=== PATIENT | female | born 1985 | race Caucasian/White ===

== ENCOUNTER 2023-07-14 09:14 | Outpatient (AMB) | payer OTHER, SELFPAY ==
--- NOTE | 2023-07-14 09:39 | A.OFFVIS_ITS ---
Vital Signs 07/14/23 09:50 Height 5 ft 5 in Weight 189 lb 2 oz BMI 31.5 BP 98/63 Blood Pressure Location Lt brachial Position Sitting Pulse 84 Intake Visit Reasons: persistent constipation Intake Note: Patient is seen in office for evaluation and treatment of persistent constipation. 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 Reports having 2-3 BMs per week. Passes very small pebble like pieces that are hard and has to strain a lot. Has done pelvic floor PT x2 for primarily for dyspareunia and urinary incontinence. Obstetric hx if significant for prolonged labor of 36 hours - with vacuum assisted delivery 2018. Had 2nd degree perineal tears. Diet is low in fiber. [facility] Surgical History (Updated 07/14/23 @ 09:56 by LUIS DANIEL Winkler) History of bilateral breast reduction surgery History of tonsillectomy History of loop electrical excision procedure (LEEP) History of lumpectomy of left breast Social History (Updated 07/14/23 @ 09:56 by LUIS DANIEL Winkler) Alcohol intake: former Patient Tobacco Use Status: Never used Tobacco Review of Systems Const All systems reviewed & are unremarkable except as noted in HPI and below Physical Exam Vital Signs: Last Vital Signs Pulse 84 07/14/23 09:50 BP 98/63 07/14/23 09:50 BMI result Body Mass Index 31.5 No acute distress Nonicteric Abdomen soft, nondistended Alert and oriented x3, normal gait Assessment & Plan Assessment & Plan (1) Constipation: Code(s): K59.00 - Constipation, unspecified Category: Medical Plan Reviewed that likely has CIC, a component of pelvic floor dysfunction can not be ruled out given obstetric hx and other assoc sx. Plan: - Labs as below - Add fiber, increase hydration - Add senna in AM and take miralax daily - this can be titrated to effect - Elevate legs while having a BM Follow up in 4 weeks to review response - low threshold to proceed with outlet testing if no significant improvement with above Orders: Orders Complete Blood Count no Diff 07/14/23 K59.00 - Constipation, unspecified Immunoglobulin A 07/14/23 K59.00 - Constipation, unspecified TSH reflex Free T4 07/14/23 K59.00 - Constipation, unspecified Transglutaminase IgA 07/14/23 K59.00 - Constipation, unspecified Coding Level of Care Code New Pt Level 3 (96550) Diagnoses Constipation K59.00
[2023-07-14 09:50] VITALS: BP 98/63; PULSE 84; BMI 31.5
== END 2023-07-14 10:16 | disposition home or self-care (01) ==
PROVIDERS: PCP Internal Medicine; Visit Provider Internal Medicine
DX: K59.00 Constipation, unspecified (principal)
CPT/HCPCS: 99203

== ENCOUNTER → 2023-07-14 09:14 | Outpatient (BNVA) | payer OTHER, SELFPAY | PROVIDERS: PCP Internal Medicine; Visit Provider Internal Medicine ==

== ENCOUNTER 2024-07-24 17:34 | Emergency (ER) | payer OTHER, SELFPAY ==
--- NOTE | 2024-07-24 17:36 | ECG_ITS ---
Test Reason : PALPITATIONS Blood Pressure : */* mmHG Vent. Rate : 80 BPM Atrial Rate : 80 BPM P-R Int : 140 ms QRS Dur : 86 ms QT Int : 372 ms P-R-T Axes : 59 42 20 degrees QTcB Int : 429 ms Normal sinus rhythm Normal ECG No previous ECGs available Referred By: Mila Tapia Electronically Signed By: JOSH ALBERTO
[2024-07-24 17:45] VITALS: BP 124/86; PULSE 89; RESP 20; TEMP 36.2; O2SAT 98; BMI 31.7
--- NOTE | 2024-07-24 17:47 | ED.CHESTPAIN ---
HPI - Chest Pain General Chief Complaint: Arrhythmia/Palpitations Stated Complaint: heart palpitations, pressure Time Seen by Provider: 07/24/24 20:11 Source: patient Mode of arrival: ambulatory Limitations: no limitations History of Present Illness ED Provider: DR. Camacho HPI narrative: 39-year-old female walked into the emergency department for evaluation of 2-3 weeks of intermittent palpitation, it usually happen on a daily basis for few minutes each day, no clear aggravating factor, no clear relieving factor, patient is given up all caffeine drinks, no use of recreational drugs, no use of alcohol, no use of regular cigarette smoking. No chest pain, no shortness of breath, no recent travel, no lower extremity swelling or tenderness. No recent travel, no recent prolonged immobilization . No dysuria, no frequency urination, no hematuria, normal bowel movement, no abdominal pain. Related Data Home Medications ?Medication ?Instructions ?Recorded ?Confirmed bupropion HCl 300 mg 24 hr tablet, 300 mg PO QAM 07/14/23 extended release nifedipine 30 mg tablet,extended 30 mg PO DAILY 07/14/23 release 24 hr norethindrone 1.5 mg-ethinyl 1 tab PO DAILY 07/14/23 estradiol 30 mcg(21)/iron 75 mg(7) tablet (Junel FE 1.5/30 (28)) sertraline 100 mg tablet 100 mg PO DAILY 07/14/23 trazodone 50 mg tablet 50 mg PO BEDTIME PRN 07/14/23 Allergies Allergy/AdvReac Type Severity Reaction Status Date / Time adhesive tape Allergy Rash Verified 07/24/24 17:46 oats Allergy Itching Verified 07/24/24 17:46 wheat Allergy Itching Verified 07/24/24 17:46 Review of Systems Review of Systems: all other systems are reviewed and are negative Constitutional: Reports as per HPI and Reports no additional constitutional complaints Eyes: Reports as per HPI and Reports no additional eye complaints Reports system reviewed and no additional complaints, except as documented Cardiovascular: Reports as per HPI and Reports no additional cardiovascular complaints Respiratory: Reports as per HPI and Reports no additional respiratory complaints Gastrointestinal: Reports as per HPI and Reports no additional gastrointestinal complaints Genitourinary: Reports no additional female genitourinary complaints Musculoskeletal: Reports no additional musculoskeletal complaints Skin/Breast: Reports system reviewed and no additional complaints, except as docu Psychiatric: Reports no additional psychiatric complaints Endocrine: Reports no additional endocrine complaints Hematologic/Lymphatic: Reports no additional hematologic/lymphatic complaints Allergic/Immunologic: Reports no additional allergic/immunologic complaints Reports system reviewed and no additional complaints, except as documented and Reports Abnormal speech present [facility] Past Medical History Surgical History History of bilateral breast reduction surgery History of tonsillectomy History of loop electrical excision procedure (LEEP) History of lumpectomy of left breast Social History Social History Alcohol intake: former Patient Tobacco Use Status: Never used Tobacco Smoked in Last 30 Days: No Use of substances other than those prescribed or required for medical reasons: No Advance Directives: Yes Advance Directives Information Provided: Yes Advance Directives on File: No Physical Exam Vital Signs: Vital Signs: Last Vital Signs Temp 98.5 F 07/24/24 19:38 Pulse 75 07/24/24 19:38 Resp 11 L 07/24/24 19:38 BP 117/78 07/24/24 19:38 Pulse Ox 98 07/24/24 17:45 O2 Del Method Room Air 07/24/24 19:38 O2 Flow Rate 98 07/24/24 19:38 BMI result Body Mass Index 31.7 Vital signs have been reviewed and appear to be correct. Blood pressure elevated. Heart rate normal. Respiratory rate normal. Temperature normal. Oxygen saturation normal. Appearance: Alert. Oriented X3. No acute distress. Head: Normal external exam. Normocephalic. Atraumatic. No Ramirez signs noted. No raccoon eyes noted Eyes: PERRLA. EOMI. Conjunctiva and sclera normal. Eyelids normal. ENT: TM's Normal. Pharynx normal. Uvula midline. Moist mucous membranes. No trismus noted. No drooling noted. No muffled voice noted. Neck: Normal inspection. Neck supple. FROM. No adenopathy. Thyroid Normal. No meningeal signs. No neck mass noted. CVS: Normal heart rate and rhythm. Heart sound normal. No murmurs noted. Pulses normal throughout. Respiratory: No respiratory distress. Painless inspiration. Breath sounds normal. No wheezes/rales/rhonchi noted. Chest nontender. No accessory muscle usage noted or decreased air movement noted. Abdomen: Soft and nontender. Bowel sounds normal in all 4 quadrants. No distention noted. No organomegaly noted. No visible injury noted. Back: No CVA tenderness. Full range of motion noted. Skin: Skin warm and dry. Normal skin color. Normal skin turgor. No rashes/lesions/lacerations noted. Extremities: No lower extremity edema. Extremities exhibit normal range of motion. Extremities nontender. Neuro: Oriented X 3. Cranial nerve exam: II-XII are grossly intact No motor deficit. No sensory deficit. Reflexes normal. Course Course Course Narrative: This is an RME performed by Leslee Tapia SETTER HELPER: Additional HPI, ROS, PE not included below will be deferred to primary provider. Patient is a 39-year-old female who presents emergency department for evaluation. She states that she has been experiencing palpitations every few minutes daily for 1-2 weeks. It is felt sternum rest as well as with activity. She had initially been ignoring it thought it may be due to excessive caffeine intake. But despite stopping caffeine symptoms still persist. She is not certain whether this may be a side effect of her bupropion. Plan: EKG, serum labs Reevaluation(s) Reevaluation #1: 2-3 weeks of subjective palpitation, nothing was detected while patient is on the monitor in the ED, unremarkable lab workup today. Time: 20:34 Medical Decision Making Differential Diagnosis Differential Diagnoses: The differential diagnosis associated with the presentation includes ( Drug abuse, anxiety induced palpitation, , electrolyte derangement, severe anemia.) Admission/Observation Consideration of admission/observation: Escalation of care including admission/observation considered Lab Data MDM Lab Attestation statement: I reviewed the patient's lab results. 07/24/24 18:20 07/24/24 18:20 Labs: Lab Results 07/24/24 Range/Units 18:20 WBC 12.6 H (4.8-10.8) X10*3/uL RBC 4.42 (4.20-5.50) X10*6/uL Hgb 13.3 (12.0-16.0) g/dl Hct 39.0 (37.0-47.0) % MCV 88.2 (80.0-98.0) fL MCH 30.1 (27.0-33.0) pg MCHC 34.1 (31.0-35.0) g/dl RDW 12.7 (11.0-16.0) % Plt Count 137 L (160-400) X10*3/uL MPV 12.0 (9.4-12.3) fL Immature Gran % (Auto) 0.5 H (0.0-0.4) % Neut % (Auto) 62.1 (45-73) % Lymph % (Auto) 30.1 (20-40) % [place] % (Auto) 5.5 (2-11) % Eos % (Auto) 1.2 (0-4) % Baso % (Auto) 0.6 (0-2) % Lymph # (Auto) 3.8 (1.2-4.9) X10*3/uL [place] # (Auto) 0.7 (0.1-1.2) X10*3/uL Eos # (Auto) 0.2 (0.0-0.4) X10*3/uL Baso # (Auto) 0.1 (0.0-0.2) X10*3/uL Abs Immat Gran (auto) 0.06 H (0.00-0.03) X10*3/uL Absolute Neuts (auto) 7.8 (2.0-8.3) x10*3/uL Absolute Nucleated RBC 0.000 (0.0-0.012) X10*3/uL Nucleated RBC % (auto) 0.0 (0.0-0.2) /100WBC Sodium 142 (135-145) mmol/L Potassium 3.8 (3.3-5.1) mmol/L Chloride 107 (96-108) mmol/L Carbon Dioxide 24 (22-29) mmol/L Anion Gap 15 (12-20) BUN 14 (9-16) mg/dL Creatinine 0.76 (0.5-1.4) mg/dL Estim Creat Clear Calc 107.9 Estimated GFR > 60 Random Glucose 98 (60-115) mg/dL Calcium 9.1 (8.4-10.2) mg/dL Magnesium 2.3 (1.6-2.6) mg/dL Total Bilirubin 0.4 (0.0-1.0) mg/dL AST 19 (5-31) U/L ALT 17 (0-31) U/L Alkaline Phosphatase 91 (39-117) U/L Troponin I High Sens < 2.7 (<3.5-17.0) ng/L Total Protein 7.3 (6.5-8.0) g/dL Albumin 4.6 (3.5-5.0) g/dL TSH 1.45 (0.32-4.0) uIU/mL Beta HCG, Quant < 2 mIU/mL Influenza Type A (PCR) NEGATIVE (Negative) Influenza Type B (PCR) NEGATIVE (Negative) RSV RNA Qual (PCR) NEGATIVE (Negative) SARS-CoV-2 RNA (RT-PCR) NEGATIVE (Negative) Independent Interpretation I performed an independent interpretation of an: EKG ( normal sinus rhythm at 80 beats per minutes, normal intervals, no ST-T changes.) Radiology Impression Discussion of test interpretation with radiology: I have reviewed the radiologist's reading. Discharge Plan Discharge Clinical Impression: Palpitations Patient Disposition: Home, Self-Care Instructions: Heart Palpitations (ED) Prescriptions: No Action sertraline 100 mg tablet 100 mg PO DAILY bupropion HCl 300 mg tablet extended release 24 hr 300 mg PO QAM trazodone 50 mg tablet 50 mg PO BEDTIME PRN nifedipine 30 mg tablet extended release 24hr 30 mg PO DAILY norethindrone-e.estradiol-iron [ (28)] 1.5 mg-30 mcg (21)/75 mg (7) tablet 1 tab PO DAILY Referrals: Jing Coffey MD [Primary Care Provider] - Spencer Guzman MD [Physician] - Print Language: Bengali
[2024-07-24 18:28] LABS: MANUAL DIFF FLAG NO
[2024-07-24 18:49] LABS: Basophils Absolute Auto 0.1 X10*3/uL (0.0-0.2); Basophils Percent Auto 0.6 % (0-2); Eosinophils Absolute Auto 0.2 X10*3/uL (0.0-0.4); Eosinophils Percent Auto 1.2 % (0-4); Hemoglobin 13.3 g/dl (12.0-16.0); Imm Gran Abs Auto 0.06 X10*3/uL (0.00-0.03); Imm Gran Pct Auto 0.5 % (0.0-0.4); Lymphocytes Absolute Auto 3.8 X10*3/uL (1.2-4.9); Lymphocytes Percent Auto 30.1 % (20-40); Mean Corpuscular HGB Conc 34.1 g/dl (31.0-35.0); Mean Corpuscular Hemoglobin 30.1 pg (27.0-33.0); Mean Corpuscular Volume 88.2 fL (80.0-98.0); Monocytes Absolute Auto 0.7 X10*3/uL (0.1-1.2); Monocytes Percent Auto 5.5 % (2-11); Neutrophils Absolute Auto 7.8 x10*3/uL (2.0-8.3); Neutrophils Percent Auto 62.1 % (45-73); Platelet Count 137 X10*3/uL (160-400); Red Blood Count 4.42 X10*6/uL (4.20-5.50); Red Cell Distribution Width 12.7 % (11.0-16.0); White Blood Count 12.6 X10*3/uL (4.8-10.8)
[2024-07-24 18:50] LABS: Alanine Aminotransferase 17 U/L (0-31); Albumin Level 4.6 g/dL (3.5-5.0); Alkaline Phosphatase 91 U/L (39-117); Anion Gap 15 (12-20); Aspartate Amino Transferase 19 U/L (5-31); Bilirubin Total 0.4 mg/dL (0.0-1.0); Blood Urea Nitrogen 14 mg/dL (9-16); Calcium 9.1 mg/dL (8.4-10.2); Carbon Dioxide 24 mmol/L (22-29); Chloride 107 mmol/L (96-108); Creatinine Clr Calc Pharmacy 107.9; Estimated Glomerular Filt Rate > 60; Glucose Random 98 mg/dL (60-115); Magnesium 2.3 mg/dL (1.6-2.6); Potassium 3.8 mmol/L (3.3-5.1); Sodium 142 mmol/L (135-145); Total Protein 7.3 g/dL (6.5-8.0)
[2024-07-24 18:54] LABS: Troponin-I High Sensitivity < 2.7 ng/L (<3.5-17.0)
[2024-07-24 19:05] LABS: HCG Quantitative < 2 mIU/mL; TSH reflex Free T4 1.45 uIU/mL (0.32-4.0)
[2024-07-24 19:06] LABS: Influenza A PCR NEGATIVE (Negative); Influenza B PCR NEGATIVE (Negative); Resp Syncy Virus RNA Qual PCR NEGATIVE (Negative); SARS COV2 PCR INHOUSE NEGATIVE (Negative)
[2024-07-24 19:38] VITALS: BP 117/78; PULSE 75; RESP 11; TEMP 36.9
--- NOTE | 2024-07-24 20:32 | PC.NURSE ---
Pt resting comfortably on stretcher. Callbell within reach and patient instructed on use. Pt placed on air sampling and monitoring. VSS.
[2024-07-24 21:05] VITALS: BP 113/79; PULSE 74; RESP 26; TEMP 36.7; O2SAT 97
[2024-07-24 21:25] VITALS: BP 113/79; PULSE 74; RESP 26; TEMP 36.7; O2SAT 97
== END 2024-07-24 21:25 | disposition home or self-care (01) ==
PROVIDERS: Nurse Practitioner Family; Emergency Provider Emergency Medicine; PCP Internal Medicine
DX: R00.2 Palpitations (principal); Z03.818 Encounter for observation for suspected exposure to other biological agents ruled out
CPT/HCPCS: 0241U; 80053; 83735; 84443; 84484; 84702; 85025; 93005; 99283; 99285

== ENCOUNTER → 2024-07-24 17:36 | Outpatient (BNV) | payer OTHER, SELFPAY | PROVIDERS: Emergency Provider Emergency Medicine; PCP Internal Medicine; Visit Provider Internal Medicine | DX: R00.2 Palpitations (principal) | CPT/HCPCS: 93010 ==

== ENCOUNTER 2025-01-31 10:57 | Outpatient (AMB) | payer OTHER, SELFPAY ==
--- OUTSIDE RECORDS SUMMARY | 2025-01-26 13:30 | XMS_ITS | Encounter Summary ---
Author Organization [facility] Address [address] [place] [address] Care Team Providers Care Intraoperative Neuro Tech Name Role Phone Unknown Primary Care Provider [phone] Encounter Details Date Type Department Care Team ([facility] st Contact Info) Description 01/26/2025 1:30 PM EST Ancillary Procedure [facility] Radiology [address] [place] [address] Provider, File Room Social History Tobacco Use Types Packs/Day Years Used Date Smoking Tobacco: Never Alcohol Use Standard Drinks/Week Comments Not Currently 0 (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 Comments Unknown Sex and Gender Information Value Date Recorded Sex Assigned at Female 09/30/2024 2:28 PM EDT Legal Sex Female 2:25 PM EDT Gender Identity Female 09/30/2024 2:28 PM EDT Sexual Orientation Heterosexual (straight) 09/30 2:28 PM EDT documented as of this encounter Plan of Treatment Not on file documented as of this encounter Procedures Procedure Name Priority Date/Time Associated Diagnosis Comments MOY ARCHIVE FOR REFERENCE ONLY US Routine 01/26/2025 1:30 PM EST documented in this encounter Results * MOY Archive for reference only US (01/26/2025 1:30 PM EST) Kyle MALDONADOERSON - 01/26/2025 1:28 PM EST This order has been auto-finalized and does not contain a result. us File Room Provider IMG DIGITIZE FILMS Final Resu lt SCOTTIE [phone] documented in this encounter Visit Diagnoses Not on filedocumented in this encounter Care Teams Intraoperative Neuro Tech Relationship Specialty Start Date End Date Unknown Unknow Provider Address PCP - General 10/18/24 documented as of this encounter
--- NOTE | 2025-01-31 10:58 | MHC.PC.OV ---
Vital Signs 01/31/25 11:01 Height 5 ft 6 in Weight 197 lb 6 oz BMI 31.9 BP 110/72 Blood Pressure Location Lt brachial Position Sitting Respiration 16 Pulse 77 Pulse Source Pulse Oximeter Temp 97.3 F Temp Source Temporal Artery Scan Pulse Oximetry (%) 97 Oxygen Delivery Method Room Air Intake Visit Reasons: f/u weight loss Stick Feeder Required: No Accompanied by: Self / Same As Patient Allergies adhesive tape Allergy (Verified 01/31/25 10:58) Rash oats Allergy (Verified 01/31/25 10:58) Itching wheat Allergy (Verified 01/31/25 10:58) Itching Medication List - Last Reconciled 01/31/25 by Jing Coffey MD betamethasone, augmented 0.05 % appl topical buspirone 7.5 mg PO BID cetirizine 10 mg PO DAILY PRN desvenlafaxine succinate ER 100 mg PO DAILY desvenlafaxine succinate ER 50 mg PO DAILY naltrexone mg PO .QD norethindrone-e.estradiol-iron 1.5 mg-30 mcg (21)/75 mg (7) (.08/20 (28)) 1 tab PO DAILY trazodone 50 mg PO BEDTIME PRN Tobacco use date assessed: 01/31/25 Dental Screening Dental Screen Date: 01/31/25 Did you have a dental visit in the last 12 months?: Yes Did you have a dental problem in the last 6 months where you did not have access to dental care?: No Was dental information given to patient?: Patient has dentist HPI HPI Comments History of Present Illness Details The patient is a 39-year-old female presenting to [facility] care to follow up on endometriosis, low platelets, and to discuss weight management options. Endometriosis: The patient was previously seen for pelvic issues and an ultrasound revealed a cyst. She subsequently saw an endometriosis specialist in [place]. She had a repeat ultrasound a few weeks ago, which showed the original cyst is no longer visible. She has sent the original ultrasound and MRI reports to the specialist and is awaiting a response. Thrombocytopenia: The patient has a history of low platelets, which was noted by a functional medicine provider to be trending down again. This issue has been ongoing for seven years, since she was . She saw a apprentice plant attendant at [facility] who was reportedly unconcerned by the levels. Prediabetes: Recent lab results from [facility] showed she was in the prediabetic range. However, a subsequent hemoglobin A1c level on December 15 was 5.3%, which is within the normal range. Weight Management: The patient is interested in starting a weight loss injection. Her insurance plan covers [employer]. She reports chronic constipation but denies nausea. 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 Diagnostic Results: - Ultrasound: A recent ultrasound showed that a previously identified cyst is no longer visible. - Labs (from October): Platelet count of 114; other readings were around 122 and in the low 100s. - Labs: Indicated prediabetic range at one point. - Labs (December 15): Hemoglobin A1c was 5.3%. - Labs: Showed elevated apolipoprotein B and C-reactive protein (CRP) - Labs: Indicated some autoimmune markers consistent with Trent's. - Labs: Celiac screen was negative. Review of Systems -General: Reports clothes feeling looser and looking less fluffy. -Gastrointestinal: Reports chronic constipation. Denies nausea. - Integumentary/Extremities: Denies edema or swelling on pressing. Physical Exam - Constitutional: Well-appearing female. - Respiratory: Lungs are clear to auscultation bilaterally. - Cardiovascular: A very soft murmur is noted on auscultation. Normal s1, s2 - Abdomen: Soft, non-tender to palpation, with good bowel sounds. - Lymphatic: No cervical lymphadenopathy on palpation. - Extremities: Trace edema noted. Assessment and Plan 1. Endometriosis - The patient has been evaluated by a specialist, and a recent ultrasound shows resolution of a previously seen cyst. 2. Thrombocytopenia - The patient has a history of low platelets that has been ongoing since a seven years ago. - A previous hematology consult was reportedly dismissive. - Plan is to recheck CBC and refer for a second opinion with the in-house hematology team. 3. Prediabetes and Weight Management - The patient has a history of results in the prediabetic range, though a recent A1c was normal. - She is interested in medical weight loss. - Plan is to start Wegovy 0.25 mg weekly, titrating up monthly based on tolerance - The patient was counseled on potential side effects like constipation and nausea, as well as the importance of using a nutrition tracker and engaging in regular aerobic exercise. - Plan to recheck hemoglobin A1c today. 4. Heart Murmur - A very soft murmur was auscultated on exam. - Given the patient's family history of a bicuspid aortic valve, will obtain records re date of last echocardiogram and consider reordering. 5. Health Maintenance - Follow up in 4 months for physical Discussion Notes I had a discussion with the patient regarding her follow-up for endometriosis and noted she has already seen a specialist and is awaiting his feedback. We discussed her chronic low platelets, and I explained that we would recheck her levels today and I would refer her for a second opinion with our hematology team here. We extensively discussed initiating a weight loss injection, specifically Wegovy, which is covered by her insurance. I explained the starting dose of 0.25 mg, the titration schedule of increasing the dose every four weeks, and the process for monitoring side effects like constipation and nausea via the patient portal. I also emphasized the importance of adjunctive lifestyle measures, including tracking caloric intake with an ning and performing three hours of aerobic exercise per week to help with insurance approvals for higher doses and to maintain weight loss. Patient Instructions - We will start you on Wegovy for weight management. We will begin at the 0.25 mg dose. I will send the prescription to your pharmacy. - Please message me through the patient portal during the third week of each new dose of Wegovy to let me know your weight and if you are having any side effects, so we can plan for the next dose increase. - It is recommended to use a nutrition tracker ning like [employer] to monitor your daily calories and to get at least three hours of aerobic exercise per week. [facility] Medical History (Updated 01/31/25 @ 11:46 by Jing Coffey MD) Endometriosis Prediabetes Anemia, unspecified Idiopathic thrombocytopenic purpura (ITP) Anxiety Depression Surgical History History of bilateral breast reduction surgery History of tonsillectomy History of loop electrical excision procedure (SERGIOP) History of lumpectomy of left breast Family History (Updated 01/31/25 @ 09:34 by Jing Coffey MD) Mother Bicuspid aortic valve Borderline diabetes Primary hypertension Osteoporosis Sleep apnea Paternal Grandfather Stroke Skin cancer FH: prostate cancer Maternal Grandfather Alcoholism Paternal Grandmother Pulmonary embolism Social History Housing: House Alcohol intake: former Patient Tobacco Use Status: Never used Tobacco e-Cigarette/Vaping Use: Never Used service: No Current occupational status: employed 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 How often do you have a drink containing alcohol?: Never 3. How often do you have six or more drinks on one occasion?: Never Total Score: 0 Physical exam (Primary Care) Vital Signs: Last Vital Signs Temp 97.3 F 01/31/25 11:01 Pulse 77 01/31/25 11:01 Resp 16 01/31/25 11:01 BP 110/72 01/31/25 11:01 Pulse Ox 97 01/31/25 11:01 Oxygen Delivery Method Room Air 01/31/25 11:01 BMI result Body Mass Index 31.9 Tobacco/Smoking Status: Tobacco use Status Tobacco use date assessed 01/31/25 01/31/25 11:06 Patient Tobacco Use Status Never used Tobacco 01/31/25 10:59 e-Cigarette/Vaping Use Never Used 01/31/25 11:06 Coding Level of Care Code Est Pt Level 4 (23909) Complex EM visit Add On G2211 Diagnoses Idiopathic thrombocytopenic purpura (ITP) D69.3 Prediabetes R73.03 Time Spent (min) 37 Comment visit time, chart review, physical exam and ordering of tests Assessment & Plan Assessment & Plan (1) Idiopathic thrombocytopenic purpura (ITP): Code(s): D69.3 - Immune thrombocytopenic purpura Category: Medical (2) Prediabetes: Code(s): R73.03 - Prediabetes Category: Medical Plan Plan - Will order labs today to recheck CBC with hemoglobin A1c, renal function, electrolytes, and liver function. - Will prescribe Wegovy 0.25 mg weekly for weight management, with plans to titrate the dose every four weeks based on patient's tolerance and side effect profile. Orders: Orders Hemoglobin A1c Today D69.3 - Immune thrombocytopenic purpura, R73.03 - Prediabetes Complete Blood Count Auto Diff Today D69.3 - Immune thrombocytopenic purpura, R73.03 - Prediabetes Comprehensive Met. Panel Today D69.3 - Immune thrombocytopenic purpura, R73.03 - Prediabetes Medications: New semaglutide (weight loss) (Edvin) administer weeks 1 through 4 of therapy 0.25 mg (0.5 mL) subcut QWEEK 2 mL 1RF
[2025-01-31 11:01] VITALS: BP 110/72; PULSE 77; RESP 16; TEMP 36.3; O2SAT 97; BMI 31.9
--- OUTSIDE RECORDS SUMMARY | 2025-01-31 13:08 | XMS_ITS | Clinical Summary ---
Author Organization [facility] Address [address] [place] [id number] Care Team Providers Care Chief Orthoptist Name Role Phone Unknown Primary Care Provider [phone] Allergies Active Allergy Reactions Criticality Noted Date Comments Adhesives/Tape Rash/Dermatitis High 02/25/2023 Takes my skin off. Even heart monitor leads cause issue. Paper tape NOT ok after surgery 02/25 Oat Dermatitis,Itching,R nirmal/ Dermatitis Low 11/21/2021 Wheat Itching Low 12/27/2024 Medications betamethasone dipropionate augmented (DIPROLENE-AF) 0.05 % cream Apply topically. 12/11/2024 Active busPIRone (BUSPAR) 7.5 MG tablet Take 1 tablet (7.5 mg total) by mouth 3 (three) times a day. Active cetirizine (ZyrTEC) 10 MG tablet Take 1 tablet (10 mg total) by mouth. Active Desvenlafaxine ER (KHEDEZLA) 100 MG Tablet SR 24 hr Take 1 tablet by mouth. Active Magnesium Citrate 100 MG Cap 600 mg daily. Active traZODone (DESYREL) 50 MG tablet Take 1 tablet (50 mg total) by mouth nightly. 05/21/2024 Active Encounters Date Type Department Care Team Description 01/26/2025 1:30 PM EST Ancillary Procedure [facility] Radiology [address] [place] [phone] Provider, File Room 01/07/2025 8:05 AM EDT Ancillary Procedure [facility] Radiology [address] [place] [phone] Provider, File Room 01/04/2025 Scanned Document [facility] [address] [place] [address] Brandon Lam MD 12/27/2024 1:00 PM EDT Office Visit Gynecologic Specialties at [facility] [address] [place] [address] Brandon Lam MD Endometrioma of left ovary (Primary Dx); Constipation, unspecified constipation type; Dysmenorrhea 12/27/2024 Travel from Last 3 Months Family History Medical History Relation Name Comments Anxiety disorder Brother Jairo Pancotti Arthritis Father Mendoza Pancotti Hypertension Father Mendoza Pancotti Glaucoma Maternal Grandmother Barbie [place] Osteoporosis Maternal Grandmother Barbie [place] Anxiety disorder Mother Chio Pancotti Arthritis Mother Chio Pancotti Asthma Mother Chio Pancotti Hypertension Mother Chio Pancotti Learning disabilities Mother Chio Pancotti defects Son Danilo Horton Type 1 Laryn geal Cleft Genetic Screening Son Danilo Horton Relation Name Status Comments Brother Jairo Pancotti Alive Father Mendoza Pancotti Alive Maternal Grandmother Barbie [place] Alive Mother Chio Pancotti Alive Son Danilo Horton Alive Social History Tobacco Use Types Packs/Day Years Used Date Smoking Tobacco: Never Tobacco Cessation:Counseling Given: Not Answered Alcohol Use Standard Drinks/Week Comments Not Currently 0 (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 Comments Unknown Sex and Gender Information Value Date Recorded Sex Assigned at Female 09/30/2024 2:28 PM EDT Legal Sex Female 2:25 PM EDT Gender Identity Female 09/30/2024 2:28 PM EDT Sexual Orientation Heterosexual (straight) 09/30 2:28 PM EDT Last Filed Vital Signs Vital Sign Reading Time Taken Comments Blood Pressure 115/72 12/27/2024 1:14 PM EDT Pulse 77 12/27/2024 1:14 PM EDT Temperature 36.7 C (98.1 F) 12/27/2024 1:14 PM EDT Respiratory Rate 18 12/27/2024 1:14 PM EDT Oxygen Saturation 96% 12/27/2024 1:14 PM EDT Inhaled Oxygen Concentration - - Weight 87.6 kg (193 lb 1.6 oz) 12/27/2024 1:14 P M EDT Height 165.1 cm (5' 5 ) 12/27/2024 1:14 PM EDT Body Mass Index 32.13 12/27/2024 1:14 PM EDT Plan of Treatment Health Maintenance Due Date Last Done Comments Hepatitis C Virus Screening 1985 HIV Screening 1998 DTaP/Tdap/Td Vaccines (1 - Tdap) 2004 Hepatitis B Vaccines (1 of 3 - 19+ 3-dose series) 2004 Pap Smear (Ages 21-65) 2006 Influenza Vaccine 10/22/2024 02/06/2021, , 01/01/2019, Additional history exists COVID-19 Vaccine (2024- season) 2024 02/23/2021, 07/02/2020, 06/11/2020 HPV Vaccines (No Doses Required) Completed Pneumococcal Vaccine: Pediatric (0-5 Years) and At-Risk Patients (6 to 49 Years) Aged Out No longer eligible based on patient's age to complete this topic Procedures Procedure Name Priority Date/Time Associated Diagnosis Comments MOY ARCHIVE FOR REFERENCE ONLY US Routine 01/26/2025 1:30 PM EST MOY ARCHIVE FOR REFERENCE ONLY MR Routine 01/07/2025 8:05 AM EDT from Last 3 Months Results * MOY Archive for reference only US (01/26/2025 1:30 PM EST) Narrative SCOTTIE - 01/26/2025 1:28 PM EST This order has been auto-finalized and does not contain a result. us File Room Provider IMG DIGITIZE FILMS Final Resu lt SCOTTIE [phone] * MOY Archive for reference only MR (01/07/2025 8:05 AM EDT) Narrative SCOTTIE - 01/07/2025 8:03 AM EDT This order has been auto-finalized and does not contain a result. us File Room Provider IMG DIGITIZE FILMS Final Resu lt SCOTTIE [phone] from Last 3 Months Insurance PPO Care Teams Chief Orthoptist Relationship Specialty Start Date End Date Unknown Unknow Provider Address PCP - General 10/18/24
--- OUTSIDE RECORDS SUMMARY | 2025-01-31 13:08 | XMS_ITS | Data Portability ---
Author Organization [facility] - Jose Carter, Telehealth Address [address] [facility] [address] [place] [address] Care Team Providers Care Workforce Advisor Name Role Phone NEVA ANAM Primary Care Provider Assessment Encounter Date Assessment Date Assessment LastModified by Organization Details LastModified Time 10/22/2024 10/22/2024 >50% of this 30 minute visit was spent counselling and coordinating care. This case was discussed with the supervising physician, Dr. Jesus Leonard. kaiser Not available 10/19/2024 19:44:59 11/29/2024 11/29/2024 Patient presented for follow up of labs. Studies ordered as below. Discussed plan with patient, who expressed understanding. Follow up as noted below. >50% of this 45 minute visit was spent counselling and coordinating care. This case was discussed with the supervising physician, Dr. Jesus Leonard. kaiser Not available 11/29/2024 18:01:54 12/07/2024 12/07/2024 Spent >50% of 30 minute nutrition visit discussing Nutrition Plan of Care christine Not available 12/07/2024 10:11:27 12/24/2024 12/24/2024 Patient presented for follow up of labs. Studies ordered as below. Discussed plan with patient, who expressed understanding. Follow up as noted below. >50% of this 30 minute visit was spent counselling and coordinating care. This case was discussed with the supervising physician, Dr. Jesus Leonard. kaiser Not available 12/24/2024 07:03:44 01/06/2025 01/06/2025 Spent >50% of 30 minute nutrition visit discussing Nutrition Plan of Care christine Not available 01/06/2025 12:14:05 Plan of Treatment Reminders Order Date Submit Date Provider Last Modified By Organization Details Last Modified Time Details Appointments Virtual Follow Up 2024 08:30A M DANILO Valderrama Not available Not available Not available Nutrition Virtual FollowUp 2024 02:30P M NATACHA COLMENARES , RD Not available Not available Not available Lab tissue transglut aminase, iga+igg Ab, serum 2024 025 [facility], [address], [facility], [place], [address], 11/13/2024 13:43:44 gliadin peptide igg +iga Ab, serum 2024 025 [facility], [address], [facility], [place], [address], 11/13/2024 13:43:44 iga, quantitat marley, serum 2024 025 [facility], [address], [facility], [place], [address], 11/13/2024 13:43:45 tyron sp igg+igm+i ga Ab, serum 2024 025 [facility], [address], [facility], [place], [address], 11/13/2024 13:43:51 TSH, serum or plasma 2024 025 [facility], [address], [facility], [place], [address], 11/13/2024 13:43:49 T3, free, serum or plasma 2024 025 [facility], [address], [facility], [place], [address], 11/13/2024 13:43:50 T4, free, serum 2024 025 [facility], [address], [place], [address], 11/13/2024 13:43:48 thyroid panel, serum 2024 025 [facility], [address], [place], [address], 11/13/2024 13:43:37 vitamin A (retinol) , serum 2024 025 [facility], [address] [place] [address], [place], [address], 11/13/2024 13:43:41 selenium, red blood cells 2024 025 [facility], [address], [facility], [place], [address], 11/13/2024 13:43:52 iodine, urine 2024 025 [facility], [address] [place] [address], [place], [address], 11/13/2024 13:43:42 pregnenol one, serum 2024 025 [facility], [address], [place], [address], 10/29/2024 04:02:34 dhea-sulf ate, serum 2024 025 [facility], [address] [place] [address], [place], [address], 11/13/2024 13:43:46 estradiol , serum 2024 025 [facility], [address], [facility], [place], [address], 11/13/2024 13:43:50 progester one, serum 2024 025 [facility], [address], [facility], [place], [address], 11/13/2024 13:43:48 dhea-sulf ate, serum 2024 025 [facility], [address], [facility], [place], [address], 10/29/2024 04:02:35 pregnenol one, serum 2024 025 [facility], [address], [facility], [place], [address], 11/13/2024 13:43:46 testoster one, free + total, serum 2024 025 [facility], [address], [facility], [place], [address], 11/13/2024 13:43:39 vitamin B6 (pyridoxi ne), plasma 2024 025 [facility], [address], [facility], [place], [address], 11/13/2024 13:43:42 folate, serum 2024 025 [facility], [address], [facility], [place], [address], 11/13/2024 13:43:47 vitamin D, 25-hydrox y, total, serum 2024 025 [facility], [address], [place], [address], 11/13/2024 13:43:51 carnitine , free+tota l+esters, serum 2024 025 [facility], [address], [facility], [place], [address], 11/13/2024 13:43:45 coenzyme Q10, total, serum or plasma 2024 025 [facility], [address], [facility], [place], [address], 11/13/2024 13:43:54 magnesium , RBC 2024 025 [facility], [address], [facility], [place], [address], 11/13/2024 13:43:41 vitamin B12, serum 2024 025 [facility], [address], [facility], [place], [address], 11/13/2024 13:43:49 CMP, serum or plasma 2024 025 [facility], [address], [facility], [place], [address], 11/13/2024 13:43:40 ferritin, serum or plasma 2024 025 [facility], [address], [facility] [address], [place], [address], 11/13/2024 13:43:47 homocyste ine, moles/vol ume, serum 2024 025 [facility], [address], [facility], [place], [address], 11/13/2024 13:43:53 gamma-glu tamyl transfera se (ggt), serum 2024 025 [facility], [address], [facility], [place], [address], 11/13/2024 13:43:39 HbA1c (hemoglob in A1c), blood 2024 025 [facility], [address], [facility], [place], [address], 11/13/2024 13:43:53 unlisted lab - omegachec k(R) 2024 025 [facility], [address], [facility], [place], [address], 11/13/2024 13:43:54 testoster one, free + total, serum 2024 025 [facility], [address], [facility] [address], [place], [address], 10/22/2024 13:02:53 unlisted lab - cardio iq(R) insulin resistanc e panel with score 2024 025 [facility], [address], [facility], [place], [address], 11/13/2024 13:43:38 lipid panel, serum 2024 025 [facility], [address], [facility], [place], [address], 11/13/2024 13:43:38 uric acid, serum or plasma 2024 025 [facility], [address], [facility], [place], [address], 11/13/2024 13:43:40 leptin, serum 2024 025 [facility], [address], [facility], [place], [address], 11/13/2024 13:43:43 CBC w/ auto diff 2024 025 [facility], [address], [facility], [place], [address], 11/13/2024 13:43:43 zinc, RBC 2024 025 [facility], [address], [facility], [place], [address], 11/13/2024 13:43:52 Referral None recorded. Procedures None recorded. Surgeries None recorded. Imaging None recorded. Medication Orders compounde d medicatio n 2024 025 [facility], [address] [place] [address], [place], [address], 12/24/2024 10:54:10 Diflucan 100 mg tablet 2024 025 [id number], [address] [place] [address], [id number], 12/27/2024 05:01:19 lactulose 10 gram/15 mL oral solution 2024 025 [facility] #[id number], [address] [place] [address], [id number], 10/22/2024 13:02:25 Patient Targets Encounter Date Encounter Id Patient Goals Patient Target Last Modified By Organization Details Last Modified Time 10/22/2024 [id number] 1.) Unexplained weight gain/desire to lose weight 2.) potential endometriosis 3.) constipation ejankauskas Not available 10/22/2024 09:19:12 11/29/2024 [id number] 1.) Unexplained weight gain/desire to lose weight 2.) potential endometriosis 3.) constipation ejankauskas Not available 11/28/2024 22:01:44 12/24/2024 [id number] 1.) Unexplained weight gain/desire to lose weight 2.) potential endometriosis 3.) constipation ejankauskas Not available 12/24/2024 07:02:26 Patient Instructions Encounter Date Encounter Id Patient Instructions Last Modified By Organization Details Last Modified Time 10/22/2024 [id number] Dear Nevaeh, It was so wonderful to meet you today! Please see our visit summary below. We want to make sure your pillars of health are solid, as this will help your body achieve your health goals and optimize your sense of wellness. Our plan is: Nutrition: Eat a more whole food plant based diet. Physical: 150 min/wk of moderate exercise and strength train 3x/wk. Reduce toxins: Minimize alcohol, chemicals, screens as much as possible. Stress reduction: Regular practice (5-20 mins/day). Some great options you can try: daily gratitude journaling, meditation (apps: 10% happier, waking up, The Way), breathwork, box breathing. Sleep: 7-9 hours/night. No screens 1 hr before bed, cool/dark/quiet environment. Make sleep non-negotiable! Emotional: Continue to return home to yourself. Touch in daily. Social/Spiritual: Cultivate positive social support and personal purpose - what does this look like for you? Continue your prescriptions as prescribed. Start these supplements while awaiting the results of your preliminary testing: Constipation: - Start Magnesium Citrate 1 capsule at night, increase up to max 6 capsules daily, for goal 1 BM daily. Decrease if need for loose stool. Possible Endometriosis - Consider trying acupuncture for support with hormone health Preliminary testing (Phase One): FASTING (no food for 8 hours, water/black coffee ok) lab visit at [facility]: (deductible or co-insurance may apply). Please make an appointment at [email or web address] These lab tests will get us a basic picture of what s currently happening in your body. Please stop your supplements three days before the test! Please do Hormone Blood tests (progesterone, Estradiol, FSH/LH) approx 7 days before next cycle OR approx Day #21 if you have 28 day cycles. At home, do these kits and send them directly to the company. Please visit [email or web address] for descriptions and instructions on completing the kits. General Testing: TrioSmart Breath Test: ($349, partially covered by insurance, covered by Medicare): This is a breath test you complete at home. This checks for bacterial overgrowth in your gut which could be causing your symptoms. I will send lactulose to your pharmacy: Please follow the instructions in the attached email as to when to take the lactulose. Tap2print Food sensitivity panel: ($238, not covered by insurance): This is either a finger stick you do at home or a blood test drawn at [facility]; please let the staff know which option you prefer (FASTING NOT NEEDED). This tests if food is triggering inflammation in your body, causing your symptoms. HUMap Hormone Test ($199, not covered by insurance but can apply to have covered): This is a comprehensive test of your hormones and gives us a lot of information as to how you are detoxifying estrogen. Please obtain your sample 7 days before you start your period (For example, if you have a 28 day cycle obtain the sample on day 21. You can make it a day before or after if this is more convenient for you ie. falls on a weekend). Down the line: - Repeat stool test - Mold reassessment/treatm ent - Consider Bartonella/TBRF treatment if needed As part of your membership, you have access to a free musculoskeletal assessment with our High School Social Science Teacher, Dread, and personal nutritional counseling with our wood crew supervisor, Natacha. Please let us know if you want to take advantage of these opportunities. As a member you get priority access to [facility], a spa-like suite that houses our Wellness IV Therapy area, our hyperbaric chamber, our PEMF mat, and more! Please see [email or web address] for more information. Member only discounts: [email or web address] Please schedule a follow up appointment in 4-6 weeks for 45 minutes so we can review the results and continue the next steps of our journey! With gratitude, Delphine saab Not available 10/22/2024 13:00:50 Educated the patient on the treatment options and the diagnosis. Discussed the risks and the benefits of the treatment plan. Discussed alternative treatment options. Discussed the side effects of the medications and herbal preparations initiated at today s exam. Discussed the potential intermediate complications with treatment. Appropriate follow up and red flag s/s discussed. Discussed the importance of establishing a relationship with a specialist. Discussed dangers of and treatment of this condition. Patient elects to start treatment. Discussed with the patient that all health optimization treatment is voluntary in nature and not medically needed unless stated elsewhere. Vitamin and nutritional counseling performed. Encouraged to continue routine care with PCP and/or specialists. Discussed treatment modalities that are not FDA approved for given indication unless started elsewhere. kaiser Not available 10/19/2024 19:47:36 11/29/2024 [id number] Dear Nevaeh, It was wonderful to see you today! Please see our visit summary below. We want to make sure your pillars of health are solid, as this will help your body achieve your health goals and optimize your sense of wellness. Our plan is: Nutrition: Eat a more whole food plant based diet. Physical: 150 min/wk of moderate exercise and strength train 3x/wk. Reduce toxins: Minimize alcohol, chemicals, screens as much as possible. Stress reduction: Regular practice (5-20 mins/day). Some great options you can try: daily gratitude journaling, meditation (apps: 10% happier, waking up, The Way), breathwork, box breathing. Sleep: 7-9 hours/night. No screens 1 hr before bed, cool/dark/quiet environment. Make sleep non-negotiable! Emotional: Continue to return home to yourself. Touch in daily. Social/Spiritual: Cultivate positive social support and personal purpose - what does this look like for you? Continue your prescriptions as prescribed. Start these supplements while awaiting the results of your preliminary testing: GI Health - Aim to avoid Whey for 6 months - Continue Magnesium Citrate 1 capsule at night, increase up to max 6 capsules daily, for goal 1 BM daily. Decrease if need for loose stool. - We will discuss GI health at next appointment Candidiasis - Start Diflucan 100mg 1 cap daily x 21 days (avoid alcohol during this time) - Will reassess next steps at your next appointment as you did not tolerate Candibal in the past - Please Tyron Diet pdf in email - Let's have you meet with Natacha for support and guidance! - Consider MCT oil, Dysbioban in the future Hormone Health/Possible Endometriosis - Start Inositol 1 scoop at night - Start Estrobal 2 capsules daily - Nutrition that can support hormone health: green tea, cruciferous veggies - Consider trying acupuncture for support with hormone health Insulin Resistance - Let's have you meet with Natacha for additional nutrition support - The inositol above is helpful for insulin resistance - Consider trial CGM to better understand how your body responds to foods (Stelo $99 for 1 month) - Recommend walking 10 minutes after meals, this helps improve blood glucose management - Eat in this order: Protein, Carb, Glucose with meals- to help balance glucose levels High Cholesterol - Slowly resume home PGX: start with 1 capsule daily and increase as tolerated. If constipation increases, please stop. - Let's have you meet with Natacha for additional support! Adrenal Health - Start AdrenaPlus 1-2 capsule in the morning and 1-2 capsules in the early afternoon if needed - It's important we support you in adding more self care/relaxation into your days- please start a 5-15 minute daily practice: Meditaiton (Insight Timer, HeadSpace, Calm), binurial beats, box breathing, gratitude journaling, slow walk in nature, breathwork - Gentle add movement into your week- Consider starting with regular walks! Euthyroid Hashimotos - Trial gluten free for 3 months, studies have shown eating gluten free can improve jagdish's/thyroid health. Thrombocytopenia - Referral to hematology for further evaluation (I will await receiving a message from you prior to sending) Low Ferritin - Increase iron rich food sources: Animal- liver, red meat, oysters, clams, turkey, eggs, shrimp, sardines Plant (have with vitamin C for absorption)- fortified grains, tofu, spinach, navy beans, pumpkin seeds, lentils, hemp and flax seeds, sesame, nuts like almonds, pistachios, cashews, pine nuts, macadamia nuts - Consider starting Gentle Iron at next appt, address constipation first History of Bartonella Infection - Check [employer]ix Bartonella FISH test ($220) Down the line: - Repeat stool test - Mold reassessment/treatm ent (let's first focus on improve regular bowel movements as this is important for detox) Please schedule a 30 minute follow up appointment in 4-6 weeks to check in and continue on our journey! If you would like to schedule a 15 minute appointment to touch base on any questions you have, please do. I know we reviewed many things during your appointment today and I want you to feel confident in our next steps. In gratitude, Delphine saab Not available 11/29/2024 18:08:56 Educated the patient on the treatment options and the diagnosis. Discussed the risks and the benefits of the treatment plan. Discussed alternative treatment options. Discussed the side effects of the medications and herbal preparations initiated at today s exam. Discussed the potential intermediate complications with treatment. Appropriate follow up and red flag s/s discussed. Discussed the importance of establishing a relationship with a specialist. Discussed dangers of and treatment of this condition. Patient elects to start treatment. Discussed with the patient that all health optimization treatment is voluntary in nature and not medically needed unless stated elsewhere. Vitamin and nutritional counseling performed. Encouraged to continue routine care with PCP and/or specialists. Discussed treatment modalities that are not FDA approved for given indication unless started elsewhere. kaiser Not available 11/28/2024 22:02:09 12/07/2024 [id number] Dear Nevaeh, It was great to chat with you! I'm glad to hear that you've made some positive dietary changes! Please see our visit summary below. I have put a request for PT to Delphine and she told me she will put in a referral for you! Hope this helps! Try sugar-free liquid IV to manage carbs Insulin resistance - Timing of meals- Once you break your fast for the day, aim to eat every 3-4 hours - Balancing Meals - carbs + protein base for meals or carbs + protein/fat for snacks - Cut simple sugars and choose complex carbs; increase fiber - Make sure you're hydrated - Move your body- aim for daily physical movement; walking after meals for 7-10 minutes if possible - MCT oil can be helpful in between meals for satiety/fullness/cr avings -Focus on getting good quality sleep every night- 7-9 hours Please let me know if you have any questions. With gratitude, Natacha Colmenares, MS, RDN, LDN kristanyanira Not available 12/08/2024 16:37:02 f/u 1 month kristanyanira Not available 10:11:31 12/24/2024 [id number] Dear Nevaeh, It was wonderful to see you today! Please see our visit summary below. We want to make sure your pillars of health are solid, as this will help your body achieve your health goals and optimize your sense of wellness. Our plan is: Nutrition: Eat a more whole food plant based diet. Physical: 150 min/wk of moderate exercise and strength train 3x/wk. Reduce toxins: Minimize alcohol, chemicals, screens as much as possible. Stress reduction: Regular practice (5-20 mins/day). Some great options you can try: daily gratitude journaling, meditation (apps: 10% happier, waking up, The Way), breathwork, box breathing. Sleep: 7-9 hours/night. No screens 1 hr before bed, cool/dark/quiet environment. Make sleep non-negotiable! Emotional: Continue to return home to yourself. Touch in daily. Social/Spiritual: Cultivate positive social support and personal purpose - what does this look like for you? Start LDN: take 1 pill (1.5mg) nightly, increase by 1.5mg vinicius 7-10 days as tolerated, to goal 4.5mg (3 pills)- we will then change your prescription to 4.5mg pills so you are only taking 1. ([facility]) GI Health/Constipation - GI Effects stool Test with H.PYLORI: ($189-$313 depending on insurance, covered by Medicare): This is a stool test you This checks your gut bacteria as well as potential parasites in your body, as this may be part of what s causing your symptoms. Complete at home. - Aim to avoid Whey for 6 months - Continue Magnesium Citrate 1 capsule at night, increase up to max 6 capsules daily, for goal 1 BM daily. Decrease if need for loose stool. - Start MCT oil 1-2 tbsp daily - If constipation persists, can try: Motility Activator ([employer]) 2 capsules at night - Good hydration: at least 64oz - Increase fiber: quincy seeds, ground flax seeds, there is fiber in the inositol as well! - We will discuss GI health at next appointment Candidiasis - Hold on candibal for now, and check stool test. - Start MCT oil 1-2 tbsp daily - Please Tyron Diet pdf in email - Let's have you meet with Natacha for support and guidance! Hormone Health/Possible Endometriosis - Continue Inositol 1 scoop at night - Continue Estrobal 2 capsules daily - Nutrition that can support hormone health: green tea, cruciferous veggies - Consider trying acupuncture for support with hormone health Insulin Resistance - Let's have you meet with Natacha for additional nutrition support - The inositol above is helpful for insulin resistance - Consider trial CGM to better understand how your body responds to foods (Stelo $99 for 1 month) - Recommend walking 10 minutes after meals, this helps improve blood glucose management - Eat in this order: Protein, Carb, Glucose with meals- to help balance glucose levels - Consider GLP-1 in the future, let's focus on healing your gut first High Cholesterol - Slowly resume home PGX: start with 1 capsule daily and increase as tolerated. If constipation increases, please stop. - It's great you're meeting with Natacha! Adrenal Health - Continue AdrenaPlus 1-2 capsule in the morning and 1-2 capsules in the early afternoon if needed - It's important we support you in adding more self care/relaxation into your days- please start a 5-15 minute daily practice: Meditaiton (Insight Timer, HeadSpace, Calm), binurial beats, box breathing, gratitude journaling, slow walk in nature, breathwork - Gentle add movement into your week- Consider starting with regular walks! Euthyroid Hashimotos - Trial gluten free for 3 months, studies have shown eating gluten free can improve jagdish's/thyroid health. Thrombocytopenia - Referral to hematology for further evaluation (I will await receiving a message from you prior to sending) Low Ferritin - Increase iron rich food sources: Animal- liver, red meat, oysters, clams, turkey, eggs, shrimp, sardines Plant (have with vitamin C for absorption)- fortified grains, tofu, spinach, navy beans, pumpkin seeds, lentils, hemp and flax seeds, sesame, nuts like almonds, pistachios, cashews, pine nuts, macadamia nuts - Consider starting Gentle Iron at next appt, address constipation first History of Bartonella Infection - Hold IGenix Bartonella FISH test ($220)- will discuss after stool test/improving constipation Down the line: - Consider LDN, will continue to discuss - Mold reassessment/treatm ent (let's first focus on improve regular bowel movements as this is important for detox) Please schedule a 30 minute follow up appointment in 4-6 weeks to discuss stool test results. In gratitude, Delphine saab Not available 12/24/2024 10:51:51 Educated the patient on the treatment options and the diagnosis. Discussed the risks and the benefits of the treatment plan. Discussed alternative treatment options. Discussed the side effects of the medications and herbal preparations initiated at today s exam. Discussed the potential physician general practice complications with treatment. Appropriate follow up and red flag s/s discussed. Discussed the importance of establishing a relationship with a specialist. Discussed dangers of and treatment of this condition. Patient elects to start treatment. Discussed with the patient that all health optimization treatment is voluntary in nature and not medically needed unless stated elsewhere. Vitamin and nutritional counseling performed. Encouraged to continue routine care with PCP and/or specialists. Discussed treatment modalities that are not FDA approved for given indication unless started elsewhere. [email or web address] Not available 12/24/2024 07:02:31 01/06/2025 [id number] Dear Nevaeh, It was great to chat with you! Please see our visit summary below. I'm so glad you have started PT! We will discuss how to continue exercise when your visits are done. -STUR could be a substitute for SHANITA -Aim to avoid eating after you are full at the end of the meal. Take a pause to check in with yourself -Check ingredients to see where you may be having some gluten Insulin resistance - Timing of meals- Once you break your fast for the day, aim to eat every 3-4 hours -Nice job here - Balancing Meals - carbs + protein base for meals or carbs + protein/fat for snacks - Cut simple sugars and choose complex carbs; increase fiber - Make sure you're hydrated -I'm glad this has improved - Move your body- aim for daily physical movement; walking after meals for 7-10 minutes if possible -2x/ week, aim for 1x at home with exercise, great job with walking - MCT oil can be helpful in between meals for satiety/fullness/cr avings -Focus on getting good quality sleep every night- 7-9 hours -I'm glad to hear that sleep is going well Please let me know if you have any questions. With gratitude, Natacha Cabezas, MS, RDN, LDN [email or web address] Not available 01/07/2025 12:53:10 f/u 1 month [email or web address] Not available 12:14:09 Reason for Referral None Reported. Results Created Date Observation Date Name Description Value Unit Range Abnormal Flag Note LastModifiedBy Organization Detail LastModifiedTime 10/27/19 25 11/13/2024 THYRO ID PEROX IDASE AND THYRO GLOBU JIMMY ANTIB ODIES thyroglobuli n antibodies <1 IU/mL < or = 1 normal Not Available [facility] - Manual Order Only [address], [place], [address], 11/13/2024 13:43:37 10/27/19 25 11/13/2024 THYRO ID PEROX IDASE AND THYRO GLOBU JIMMY ANTIB ODIES thyroid peroxidase antibodies 49 IU/mL <[address] [facility] - Manual Order Only [address], [place], [address], 11/13/2024 13:43:37 10/27/1911/13/2024 CARDI O IQ(R) INSUL IN RESIS TANCE PANEL WITH SCORE insulin, intact, lc/MS/MS 17 uIU/m L < or = 16 high Insul in chandana ntrat ion can be conve rted to pmol/ L by apply ing the conve rsion facto r: 1 uIU/m L = 5.97 pmol/ L For addit ional infor liborio roca e refer to http: //ayan montoya.Jalil stDia gnost ics.c om/fa q/FAQ 170 (This link is being provi ded for infor matio nal/e ducat ional purpo ses only. ) This test was devel oped and its maged tical perfo rmanc e deborah cteri stics have been deter mined by [employer]. It has not been clear ed or appro alanna by the FDA. This assay has been valid ated pursu ant to the CLIA regul ation s and is used for clini duane purpo ses. Not Available [facility] - Manual Order Only [address], [place], [address], 11/13/2024 13:43:38 10/27/19 25 11/13/2024 CARDI O IQ(R) INSUL IN RESIS TANCE PANEL WITH SCORE C-peptide, lc/MS/MS 2.61 NG/mL 0.68-2 .16 high Not Available [facility] - Manual Order Only [address], [place], [address], 11/13/2024 13:43:38 10/27/19 25 11/13/2024 CARDI O IQ(R) INSUL IN RESIS TANCE PANEL WITH SCORE insulin resistance score 85 < or = 66 high Insul in Sensi tive < 33; Impai red Insul in Sensi tivit y 33-66 ; Insul in Resis tant >66 A score below 33 is optim al. The insul in resis tance score corre lates with stead y state gluco se level s achie alanna durin g an insul in suppr essio n test, a stand logan resea [facility] test for insul in resis tance . The score is based on insul in and C-pep tide resul ts (Clayton si F, Deana man D, Sravan CH, et al. Insul in resis tance proba bilit y score s for appar ently healt hy indiv idual s. J Endoc r Soc. 2018; 2(9): 1050- 1057) . For addit ional infor liborio roca refer to http: //ayan montoya.Que stDia gnost ics.c om/fa q/FAQ 205 (This link is being provi ded for infor matio nal/e ducat ional purpo ses only. ) This test was devel bert and its maged tical perfo rmanc e deborah cteri stics have been deter mined by [employer]. It has not been clear ed or appro alanna by the FDA. This assay has been valid ated pursu ant to the CLIA regul ation s and is used for clini duane purpo ses. Not Available [facility] - Manual Order Only [address], [place], [address], 11/13/2024 13:43:38 10/27/19 25 11/13/2024 ADVAN RISHI LIPID PNL W/INF LAMMA TION, CARDI O IQ(R) cholesterol, total 187 mg/dL <200 Not Available [facility] - Manual Order Only [address], [place], [address], 11/13/2024 13:43:38 10/27/19 25 11/13/2024 ADVAN RISHI LIPID PNL W/INF LAMMA TION, CARDI O IQ(R) HDL cholesterol 51 mg/dL >49 Not Available [facility] - Manual Order Only [address], [place], [address], 11/13/2024 13:43:38 10/27/19 25 11/13/2024 ADVAN RISHI LIPID PNL W/INF LAMMA TION, CARDI O IQ(R) triglyceride s 68 mg/dL <150 Not Available [facility] - Manual Order Only [address], [place], [address], 11/13/2024 13:43:38 10/27/19 25 11/13/2024 ADVAN RISHI LIPID PNL W/INF LAMMA TION, CARDI O IQ(R) LDL-choleste rol 120 mg/dL _(duane c) <100 high Den able range <100 mg/dL for prima ry preve ntion ; <70 mg/dL for patie nts with CHD or diabe tic patie nts with >= 2 CHD risk facto rs. LDL-C is now calcu lated using the [facility] alea calcu latio n, which is a valid ated novel metho d provi ding yary r accur acy than the Fried suleiman equat ion in the estim ation of LDL-C . Jenny montoya SS et al. JUAN JOSÉ. 2013; 310(1 9): 2060- 2067 (http ://ed Tweet Category on.iRates. com/f aq/FA Q164) LDL-C is now calcu lated using the [facility] alea calcu latio n, which is a valid ated novel metho d provi ding yary r accur acy than the Fried suleiman equat ion in the estim ation of LDL-C . Jenny LEWIS et al. JUAN JOSÉ. 2013; 310(1 9): 2060- 2067 (http ://ed ati on.iRates. com/f aq/FA Q164) Not Available [facility] - Manual Order Only [address], [place], [address], 11/13/2024 13:43:38 10/27/19 25 11/13/2024 ADVAN RISHI LIPID PNL W/INF LAMMA TION, CARDI O IQ(R) chol/HDLC ratio 3.7 calc <5.0 Not Available [facility] - Manual Order Only [address], [place], [address], 11/13/2024 13:43:38 10/27/19 25 11/13/2024 ADVAN RISHI LIPID PNL W/INF LAMMA TION, CARDI O IQ(R) non HDL cholesterol 136 mg/dL _(duane c) <130 high For patie nts with diabe grisel plus 1 major ASCVD risk facto r, treat ing to a non-H DL-C goal of <100 mg/dL (LDL- C of <70 mg/dL ) is consi dered a thera peuti c optio n. For patie nts with diabe grisel plus 1 major ASCVD risk facto r, treat ing to a non-H DL-C goal of <100 mg/dL (LDL- C of <70 mg/dL ) is consi jenniferd a michaela morgan barajas optio n. Not Available [facility] - Manual Order Only [address], [place], [address], 11/13/2024 13:43:38 10/27/19 25 11/13/2024 ADVAN RISHI LIPID PNL W/INF LAMMA TION, CARDI O IQ(R) LDL particle number 1380 nmol/ L <1138 high Relat marley Risk: Optim al <1138 ; Moder ate 1138- 1409; High >1409 . Male and Femal e Refer ence Range : 1016 to 2185 nmol/ L. Not Available [facility] - Manual Order Only [address], [place], [address], 11/13/2024 13:43:38 10/27/1911/13/2024 ADVAN RISHI LIPID PNL W/INF LAMMA TION, CARDI O IQ(R) LDL small 215 nmol/ L <142 high Relat marley Risk: Optim al <142; Moder ate 142-2 19; High >219. Male Refer ence Range : 123 to 441 nmol/ L; Femal e Refer ence Range : 115 to 386 nmol/ L. Not Available [facility] Only [address], [place], [address], 11/13/2024 13:43:38 10/27/1911/13/2024 ADVAN RISHI LIPID PNL W/INF LAMMA TION, CARDI O IQ(R) LDL medium 311 nmol/ L <215 high Relat marley Risk: Optim al <215; Moder ate 215-3 01; High >301. Male Refer ence Range : 167 to 485 nmol/ L; Femal e Refer ence Range : 121 to 397 nmol/ L. Not Available [facility] - Manual Order Only [address], [place], [address], 11/13/2024 13:43:38 10/27/19 25 11/13/2024 ADVAN RISHI LIPID PNL W/INF LAMMA TION, CARDI O IQ(R) HDL large 5745 nmol/ L >6729 low Relat marley Risk: Optim al >6729 ; Moder ate 6729- 5353; High <5353 . Male Refer ence Range : 4334 to 29883 nmol/ L; Femal e Refer ence Range : 5038 to 98550 nmol/ L. Not Available [facility] - Manual Order Only [address], [place], [address], 11/13/2024 13:43:38 10/27/19 25 11/13/2024 ADVAN RISHI LIPID PNL W/INF LAMMA TION, CARDI O IQ(R) LDL pattern A patte rn A Relat marley Risk: Optim al Patte rn A; High Patte rn B. Refer ence Range : Patte rn A. Not Available [facility] - Manual Order Only [address], [place], [address], 11/13/2024 13:43:38 10/27/19 25 11/13/2024 ADVAN RISHI LIPID PNL W/INF LAMMA TION, CARDI O IQ(R) LDL peak size 220.5 angst rom >222.9 low This test was devel opjesus and its maged tical perfo rmanc e deborah cteri stics have been deter mined by [facility] [place] [facility]. It has not been clear ed or appro alanna by the U.S. Food and Drug Admin istra tion. This assay has been valid ated pursu ant to the CLIA regul ation s and is used for clini duane purpo ses. Relat marley Risk: Optim al >222. 9; Moder ate 222.9 -217. 4; High <217. 4. Male and Femal e Refer ence Range : 216 to 234.3 Angst rom. Adult cardi ovasc ular event risk categ ory cut point s (opti mal, moder ate, high) are based on an adult [place]. refer ence popul ation plus two large cohor t study popul ation s. Assoc iatio n betwe en lipop rotei n subfr actio ns and cardi ovasc ular event s is based on Rossi baca et al. ATVB. 2009; 29:19 75. For addit ional infor marck n, liborio e refer to http: //[facility] catmichelle n.Que stDia gnost ics.c om/fa q/FAQ 134 (This link is being provi ded for infor marck nal/e ducat ional purpo ses only. ) Not Available [facility] - Manual Order Only [address], [place], [address], 11/13/2024 13:43:38 10/27/19 25 11/13/2024 ADVAN RISHI LIPID PNL W/INF LAMMA TION, CARDI O IQ(R) apolipoprote in B 102 mg/dL <90 high Refer ence Range <90 Risk Categ ory: Optim al <90 Moder ate 90-12 9 High > or = 130 A den able treat ment targe t may be <80 mg/dL or lower depen rita on the risk categ ory of the patie nt inclu ding patie nts on lipid lower ing thera pies, patie nts with ASCVD , diabe grisel with >1 risk facto rs, Stage 3 or great er CKD with album inuri a, or heter ozygo us famil ial hyper shelia stero lemia . ApoB relat marley risk categ ory cut point s are based on AACE/ JOHN and ACC/A KULKARNI recom menda tions (Beny francisco SM, et al. 2019. doi:1 0.101 6/j.j acc.2 018.1 1.002 ; Earnestine barker Y, et al. 2020. doi:1 0.415 8/CS- 2019- 8310) . Not Available [facility] - Manual Order Only [address], [place], [address], 11/13/2024 13:43:38 10/27/19 25 11/13/2024 ADVAN RISHI LIPID PNL W/INF LAMMA TION, CARDI O IQ(R) lipoprotein (A) <10 nmol/ L <75 Risk: Optim al <75 nmol/ L; Moder ate 75-12 5 nmol/ L; High >125 nmol/ L. Cardi ovasc ular event risk categ ory cut point s (opti mal, moder ate, high) are based on Jack Tam. [facility] 2017; 69:69 2-711 . Not Available [facility] - Manual Order Only [address], [place], [address], 11/13/2024 13:43:38 10/27/1911/13/2024 ADVAN RISHI LIPID PNL W/INF LAMMA TION, CARDI O IQ(R) hs CRP 4.9 mg/L <1.0 high Refer ence Range : Optim al <1.0 mg/L, accor ding to Gabriel HANSON et al. Endoc r Pract .2017 ;23(S uppl 2):1- 87. The AHA/C DC Guide lines recom mend hs-CR P range s for ident ifyin g Relat marley Cardi ovasc ular Risk in patie nts ages >17 years : <1.0 mg/L Lower Relat marley Cardi ovasc ular Risk; 1.0-3 .0 mg/L Norris ge Relat marley Cardi ovasc ular Risk; 3.1-1 0.0 mg/L Highe r Relat marley Cardi ovasc ular Risk. If resul t is betwe en 3.1 and 10.0 mg/L, consi neal retes ting in 1-2 weeks to exclu de a benig n trans ient eleva tion secon jim to infec tion or infla mmati on from the basel ine CRP value . Persi stent eleva tions of >10.0 mg/L upon retes ting may be assoc iated with infec tion and infla mmati on. The AHA/C DC recom menda tions are based on Pearanel on TA, Mensa h GA, Deirdre chahalr RW, et al. Marke rs of infla mmati on and cardi ovasc ular disea se: appli catio n to clini duane and publi c healt h pract ice: A state ment for healt hcare profe ssion als from the [facility] rs for Disea se Contr ol and Preve ntion and the Ameri can Heart Assoc iatio n. Circu latio n 2003; 107(3 ): 499-5 11. For ages >17 Years : hs-CR P mg/L Risk Accor ding to AHA/C DC Guide lines <1.0 Lower relat marley cardi ovasc ular risk. 1.0-3 .0 Norris ge relat marley cardi ovasc ular risk. 3.1-1 0.0 Highe r relat marley cardi ovasc ular risk. Consi neal retes ting in 1 to 2 weeks to exclu de a benig n trans ient eleva tion in the basel ine CRP value secon jim to infec tion or infla mmati on. >10.0 Persi stent eleva tion, upon retes ting, may be assoc iated with infec tion and infla mmati on. Pears on TA, Mensa h GA, Deirdre chahalr RW, et al. Marke rs of infla mmati on and cardi ovasc ular disea se: appli catio n to clini duane and publi c healt h pract ice: A state ment for healt hcare profe ssion als from the [facility] for Disea se Contr ol and Preve ntion and the Ameri can Heart Assoc iatio n. Circu latio n 2003; 107(3 ): 499-5 11. Not Available [facility] - Manual Order Only [address] [facility] [address], [place], [address], 11/13/2024 13:43:38 10/27/19 25 11/13/2024 ADVAN RISHI LIPID PNL W/INF LAMMA TION, CARDI O IQ(R) LP pla2 activity 112 nmol/ min/m L <124 Relat marley Risk: Optim al <=123 nmol/ min/m L; High >123 nmol/ min/m L. This test was devel oped and its maged tical perfo rmanc e deborah cteri stics have been deter mined by [facility]. It has not been clear ed or appro alanna by the FDA. This assay has been valid ated pursu ant to the CLIA regul ation s and is used for clini duane purpo ses. See Note 1 Not Available [facility] - Manual Order Only [address], [place], [address], 11/13/2024 13:43:38 10/27/1911/13/2024 TESTO STERO NE, FREE, BIOAV AILAB LE AND TOTAL , MS testosterone , total, MS 21 NG/dL 2-45 For addit ional infor liborio roca e refer to http: //ayan boyd stdia gnost ics.c om/fa q/ Total Testo stero neLCM [facility] Q165 (This link is being provi ded for infor marck wiley/ educa lilian l purpo ses only. ) This test was michael noel and its maged tical perfo rmanc e deborah cteri stics have been deter mined by [employer] Mikey chapin [place], [place]. It has not been clear ed or appro alanna by the U.S. Food and Drug Admin istra tion. This assay has been valid ated pursu ant to the CLIA regul ation s and is used for clini duane purpo ses. Not Available [facility] - Manual Order Only [address], [place], [address], 11/13/2024 13:43:39 10/27/19 25 11/13/2024 TESTO STERO NE, FREE, BIOAV AILAB LE AND TOTAL , MS testosterone , free 1.7 pg/mL 0.2-5. 0 Not Available [facility] - Manual Order Only [address], [place], [address], 11/13/2024 13:43:39 10/27/19 25 11/13/2024 TESTO STERO NE, FREE, BIOAV AILAB LE AND TOTAL , MS testosterone ,bioavailabl e 3.8 NG/dL 0.5-8. 5 Not Available [facility] - Manual Order Only [address], [place], [address], 11/13/2024 13:43:39 10/27/19 25 11/13/2024 TESTO STERO NE, FREE, BIOAV AILAB LE AND TOTAL , MS sex hormone binding globulin 50 nmol/ L 17-124 Not Available [facility] - Manual Order Only [address], [place], [address], 11/13/2024 13:43:39 10/27/19 25 11/13/2024 TESTO STERO NE, FREE, BIOAV AILAB LE AND TOTAL , MS albumin 4.8 g/dL 3.6-5. 1 Not Available [facility] - Manual Order Only [address], [place], [address], 11/13/2024 13:43:39 10/27/19 25 11/13/2024 GGT GGT 15 U/L 3-50 normal Not Available [facility] - Manual Order Only [address], [place], [address], 11/13/2024 13:43:39 10/27/19 25 11/13/2024 URIC ACID uric acid 4.1 mg/dL 2.5-7. 0 normal Thera morgan moses t for gout patie nts: <6.0 mg/dL Not Available [facility] - Manual Order Only [address], [place], [address], 11/13/2024 13:43:40 10/27/19 25 11/13/2024 COMPR EHENS MARLEY METAB OLIC PANEL glucose 105 mg/dL 65-99 high Fasti ng refer ence inter jovany For someo ne witho ut known diabe grisel, a gluco se value betwe en 100 and 125 mg/dL is consi stent with predi abete s and shoul d be confi rmed with a follo w-up test. Not Available [facility] - Manual Order Only [address], [place], [address], 11/13/2024 13:43:40 10/27/19 25 11/13/2024 COMPR EHENS MARLEY METAB OLIC PANEL urea nitrogen (BUN) 16 mg/dL 7-25 normal Not Available [facility] Manual Order Only [address], [place], [address], 11/13/2024 13:43:40 10/27/19 25 11/13/2024 COMPR EHENS MARLEY METAB OLIC PANEL creatinine 0.71 mg/dL 0.50-0 .97 normal Not Available [facility] - Manual Order Only [address], [place], [address], 11/13/2024 13:43:40 10/27/19 25 11/13/2024 COMPR EHENS MARLEY METAB OLIC PANEL eGFR 111 mL/mi n/1.7 3m2 > or = 60 normal Not Available [facility] - Manual Order Only [address], [place], [address], 11/13/2024 13:43:40 10/27/19 25 11/13/2024 COMPR EHENS MARLEY METAB OLIC PANEL BUN/creatini ne ratio SEE NOTE: (calc ) 6-22 Not Repor elfego: BUN and Creat inine are withi n refer ence range . Not Available [facility] - Manual Order Only [address], [place], [address], 11/13/2024 13:43:40 10/27/19 25 11/13/2024 COMPR EHENS MARLEY METAB OLIC PANEL sodium 136 mmol/ L 135-14 6 normal Not Available [facility] - Manual Order Only [address], [place], [address], 11/13/2024 13:43:40 10/27/19 25 11/13/2024 COMPR EHENS MARLEY METAB OLIC PANEL potassium 4.3 mmol/ L 3.5-5. 3 normal Not Available [facility] - Manual Order Only [address], [place], [address], 11/13/2024 13:43:40 10/27/19 25 11/13/2024 COMPR EHENS MARLEY METAB OLIC PANEL chloride 105 mmol/ L 98-110 normal Not Available [facility] - Manual Order Only [address], [place], [address], 11/13/2024 13:43:40 10/27/19 25 11/13/2024 COMPR EHENS MARLEY METAB OLIC PANEL carbon dioxide 21 mmol/ L 20-32 normal Not Available [facility] - Manual Order Only [address], [place], [address], 11/13/2024 13:43:40 10/27/19 25 11/13/2024 COMPR EHENS MARLEY METAB OLIC PANEL calcium 9.2 mg/dL 8.6-10 .2 normal Not Available [facility] - Manual Order Only [address], [place], [address], 11/13/2024 13:43:40 10/27/19 25 11/13/2024 COMPR EHENS MARLEY METAB OLIC PANEL protein, total 7.3 g/dL 6.1-8. 1 normal Not Available [facility] - Manual Order Only [address], [place], [address], 11/13/2024 13:43:40 10/27/19 25 11/13/2024 COMPR EHENS MARLEY METAB OLIC PANEL albumin 4.9 g/dL 3.6-5. 1 normal Not Available [facility] - Manual Order Only [address], [place], [address], 11/13/2024 13:43:40 10/27/19 25 11/13/2024 COMPR EHENS MARLEY METAB OLIC PANEL globulin 2.4 g/dL_ (calc ) 1.9-3. 7 normal Not Available [facility] - Manual Order Only [address], [place], [address], 11/13/2024 13:43:40 10/27/19 25 11/13/2024 COMPR EHENS MARLEY METAB OLIC PANEL albumin/glob ulin ratio 2.0 (calc ) 1.0-2. 5 normal Not Available [facility] - Manual Order Only [address], [place], [address], 11/13/2024 13:43:40 10/27/19 25 11/13/2024 COMPR EHENS MARLEY METAB OLIC PANEL bilirubin, total 0.3 mg/dL 0.2-1. 2 normal Not Available [facility] - Manual Order Only [address], [place], [address], 11/13/2024 13:43:40 10/27/19 25 11/13/2024 COMPR EHENS MARLEY METAB OLIC PANEL alkaline phosphatase 76 U/L 31-125 normal Not Available [facility] [address], [place], [address], 11/13/2024 13:43:40 10/27/19 25 11/13/2024 COMPR EHENS MARLEY METAB OLIC PANEL AST 14 U/L 10-30 normal Not Available [facility] - Manual Order Only [address], [place], [address], 11/13/2024 13:43:40 10/27/19 25 11/13/2024 COMPR EHENS MARLEY METAB OLIC PANEL ALT 14 U/L 6-29 normal Not Available [facility] - Manual Order Only [address], [place], [address], 11/13/2024 13:43:40 10/27/19 25 11/13/2024 MAGNE SIUM, RBC magnesium, RBC 6.1 mg/dL 4.0-6. 4 This test was devel oped and its maged tical perfo rmanc e deborah cteri stics have been deter mined by [employer] [facility] [place] It has not been clear ed or appro alanna by the U.S. Food and Drug Admin istra tion. This assay has been valid ated pursu ant to the CLIA regul ation s and is used for clini duane purpo ses. Not Available [facility] - Manual Order Only [address], [place], [address], 11/13/2024 13:43:41 10/27/19 25 11/13/2024 VITAM IN A (RETI NOL) vitamin A (retinol) 39 mcg/d L 38-98 Vitam in suppl ement ation withi n 24 hours prior to blood draw may affec t the accur acy of the resul ts. This test was devel oped and its maged tical perfo rmanc e deborah cteri stics have been deter mined by [employer] [place]. It has not been clear ed or appro alanna by the U.S. Food and Drug Admin istra tion. This assay has been valid ated pursu ant to the CLIA regul ation s and is used for clini duane purpo ses. Not Available [facility] Manual Order Only [address], [place], [address], 11/13/2024 13:43:41 10/27/19 25 11/13/2024 VITAM IN B6, PLASM A vitamin B6, plasma 56.3 NG/mL 2.1-21 .7 high Vitam in suppl ement ation withi n 24 hours prior to blood draw may affec t the accur acy of the resul ts. This test was devel oped and its maged tical perfo rmanc e deborah cteri stics have been deter mined by [employer] [facility], [place]. It has not been clear ed or appro alanna by the U.S. Food and Drug Admin istra tion. This assay has been valid ated pursu ant to the CLIA regul ation s and is used for clini duane purpo ses. Not Available [facility] - Manual Order Only [address], [place], [address], 11/13/2024 13:43:42 10/27/19 25 11/13/2024 NICK Dany RANDO M URINE iodine, random urine 176 mcg/L 34-523 This test was devel oped and its maged tical perfo rmanc e deborah cteri stics have been deter mined by [facility] Mikey chapin [place], [place]. It has not been clear ed or appro alanna by the U.S. Food and Drug Admin istra tion. This assay has been valid ated pursu ant to the CLIA regul ation s and is used for clini duane purpo ses. Not Available [facility] - Manual Order Only [address], [place], [address], 11/13/2024 13:43:42 10/27/19 25 11/13/2024 LEPTI N leptin 10.0 NG/mL Refer ence Range s for Lepti n: Adult Lean Subje cts (18-7 1 years ) with BMI range of 18-25 : Males : 0.3-1 3.4 ng/mL Femal es: 4.7-2 3.7 ng/mL Adult Subje cts (19-6 0 years ) with BMI range of 25-30 : Males : 1.8-1 9.9 ng/mL Femal es: 8.0-3 8.9 ng/mL Pedia tric Refer ence Range s for Lepti n: 5-9.9 years : 0.6-1 6.8 ng/mL 10-13 .9 years : 1.4-1 6.5 ng/mL 14-17 .9 years : 0.6-2 4.9 ng/mL This test was devel oped and its maged tical perfo rmanc e deborah cteri stics have been deter mined by [facility]. It has not been clear ed or appro alanna by the FDA. This assay has been valid ated pursu ant to the CLIA regul ation s and is used for clini duane purpo ses. Not Available [facility] - Manual Order Only [address], [place], [address], 11/13/2024 13:43:43 10/27/19 25 11/13/2024 CBC (INCL UDES DIFF/ PLT) white blood cell count 6.7 thous and/u L 3.8-10 .8 normal Not Available [facility] - Manual Order Only [address], [place], [address], 11/13/2024 13:43:43 10/27/19 25 11/13/2024 CBC (INCL UDES DIFF/ PLT) red blood cell count 4.46 kristy on/uL 3.80-5 .10 normal Not Available [facility] - Manual Order Only [address], [place], [address], 11/13/2024 13:43:43 10/27/19 25 11/13/2024 CBC (INCL UDES DIFF/ PLT) hemoglobin 13.3 g/dL 11.7-1 5.5 normal Not Available [facility] - Manual Order Only [address], [place], [address], 11/13/2024 13:43:43 10/27/1911/13/2024 CBC (INCL UDES DIFF/ PLT) hematocrit 40.6 % 35.0-4 5.0 normal Not Available [facility] - Manual Order Only [address], [place], [address], 11/13/2024 13:43:43 10/27/19 25 11/13/2024 CBC (INCL UDES DIFF/ PLT) MCV 91.0 fL 80.0-1 00.0 normal Not Available [facility] - Manual Order Only [address], [place], [address], 11/13/2024 13:43:43 10/27/19 25 11/13/2024 CBC (INCL UDES DIFF/ PLT) MCH 29.8 pg 27.0-3 3.0 normal Not Available [facility] Order Only [address], [place], [address], 11/13/2024 13:43:43 10/27/19 25 11/13/2024 CBC (INCL UDES DIFF/ PLT) MCHC 32.8 g/dL 32.0-3 6.0 normal For adult s, a sligh t decre ase in the calcu lated MCHC value (in the range of 30 to 32 g/dL) is most likel y not clini gricelda signi fican t; say er, it shoul d be inter prete d with cauti on in corre latio n with other red cell deidra eters and the patie nt's clini duane condi tion. Not Available [facility] - Manual Order Only [address], [place], [address], 11/13/2024 13:43:43 10/27/19 25 11/13/2024 CBC (INCL UDES DIFF/ PLT) RDW 13.0 % 11.0-1 5.0 normal Not Available [facility] - Manual Order Only [address], [place], [address], 11/13/2024 13:43:43 10/27/19 25 11/13/2024 CBC (INCL UDES DIFF/ PLT) platelet count 114 thous and/u L 140-40 0 low Not Available [facility] - Manual Order Only [address], [place], [address], 11/13/2024 13:43:43 10/27/19 25 11/13/2024 CBC (INCL UDES DIFF/ PLT) MPV 13.0 fL 7.5-12 .5 high Not Available [facility] Order Only [address], [place], [address], 11/13/2024 13:43:43 10/27/19 25 11/13/2024 CBC (INCL UDES DIFF/ PLT) absolute neutrophils 4013 cells /uL 1500-7 800 normal Not Available [facility] - Manual Order Only [address], [place], [address], 11/13/2024 13:43:43 10/27/19 25 11/13/2024 CBC (INCL UDES DIFF/ PLT) absolute lymphocytes 2137 cells /uL 850-39 00 normal Not Available [facility] - Manual Order Only [address], [place], [address], 11/13/2024 13:43:43 10/27/19 25 11/13/2024 CBC (INCL UDES DIFF/ PLT) absolute monocytes 369 cells /uL 200-95 0 normal Not Available [facility] - Manual Order Only [address], [place], [address], 11/13/2024 13:43:43 10/27/19 25 11/13/2024 CBC (INCL UDES DIFF/ PLT) absolute eosinophils 121 cells /uL 15-500 normal Not Available [facility] - Manual Order Only [address], [place], [address], 11/13/2024 13:43:43 10/27/19 25 11/13/2024 CBC (INCL UDES DIFF/ PLT) absolute basophils 60 cells /uL 0-200 normal Not Available [facility] - Manual Order Only [address], [place], [address], 11/13/2024 13:43:43 10/27/19 25 11/13/2024 CBC (INCL UDES DIFF/ PLT) neutrophils 59.9 % normal Not Available [facility] - Manual Order Only [address], [place], [address], 11/13/2024 13:43:43 10/27/19 25 11/13/2024 CBC (INCL UDES DIFF/ PLT) lymphocytes 31.9 % normal Not Available [facility] - Manual Order Only [address], [place], [address], 11/13/2024 13:43:43 10/27/19 25 11/13/2024 CBC (INCL UDES DIFF/ PLT) monocytes 5.5 % normal Not Available [facility] - Manual Order Only [address], [place], [address], 11/13/2024 13:43:43 10/27/19 25 11/13/2024 CBC (INCL UDES DIFF/ PLT) eosinophils 1.8 % normal Not Available [facility] - Manual Order Only [address], [place], [address], 11/13/2024 13:43:43 10/27/19 25 11/13/2024 CBC (INCL UDES DIFF/ PLT) basophils 0.9 % normal Not Available [facility] - Manual Order Only [address], [place], [address], 11/13/2024 13:43:43 10/27/19 25 11/13/2024 GLIAD IN (DEAM IDATE D) AB (IGG, IGA) gliadin (deamidated) Ab (IgA) 3.3 U/mL normal Value Inter preta tion ----- ----- ----- ---- <15.0 Antib mona not detec elfego > or = 15.0 Antib mona detec elfego Not Available [facility] - Manual Order Only [address], [place], [address], 11/13/2024 13:43:44 10/27/19 25 11/13/2024 GLIAD IN (DEAM IDATE D) AB (IGG, IGA) gliadin (deamidated) Ab (IgG) 6.6 U/mL normal Value Inter preta tion ----- ----- ----- ---- <15.0 Antib mona not detec elfego > or = 15.0 Antib mona detec elfego Not Available [facility] - Manual Order Only [address], [place], [address], 11/13/2024 13:43:44 10/27/1911/13/2024 TISSU E TRANS GLUTA ROSEANNE E ANTIB MONA, IGG,I GA tissue transglutami nase Ab, IgG 2.9 U/mL normal Value Inter preta tion ----- ----- ----- ---- <15.0 Antib mona not detec elfego > or = 15.0 Antib mona detec elfego Not Available [facility] - Manual Order Only [address], [place], [address], 11/13/2024 13:43:44 10/27/19 25 11/13/2024 TISSU E TRANS GLUTA ROSEANNE E ANTIB MONA, IGG,I GA tissue transglutami nase Ab, IgA 2.6 U/mL normal Value Inter preta tion ----- ----- ----- ---- <15.0 Antib mona not detec elfego > or = 15.0 Antib mona detec elfego Not Available [facility] - Manual Order Only [address], [place], [address], 11/13/2024 13:43:44 10/27/19 25 11/13/2024 IMMUN OGLOB ULIN A immunoglobul in A 146 mg/dL 47-310 normal Not Available [facility] - Manual Order Only [address], [place], [address], 11/13/2024 13:43:45 10/27/19 25 11/13/2024 CARNI ROSEANNA carnitine, total 52 umol/ L 25-58 Not Available [facility] - Manual Order Only [address], [place], [address], 11/13/2024 13:43:45 10/27/19 25 11/13/2024 CARNI ROSEANNA carnitine, free 41 umol/ L 19-48 Not Available [facility] - Manual Order Only [address], [place], [address], 11/13/2024 13:43:45 10/27/19 25 11/13/2024 CARNI ROSEANNA carnitine, esters 11 umol/ L 4-13 Not Available [facility] - Manual Order Only [address], [place], [address], 11/13/2024 13:43:45 10/27/19 25 11/13/2024 CARNI ROSEANNA esterified/f ree ratio 0.27 umol/ L 0.13-0 .42 This serum carni roseanna profi le is l. Clini duane corre latio n is recom kristan d. Inter preta tion revie wed by: rErol rose MD, [facility] .- IF THE ORDER ING/T REATI NG PHYSI AIYANA HAS ANY [facility] I[facility] REGAR RITA VICK RESUL LIBORIO SUAREZ CONTArtemio CT [facility] BIOCH EMICA L [facility] ICS LABOR [employer] AT [phone] ext [phone] or ext [phone] AND ASK TO SPEAK WITH THE LABOR [employer] DIREC TOR TAPER/FINISHER. FOR GENER AL [facility] I[facility] ABOUT [facility] IC TESTI LIBORIO ODOM CALL THE GENE INFO LINE AT [phone] .- Carni roseanna, an amino acid synth esize d in anima l tissu es from lysin e and methi onine by an iron- ascor samy depen dent pathw ay, funct ions as a stalin er of fatty acids acros s cell membr anes. Serum carni roseanna maged sis is usefu l in the diagn osis and monit oring of patie nts with carni roseanna defic iency (eith er prima ry or secon jim) . Prima ry syste ana carni roseanna defic iency (CDSP ), also known as carni roseanna uptak e defec t (CUD) is an autos omal reces sive disor neal that affec ts carni roseanna uptak e by cells and tissu es throu gh a defec t in the plasm a membr ane carni roseanna trans porte r (OCTN 2, encod ed by the SLC22 A5 gene locat ed on chrom osome 5q31. 1). The incid ence of CDSP is appro ximat cookie 1 in 50,00 0. The clini duane prese ntati on and age of onset of CDSP can vary, but typic al findi ngs inclu de hypok etoti c hypog lycem ia, hepat omega ly, cardi omyop athy, skele yonny myopa thy, and weakn ess. If diagn osed early , treat ment with carni roseanna can rever se many of the clini duane sympt oms. Secon jim carni roseanna defic iency occur s in some disea se state s, in patie nts on carni roseanna- poor diets , or secon jim to medic ation s inclu ding valpr oic acid. It is also found in a numbe r of metab olic disor ders affec ting fatty acid and organ ic acid metab olism . In these disor ders, carni roseanna compl exes with the accum ulate d subst rate of the block ed metab olic step, and the resul ting acylc arnit mariaelena are excre elfego in the urine , leadi ng to a deple tion of carni roseanna in the patie nt. [employer] elfego free carni roseanna can occur in CPT-1 defic iency or secon jim to dieta ry carni roseanna suppl ement ation , while incre ased anna ified carni roseanna may indic ate an under lying metab olic defec t. This test is not inten ded to diagn ose these disor ders. All resul ts shoul d be inter prete d in the rosalia xt of clini duane findi ngs, relev ant histo ry, and other labor atory data. This test was devel oped and its maged tical perfo rmanc e deborah cteri stics have been deter mined by [employer]. It has not been clear ed or appro alanna by the FDA. This assay has been valid ated pursu ant to the CLIA regul ation s and is used for clini duane purpo ses. Not Available [facility] - Manual Order Only [address], [place], [address], 11/13/2024 13:43:45 10/27/19 25 11/13/2024 PREGN ENOLO NE, LC/MS pregnenolone , lc/MS 92 NG/dL 22-237 This test was devel oped and its maged tical perfo rmanc e deborah cteri stics have been deter mined by [employer]. It has not been clear ed or appro alanna by the FDA. This assay has been valid ated pursu ant to the CLIA regul ation s and is used for clini duane purpo ses. Not Available [facility] - Manual Order Only [address], [place], [address], 11/13/2024 13:43:46 10/27/19 25 11/13/2024 DHEA SULFA TE DHEA sulfate 158 mcg/d L 19-237 normal Not Available [facility] - Manual Order Only [address], [place], [address], 11/13/2024 13:43:46 10/27/19 25 11/13/2024 MIGUEL TIN ferritin 37 NG/mL 16-154 normal Not Available [facility] - Manual Order Only [address], [place], [address], 11/13/2024 13:43:47 10/27/19 25 11/13/2024 FOLAT E, SERUM folate, serum 13.8 NG/mL normal Refer ence Range Low: <3.4 Borde rline : 3.4-5 .4 l: >5.4 Not Available [facility] - Manual Order Only [address], [place], [address], 11/13/2024 13:43:47 10/27/19 25 11/13/2024 PROGE STERO NE progesterone 13.0 NG/mL normal Refer ence Range s Femal e Folli cular Phase < 1.0 Lutea l Phase 2.6-2 1.5 Post menop ausal < 0.5 Pregn berhane 1st Trime ster 4.1-3 4.0 2nd Trime ster 24.0- 76.0 3rd Trime ster 52.0- 302.0 Not Available [facility] Manual Order Only [address], [place], [address], 11/13/2024 13:43:48 10/27/19 25 11/13/2024 T4, FREE T4, free 1.0 NG/dL 0.8-1. 8 normal Not Available [facility] - Manual Order Only [address], [place], [address], 11/13/2024 13:43:48 10/27/1911/13/2024 TSH TSH 1.67 mIU/L normal Refer ence Range > or = 20 Years 0.40- 4.50 Pregn berhane Range s First trime ster 0.26- 2.66 Secon d trime ster 0.55- 2.73 Third trime ster 0.43- 2.91 Not Available [facility] - Manual Order Only [address], [place], [address], 11/13/2024 13:43:49 10/27/19 25 11/13/2024 VITAM IN B12 vitamin B12 1365 pg/mL 200-11 00 high Not Available [facility] - Manual Order Only [address], [place], [address], 11/13/2024 13:43:49 10/27/19 25 11/13/2024 ESTRA DIOL estradiol 136 pg/mL normal Refer ence Range Folli cular Phase : 19-14 4 Mid-C ycle: 64-35 7 Lutea l Phase : 56-21 4 Postm enopa usal: < or = 31 Refer ence range estab lishe d on post- puber yonny patie nt popul ation . No pre-p ubert al refer ence range estab lishe d using this assay . For any patie nts for whom low Estra diol level s are antic ipate d (e.g. males , pre-p ubert al child hilda and hypog onada l/pos t-men opaus al femal es), the [facility] Insti tute Estra diol, Ultra sensi tive, LCMSM S assay is recom kristan d (orde r code 66353 ). Pleas e note: patie nts being treat ed with the drug fulve stran t (Fasl odex( R)) have demon strat ed signi fican t inter feren ce in immun oassa y metho ds for estra diol measu remen t. The cross react ivity could lead to false ly eleva elfego estra diol test resul ts leadi ng to an inapp ropri ate clini daune asses sment of estro gen statu s. [facility] order code [id number] -Estr adiol , Ultra sensi tive LC/MS /MS demon strat es negli gible cross react ivity with fulve stran t. Not Available [facility] - Manual Order Only [address], [place], [address], 11/13/2024 13:43:50 10/27/1911/13/2024 T3, FREE T3, free 3.0 pg/mL 2.3-4. 2 normal Not Available [facility] - Manual Order Only [address], [place], [address], 11/13/2024 13:43:50 10/27/19 25 11/13/2024 VITAM IN D,25- OH,TO YONNY,I A vitamin D,25-oh,tota l,ia 42 NG/mL 30-100 normal Vitam in D Statu s 25-OH Vitam in D: Defic iency : <20 ng/mL Insuf ficie ncy: 20 - 29 ng/mL Optim al: > or = 30 ng/mL For 25-OH Vitam in D testi ng on patie nts on D2-mendenhall pplem entat ion and patie nts for whom quant itati on of D2 and D3 fract ions is requi red, the [facility] eD(TM ) 25-OH VIT D, (D2,D 3), LC/MS /MS is recom kristan d: order code [id number] (jose ents >2yrs ). See Note 2 Note 1 This test was devel oped and its maged tical perfo rmanc e deborah cteri stics have been deter mined by [facility]. It has not been clear ed or appro alanna by the FDA. This assay has been valid ated pursu ant to the CLIA regul ation s and is used for clini duane purpo ses. Note 2 For addit ional infor liborio roca e refer to http: [email or web address] om/fa q/FAQ 199 (This link is being provi ded for infor marck wiley/ educa lilian l purpo ses only. ) Not Available [facility] - Manual Order Only [address], [place], [address], 11/13/2024 13:43:51 10/27/19 25 11/13/2024 RIN DA ALBIC ANS AB (IGG, IGA,I GM) C.albicans IgG 0.2 normal Not Available [facility] - Manual Order Only [address], [place], [address], 11/13/2024 13:43:51 10/27/19 25 11/13/2024 RIN DA ALBIC ANS AB (IGG, IGA,I GM) C.albicans IgA 0.5 normal Not Available [facility] - Manual Order Only [address], [place], [address], 11/13/2024 13:43:51 10/27/19 25 11/13/2024 RIN DA ALBIC ANS AB (IGG, IGA,I GM) C.albicans IgM 1.2 high REFER ENCE RANGE : <1.0 INTER PRETI VE CRITE LOWELL: <1.0 Antib mona Not Detec elfego > or = 1.0 Antib mona Detec elfego Syste ana rin diasi s is often deborah cteri zed by marke dly eleva elfego level s of IgG, IgA, and IgM recog nizin g Rin da. Howev er, inter preta tion of Rin da antib mona resul ts is compl icate d by antib mona detec tion in appro ximat cookie 40% of healt hy indiv idual s and up to 70% of patie nts posit marley for other funga l antib odies . Furth er, antib mona respo nses may be blunt ed in immun ocomp romis ed patie nts at risk for syste ana rin diasi s. Rin da antib mona level s shoul d be consi dered withi n the rosalia xt of clini duane findi ngs and resul ts from other relev ant labor atory tests , such as Rin da antig en detec tion and/o r cultu re. This test was devel oped and its maged tical perfo rmanc e deborah cteri stics have been deter mined by [employer]. It has not been clear ed or appro alanna by FDA. This assay has been valid ated pursu ant to the CLIA regul ation s and is used for clini duane purpo ses. Not Available [facility] - Manual Order Only [address] [facility] [address], [place], [address], 11/13/2024 13:43:51 10/27/19 25 11/13/2024 SELEN IUM, RBC selenium, RBC 185 mcg/L 120-30 0 (Note ) This test was devel oped and its maged tical perfo rmanc e deborah cteri stics have been deter mined by [employer]. It has not been clear ed or appro alanna by the FDA. This assay has been valid ated pursu ant to the CLIA regul ation s and is used for clini duane purpo ses. MDF med fusio n [address] [facility] [address] [place] [address] [phone] Milton Horowitz MD, PhD Not Available [facility] - Manual Order Only [address], [place], [address], 11/13/2024 13:43:52 10/27/19 25 11/13/2024 ZINC, RBC zinc, RBC 13.7 mg/L 9.0-14 .7 (Note ) This test was devel oped and its maged tical perfo rmanc e deborah cteri stics have been deter mined by [employer]. It has not been clear ed or appro alanna by the FDA. This assay has been valid ated pursu ant to the CLIA regul ation s and is used for clini duane purpo ses. ABRAM med fusio n [address] [facility] [address] [place] [address] [phone] Milton Horowitz MD, PhD Not Available [facility] - Manual Order Only [address], [place], [address], 11/13/2024 13:43:52 10/27/19 25 11/13/2024 CARDI O IQ(R) HEMOG LOBIN A1C hemoglobin A1C 5.3 % <5.7 For the purpo se of shila browneg for the prese nce of diabe grisel: <5.7% is consi stent with the absen ce of diabe grisel; 5.7-6 .4% is consi stent with incre ased risk for diabe grisel (pred iabet es); >= 6.5% is consi stent with diabe grisel. This assay resul t is consi stent with a decre ased risk of diabe grisel. Curre ntly, no conse nsus exist anel capone use of hemog lobin A1c for diagn osis of diabe grisel in child hilda. Accor rita to Ameri can Diabe grisel Ass[employer] iatio n (ADA) guide lines , hemog lobin A1c <7.0% repre sents optim al contr ol in non-p regna nt diabe tic patie nts. Diffe rent metri cs may apply to speci fic patie nt popul ation s. Stand ards of Medic al Care in Diabe grisel (ADA) . This test was perfo rmed on the Cinthia macario c503 platf orm. Effec tive 024, a carlson e in test platf orms from the [facility] tect to the Cinthia macario c503 may have shift ed HbA1c resul ts angeline red to histo rical resul ts. Based on labor atory valid ation testi ng condu cted at [facility] , the [facility] platf orm relat marley to the [facility] platf orm had an avera ge incre ase in HbA1c value of <=0.3 %. This diffe rence is withi n accep elfego varia bilit y estab lishe d by the Natio nal [employer]co hemog lobin Stand ardiz ation Progr am. Note that not all indiv idual s will have had a shift in their resul ts and direc t angeline rison s betwe en histo rical and curre nt resul ts for testi ng condu cted on diffe rent platf orms is not recom kristan d. Not Available [facility] - Manual Order Only [address], [place], [address], 11/13/2024 13:43:53 10/27/19 25 11/13/2024 CARDI O IQ(R) HOMOC YSTEI NE homocysteine 7.0 umol/ L <11.1 Homoc ystei ne is incre ased by funct ional defic iency of folat e or vitam in B12. Testi ng for methy lmalo guillermina acid diffe renti ates betwe en these defic ienci es. Other cause s of incre ased homoc ystei ne inclu de renal failu re, folat e antag onist s such as metho trexa te and pheny toin, and expos ure to nitro us oxide . Enedina Choi, et al. [facility] Inter n Med. 1999; 131(5 ):331 -9. Homoc ystei ne is incre ased by funct ional defic iency of folat e or vitam in B12. Testi ng for methy lmalo guillermina acid diffe renti ates betwe en these defic ienci es. Other cause s of incre ased homoc ystei ne inclu de renal failu re, folat e antag onist s such as metho trexa te and pheny toin, and expos ure to nitro us oxide . Enedina Choi, et al., [facility] Inter n Med. 1999; 131(5 ):331 -9. Not Available [facility] - Manual Order Only [address], [place], [address], 11/13/2024 13:43:53 10/27/19 25 11/13/2024 OMEGA CHECK (R) epa+dpa+dha 2.8 %_by_ wt >5.4 low This test was michael noel and its maged tical perfo rmanc e deborah cteri stics have been deter mined by [facility] Cardi ometa bolmateo Huang r of Amity lence at [facility]. It has not been clear ed or appro alanna by the U.S. Food and Drug Admin istra tion. This assay has been valid ated pursu ant to the CLIA regul ation s and is used for clini duane purpo ses. Incre asing blood level s of long- chain n-3 fatty acids are assoc iated with a lower risk of sudde n cardi ac (1). Based on the top (75th perce ntile ) and botto m (25th perce ntile ) quart daniel of the [facility] refer ence popul ation , the follo wing relat marley risk categ ories were estab lishe d for [place] Check : A cut-o ff of >=5.5 % by wt defin es a popul ation at optim al relat marley risk, 3.8-5 .4% by wt defin es a popul ation at moder ate relat marley risk, and <=3.7 % by wt defin es a popul ation at high relat marley risk of sudde n cardi ac . The total ity of the scien tific evide nce demon strat es that when consu mptio n of fish oils is limit ed to 3 g/day or less of EPA and DHA, there is no signi fican t risk for incre ased bleed ing time beyon d the l range . A daily dosag e of 1 gram of EPA and DHA lower s the circu latin g trigl yceri jackelyn by about 7-10% withi n 2 to 3 weeks . (Refe rence : 1-Alb tatianna et al. [facility]. 2002; 346: 1113- 1118) . Not Available [facility] - Manual Order Only [address], [place], [address], 11/13/2024 13:43:54 10/27/19 25 11/13/2024 OMEGA CHECK (R) arachidonic acid/epa ratio 20.0 3.7-40 .7 Not Available [facility] - Manual Order Only [address], [place], [address], 11/13/2024 13:43:54 10/27/19 25 11/13/2024 OMEGA CHECK (R) omega-6/omeg a-3 ratio 9.6 3.7-14 .4 Not Available [facility] - Manual Order Only [address], [place], [address], 11/13/2024 13:43:54 10/27/19 25 11/13/2024 OMEGA CHECK (R) omega-3 total 2.8 %_by_ wt Not Available [facility] - Manual Order Only [address], [place], [address], 11/13/2024 13:43:54 10/27/19 25 11/13/2024 OMEGA CHECK (R) epa 0.4 %_by_ wt 0.2-2. 3 Not Available [facility] - Manual Order Only [address], [place], [address], 11/13/2024 13:43:54 10/27/19 25 11/13/2024 OMEGA CHECK (R) dpa 0.6 %_by_ wt 0.8-1. 8 low Not Available [facility] - Manual Order Only [address], [place], [address], 11/13/2024 13:43:54 10/27/19 25 11/13/2024 OMEGA CHECK (R) dha 1.9 %_by_ wt 1.4-5. 1 Not Available [facility] - Manual Order Only [address], [place], [address], 11/13/2024 13:43:54 10/27/19 25 11/13/2024 OMEGA CHECK (R) omega-6 total 27.2 %_by_ wt [facility] measu res a numbe r of omega -6 fatty acids with AA and LA being the two most abund ant forms repor elfego. Not Available [facility] - Manual Order Only [address], [place], [address], 11/13/2024 13:43:54 10/27/19 25 11/13/2024 OMEGA CHECK (R) arachidonic acid 8.1 %_by_ wt 8.6-15 .6 low Not Available [facility] - Manual Order Only [address], [place], [address], 11/13/2024 13:43:54 10/27/19 25 11/13/2024 OMEGA CHECK (R) linoleic acid 17.4 %_by_ wt 18.6-2 9.5 low Not Available [facility] - Manual Order Only [address], [place], [address], 11/13/2024 13:43:54 10/27/19 25 11/13/2024 COENZ YME Q10 coenzyme Q10 0.88 ug/mL >0.35 This test was devjenaro noel and its maged tical perfo rmanc e deborah cteri stics have been deter mined by [facility] [place] [facility]. It has not been clear ed or appro alanna by the U.S. Food and Drug Admin istra tion. This assay has been valid ated pursu ant to the CLIA regul ation s and is used for clini duane purpo ses. Coenz yme Q10 is a gan compo nent of the elect kaleb trans port chain , which creat es energ y. It is also invol alanna in antio xidan t pathw ays, inclu ding the regen erati on of the prote ctive funct ions of Vitam in E. CoQ10 may inter act with the antic oagul ant (bloo d thinn er) warfa rin and the diabe grisel drug insul in, and it may not be angeline tible with some types of cance r treat ment. For more infor marck montoya, visit https ://ww [facility]. h.gov /heal th/co enzym e-q10 /. Not Available [facility] - Manual Order Only [address], [place], [address], 11/13/2024 13:43:54 11/25/19 25 11/24/2024 CBC (INCL UDES DIFF/ PLT) white blood cell count 7.3 thous and/u L 3.8-10 .8 normal Not Available [facility] [address], [address], 11/24/2024 21:18:05 11/25/19 25 11/24/2024 CBC (INCL UDES DIFF/ PLT) red blood cell count 4.26 kristy on/uL 3.80-5 .10 normal Not Available [facility] [address], [place], [address], 11/24/2024 21:18:05 11/25/19 25 11/24/2024 CBC (INCL UDES DIFF/ PLT) hemoglobin 12.8 g/dL 11.7-1 5.5 normal Not Available [facility] [address], [place], [address], 11/24/2024 21:18:05 11/25/1911/24/2024 CBC (INCL UDES DIFF/ PLT) hematocrit 38.2 % 35.0-4 5.0 normal Not Available [facility] [address], [place], [address], 11/24/2024 21:18:05 11/25/1911/24/2024 CBC (INCL UDES DIFF/ PLT) MCV 89.7 fL 80.0-1 00.0 normal Not Available [facility] [address], [place], [address], 11/24/2024 21:18:05 11/25/1911/24/2024 CBC (INCL UDES DIFF/ PLT) MCH 30.0 pg 27.0-3 3.0 normal Not Available [facility] [address], [place], [address], 11/24/2024 21:18:05 11/25/1911/24/2024 CBC (INCL UDES DIFF/ PLT) MCHC 33.5 g/dL 32.0-3 6.0 normal For adult s, a sligh t decre ase in the calcu lated MCHC value (in the range of 30 to 32 g/dL) is most likel y not clini gricelda signi fican t; say er, it shoul d be inter prete d with cauti on in corre latio n with other red cell deidra eters and the patie nt's clini duane condi tion. Not Available [facility] [address], [place], [address], 11/24/2024 21:18:05 11/25/1911/24/2024 CBC (INCL UDES DIFF/ PLT) RDW 13.0 % 11.0-1 5.0 normal Not Available [facility] [address], [place], [address], 11/24/2024 21:18:05 11/25/19 25 11/24/2024 CBC (INCL UDES DIFF/ PLT) platelet count 122 thous and/u L 140-40 0 low Not Available [facility] [address], [place], [address], 11/24/2024 21:18:05 11/25/19 25 11/24/2024 CBC (INCL UDES DIFF/ PLT) MPV 13.0 fL 7.5-12 .5 high Not Available [facility] [address], [place], [address], 11/24/2024 21:18:05 11/25/19 25 11/24/2024 CBC (INCL UDES DIFF/ PLT) absolute neutrophils 3949 cells /uL 1500-7 800 normal Not Available [facility] [address], [place], [address], 11/24/2024 21:18:05 11/25/19 25 11/24/2024 CBC (INCL UDES DIFF/ PLT) absolute lymphocytes 2562 cells /uL 850-39 00 normal Not Available [facility] [address], [place], [address], 11/24/2024 21:18:05 11/25/19 25 11/24/2024 CBC (INCL UDES DIFF/ PLT) absolute monocytes 423 cells /uL 200-95 0 normal Not Available [facility] [address], [place], [address], 11/24/2024 21:18:05 11/25/19 25 11/24/2024 CBC (INCL UDES DIFF/ PLT) absolute eosinophils 292 cells /uL 15-500 normal Not Available [facility] [address], [place], [address], 11/24/2024 21:18:05 11/25/19 25 11/24/2024 CBC (INCL UDES DIFF/ PLT) absolute basophils 73 cells /uL 0-200 normal Not Available [facility] [address], [place], [address], 11/24/2024 21:18:05 11/25/19 25 11/24/2024 CBC (INCL UDES DIFF/ PLT) neutrophils 54.1 % normal Not Available [facility] [address], [place], [address], 11/24/2024 21:18:05 11/25/19 25 11/24/2024 CBC (INCL UDES DIFF/ PLT) lymphocytes 35.1 % normal Not Available [facility] [address], [place], [address], 11/24/2024 21:18:05 11/25/19 25 11/24/2024 CBC (INCL UDES DIFF/ PLT) monocytes 5.8 % normal Not Available [facility] [address], [place], [address], 11/24/2024 21:18:05 11/25/19 25 11/24/2024 CBC (INCL UDES DIFF/ PLT) eosinophils 4.0 % normal Not Available [facility] [address], [place], [address], 11/24/2024 21:18:05 11/25/19 25 11/24/2024 CBC (INCL UDES DIFF/ PLT) basophils 1.0 % normal Not Available [facility] [address], [place], [address], 11/24/2024 21:18:05 Result Notes None recorded. Problems Name Problem SNOMED Code Status Onset Date Resolution Date Notes Provider Name and Address Organization Details Recorded Time Postpart um depressi on 32800517 Completed 201702/25/2018 Linn Dodd NP [address] [place] [address], [address], [place], [address] , [place] - [facility] 4 13:15:53 Chronic constipa tion 712953954 Active 2023 Saw GI, no w/u done. Linn Dodd NP [address] [place] [address], [address], [place], [address] , [place] [facility] 4 13:09:06 Depressi ve disorder 23256596 Active 2023 Linn Dodd NP [address] [place] [address], [address], [place], [address] , [facility] - [facility] 4 13:11:30 Anxiety 04705552 Active 2023 Linn Dodd NP [address] [place] [address], [address], [place], [address] , [place] [facility] 4 13:11:37 Tinnitus 67762275 Active 2023 Linn Dodd NP [address] [place] [address], [address], [place], [address] , [facility] - [facility] 4 13:14:32 Unintent ional weight gain 60606705026 4104 Active 2023 Linn Dodd NP [address] [place] [address], [address], [place], [address] , [facility] - [facility] 4 13:15:05 Fatigue 25768344 Active 2023 Linn Dodd NP [address] [place] [address], [address], [place], [address] , [facility] - [facility] 4 13:19:19 Idiopath ic hypersom vipin 86790890676 07 Active 2023 Linn Dodd NP [address] [place] [address], [address], [place], [address] , [place] - [facility] 4 13:19:55 Abdomina l bloating 165371575 Active 2023 Linn Dodd NP [address] [place] [address], [address], [place], [address] , [place] [facility] 4 13:21:09 Eczema 73502278 Active 2023 Linn Dodd NP [address] [place] [address], [address], [place], [address] , [place] [facility] 4 13:21:51 Seasonal allergic rhinitis 807780645 Active 2023 Linn Dodd NP [address] [place] [address], [address], [place], [address] , [place] [facility] 4 13:22:00 Raynaud' s disease 404967410 Active 2023 Secondar y to frostbit e Linn Dodd NP [address] [place] [address], [address], [place], [address] , [place] [facility] 4 13:38:52 History of alcoholi sm 402745226 Completed 202308/28/2023 Removal Reason: 10/2010 Linn Dodd NP [address] [place] [address], [address], [place], [address] , [place] [facility] 4 13:39:23 Loss of hair 110393778 Active 2023 Linn Dodd NP [address] [place] [address], [address], [place], [address] , [place] [facility] 4 14:18:35 Reduced libido 2993896 Active 2023 Linn Dodd NP [address] [place] [address], [address], [place], [address] , [place] [facility] 4 14:18:52 Vitamin D deficien cy 78668095 Active 2023 Linn Dodd NP [address] [place] [address], [address], [place], [address] , [facility] - [facility] 4 14:26:42 Gastroin testinal candidia sis 92207873 Active 2023 Linn Dodd NP [address] [place] [address], [facility] [address], [place], [address] , [facility] - [facility] 4 08:15:29 Tick-bor ne relapsin g fever 86053446 Active 2023 Linn Dodd NP [address] [place] [address], [facility] [address], [place], [address] , [facility] - [facility] 4 08:30:30 Infectio n by Bernardino reinoso 028055862 Active 2023 Linn Dodd NP [address] [place] [address], [place] [address], [place], [address] , [facility] - [facility] 4 08:31:17 Chocolat e cyst of ovary 921211004 Active 2024 Possible endometr iosis DANILO Barth [address] [place] [address], [place] [address], [place], [address] , [facility] 5 09:07:07 Thromboc ytopenic disorder 466876969 Active 2024 DANILO Barth [address] [place] [address], [facility] [address], [place], [address] , [facility] 5 18:33:17 Problem Notes None recorded. Procedures Surgical History Date Name Laterality Status Provider Name and Address Organization Details Recorded Time 03/24/19 25 Date of Last Pap Smear completed DANILO Barth [address] [place] [address], [place] [address], [place], [address], [facility] - [facility] 10/22/2024 09:07:47 03/24/19 20 Remove tonsils and adenoids completed Linn Dodd NP [address] [place] [address], [facility] [address], [place], [address], [facility] - [facility] 08/28/2023 13:44:12 Breast reduction completed Susana Dodd NP [address] [facility], [address], [place], [address], [facility] 08/28/2023 13:43:24 excision of fibroadenoma of breast completed Linn Dodd NP [address] [facility], [address], [place], [address], [facility] 08/28/2023 13:43:38 Imaging Results None recorded. Procedure Notes None recorded. Medical Equipment None Reported. Allergies Allergen ID Allergen Name Allergen Category Reaction Reaction Severity Criticality Documentation Date Start Date Code Code System Note Provider Name and Address Organization Details Recorded Time 9044 wheat preparati on food,medi cation Not available Not available Not available 08/28/2023 37579 52 RxNorm Linn Dodd NP [address] [place] [address], [address], [place], [address], [facility] 13:21:18 9045 oats preparati on food Not available Not available Not available 08/28/2023 99405 1 RxNorm Linn Dodd NP [address] [facility], [address], [place], [address], [facility] 4 13:21:23 9046 barley extract food Not available Not available Not available 08/28/2023 99101 66 RxFabian Dodd NP [address] [place] [address], [address], [place], [address], [facility] 13:21:33 Medications Name Sig Start Date Stop Date Status Note LastModified by Organization Details LastModified Time compounded medication Take 1 pill (1.5mg) at night, slowly increase by 1.5mg (1 pill) every 7-10 days as tolerated to goal 4.5mg (3 pills). 2024 active Not Available Not Available Not Avai lable nifedipine ER 30 mg tablet,exte nded release 24 hr TAKE 1 TABLET BY MOUTH EVERY DAY FOR 90 DAYS 10/22 completed Not Available Not Available Not Available buspirone 5 mg tablet TAKE 1 TABLET BY MOUTH THREE TIMES DAILY 10/22 completed Not Available Not Available Not Available trazodone 50 mg tablet TAKE 1 TABLET BY MOUTH AT BEDTIME FOR SLEEP active Not Available Not Available No t Available cetirizine 10 mg tablet TAKE 1 TABLET BY MOUTH ONCE A DAY active Not Available Not Available No t Available prednisone 20 mg tablet TAKE 2 TABLETS BY MOUTH DAILY FOR 5 DAYS 10/22 completed Not Available Not Available Not Available sertraline 100 mg tablet TAKE 1 TABLET BY MOUTH DAILY 10/22 completed Not Available Not Available Not Available nystatin 500,000 unit tablet TAKE 2 TABLETS BY MOUTH TWICE DAILY 10/22 completed Not Available Not Available Not Available Diflucan 100 mg tablet Take 1 tablet every day by oral route for 21 days. 12/27 completed Not Available Not Available Not Available trazodone 100 mg tablet TAKE A HALF A TABLET BY MOUTH EVERY DAY 10/22 completed Not Available Not Available Not Available benzonatate 100 mg capsule TAKE 1 CAPSULE BY MOUTH THREE TIMES DAILY NEEDED FOR COUGH 10/22 completed Not Available Not Available Not Available buspirone 7.5 mg tablet TAKE 1 TABLET BY MOUTH THREE TIMES DAILY active Not Available Not Available No t Available guanfacine 2 mg tablet TAKE 1 TABLET BY MOUTH AT BEDTIME 10/22 completed Not Available Not Available Not Available amoxicillin 875 mg-potassiu m clavulanate 125 mg tablet TAKE 1 TABLET BY MOUTH EVERY 12 HOURS FOR 7 DAYS 10/19 completed Not Available Not Available Not Available bupropion HCl XL 300 mg 24 hr tablet, extended release TAKE 1 TABLET BY MOUTH DAILY 10/22 completed Not Available Not Available Not Available bupropion HCl XL 150 mg 24 hr tablet, extended release TAKE 1 TABLET BY MOUTH DAILY 10/22 completed Not Available Not Available Not Available 1.5/30 (28) 1.5 mg-30 mcg (21)/75 mg (7) tablet TAKE 1 TABLET BY MOUTH EVERY DAY active Not Available Not Available No t Available lactulose 10 gram/15 mL oral solution AFTER COLLECTIN G YOUR FIRST SAMPLE OF THE HealthboxSMART KIT, DRINK SINGLE DOSE OF LACTULOSE 15ML SOLUTION WITH OR FOLLOWED BY ONE CUP (8OZ) OF W active Not Available Not Available No t Available desvenlafax ine succinate ER 50 mg tablet,exte nded release 24 hr TAKE 1 TABLET BY MOUTH DAILY WITH THE 100MG TABLET FOR A TOTAL OF 150MG DAILY active Not Available Not Available No t Available desvenlafax ine succinate ER 100 mg tablet,exte nded release 24 hr TAKE 1 TABLET BY MOUTH DAILY active Not Available Not Available No t Available desvenlafax ine ER 100 mg tablet,exte nded release 24 hr Take 1 tablet every day by oral route. active Not Available Not Available No t Available Airsupra 90 mcg-80 mcg/actuati on HFA aerosol inhaler INHALE 2 PUFFS BY MOUTH EVERY 4 TO 6 HOURS NEEDED 10/22 completed Not Available Not Available Not Available Vitals Date Recorded Body height Body mass index (BMI) Body weight Provider Name and Address Organization Details Last Updated DateTime 10/22/2024 165.1 cm 32.1 kg/m2 13210.33 g DANILO Barth [address] [place] [address], [address], [place], [address], [facility] 10/22/2024 09:06:41 Date Recorded Body height Provider Name an d Address Organization Details Last Updated DateTime 11/29/2024 165.1 cm DANILO Barth [address] [place] [address], [place] [address], [place], [address], [facility] 11/29/2024 13:03:30 Date Recorded Body height Provider Name an d Address Organization Details Last Updated DateTime 12/24/2024 165.1 cm DANILO Barth [address] [place] [address], [place] [address], [place], [address], [facility] 12/24/2024 10:08:17 Social History Question Answer Notes LastModified by Organizat ion Details LastModified Time Tobacco Smoking Status Never Smoker Linn Dodd NP [address] [place] [address], [facility] [address], [place], [address], [facility] 08/28/2023 13:33:41 What Is Your Level Of Caffeine Consumption? Moderate 1 Celsius/da y [email or web address] Information not available 10/22/2024 What Type Of Diet Are You Following? REGULAR [email or web address] Information not available 08/28/2023 Ancestry/Ethn icity [place]inamese, [place], [place], S[place]ish [email or web address] Information not available 08/28/2023 How Much Tobacco Do You Smoke? No [email or web address] Information not available 08/28/2023 How Many Years Have You Smoked Tobacco? 0 [email or web address] Information not available 08/28/2023 Sex: Unknown Functional Status Question Answer Note LastModified by Organizat ion Details LastModified Time What is your level of alcohol consumption? None [email or web address] Information not available 08/28/2023 Are you currently employed? 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 [email or web address] Information not available 08/28/2023 What is your exercise level? Occasional [email or web address] Information not available 08/28/2023 Mental Status None recorded. Family History Nothing Reported Notes:Mom: epilepsy, PCOS, H [place], bicuspid aortic valve which was replaced, morbid obesity, precancerous uterine polyp (plans to have hysterectomy) Maternal grandfather: Alcoholic, from liver cancer Maternal grandmother: glaucoma, gut issues, 94 Father: High blood pressure, morbidly obese Paternal grandfather: HTN Paternal grandmother: Passed from PE, Factor V Leiden (pt is negative for this), HTN Medical History No medical history recorded. Gynecological History Statement/Question Response Abnormal Pap Yes Date of Last Pap Smear 03/24/2024 Most Recent Mammogram Date of Last Colonoscopy Most Recent Bone Density Obstetrics History GPAL:G 1 P 0 0 0 1 Type Value Living 1 Total 1 Past Encounters Encounter ID Performer Location Encounter Start Date Encounter Closed Date Diagnosis/Indication Diagnosis SNOMED-CT Code Diagnosis ICD10 Code Diagnosis IMO Codes Diagnosis Note [id number] Delbert Leonard MD [place] [facility] [address] [place] [address] 08/28/2023 13:05:10 08/28/2023 14:37:59 Chronic constipation 198330079 K59.09 08/28/23: Will check Lyme testing, Nutritiona l deficienci es, comprehens marley stool evaluation , food sensitivit ies. 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 Abdominal bloating 67920 9008 R14.0 08/28/23: Will check Lyme testing, Nutritiona l deficienci es, comprehens marley stool evaluation , food sensitivit ies. Unintentio nal weight gain 8720422356 80393 R63.5 08/28/23: Will check Lyme testing, Nutritiona l deficienci es, comprehens marley stool evaluation , food sensitivit ies. Tinnitus 60552674 H93.13 08/28/23: Will check Lyme testing, Nutritiona l deficienci es, comprehens marley stool evaluation , food sensitivit ies. Depressive disorder 3548 9007 F32.A 08/28/23: Will check Lyme testing, Nutritiona l deficienci es, comprehens marley stool evaluation , food sensitivit ies. Loss of hair 849323563 L 65.9 08/28/23: Will check Lyme testing, Nutritiona l deficienci es, comprehens marley stool evaluation , food sensitivit ies. Fatigue 65523896 R53.83 08/28/23: Will check Lyme testing, Nutritiona l deficienci es, comprehens marley stool evaluation , food sensitivit ies. Vitamin D deficiency 347 75088 E55.9 08/28/23: Will check Lyme testing, Nutritiona l deficienci es, comprehens marley stool evaluation , food sensitivit ies. Family his tory of diabetes mellitus 611697075 Z83.3 08/28/23: Will check Lyme testing, Nutritiona l deficienci es, comprehens marley stool evaluation , food sensitivit ies. [id number] Delbert Leonard MD [place] [address] [place] [address] 10/02/2023 07:51:22 10/02/2023 09:30:23 Chronic constipation 697363424 K59.09 10/02/23: Will treat for tyron and follow up in 2 months.08/27: Will check Lyme testing, Nutritiona l deficienci es, comprehens marley stool evaluation , food sensitivit ies. Idiopathic hypersomnia 6967201097 107 G47.11 10/02/23: Will start optimizing nutrition and nutritiona l deficienci es and follow up.08/28/23: Will check Lyme testing, Nutritiona l deficienci es, comprehens marley stool evaluation , food sensitivit ies. Abdominal bloating 81484 9008 R14.0 10/02/23: Will treat for tyron, remove food sensitivit ies, remove gluten, and follow up in 2 months.08/27: Will check Lyme testing, Nutritiona l deficienci es, comprehens marley stool evaluation , food sensitivit ies. Unintentio nal weight gain [id number] 20621 R63.5 10/02/23: Will treat for tyron, remove food sensitivit ies, remove gluten, and follow up in 2 months.08/27: Will check Lyme testing, Nutritiona l deficienci es, comprehens marley stool evaluation , food sensitivit ies. Tinnitus 92664310 H93.13 10/02/23: Will start optimizing nutrition and nutritiona l deficienci es and follow up.08/28/23: Will check Lyme testing, Nutritiona l deficienci es, comprehens marley stool evaluation , food sensitivit ies. Depressive disorder 3548 9007 F32.A 10/02/23: Will start optimizing nutrition and nutritiona l deficienci es and follow up.08/28/23: Will check Lyme testing, Nutritiona l deficienci es, comprehens marley stool evaluation , food sensitivit ies. Loss of hair 171726062 L 65.9 10/02/23: Will start optimizing nutrition and nutritiona l deficienci es and follow up.08/28/23: Will check Lyme testing, Nutritiona l deficienci es, comprehens marley stool evaluation , food sensitivit ies. Fatigue 09638486 R53.83 10/02/23: Will start optimizing nutrition and nutritiona l deficienci es and follow up.08/28/23: Will check Lyme testing, Nutritiona l deficienci es, comprehens marley stool evaluation , food sensitivit ies. Gastrointe stinal candidiasis 65649354 B37.82 10/02/23: Will treat with Nystatin and then Candibal. 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 boulardi. Pt understood and agreed to hold off until nutritiona l deficienci es and thyroid are optimized. 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 boulardi. Pt understood and agreed to hold off until nutritiona l deficienci es and thyroid are optimized. [id number] [place] [address] [place] [address] 10/17/2023 08:02:04 10/20/2023 08:07:17 Chronic constipation 683438649 K59.09 Pt has extensive history of constipati on; pt to increase physical movement, optimize fiber, and hydration Abdominal bloating 80895 9008 R14.0 Working on tyron treatment, remove food sensitivit ies, remove gluten Unintentio nal weight gain [id number] 99981 R63.5 Pt being treated for tyron, working on balancing diet, encouragin g to increase physical movement Fatigue 24369529 R53.83 Will start optimizing nutrition and creating balanced meals Gastrointe stinal candidiasis 62269716 B37.82 pt on supplement s to help with tyron; emphasis on low sugar foods [address] MD [facility] [address] [place] [address] 11/13/2023 07:38:58 11/13/2023 09:14:45 Chronic constipation 996201892 K59.09 11/13/23: Will repeat Nystatin for 4 weeks and then start herbal antifungal (GSE).10/01: Will treat for tyron and follow up in 2 months.08/27: Will check Lyme testing, Nutritiona l deficienci es, comprehens marley stool evaluation , food sensitivit ies. Idiopathic hypersomnia 8560528682 107 G47.11 11/13/23: Improved with yeast treatment. Will re-start treatment with Nystatin GSE d/t inability to tolerate Candibal and follow up.10/02/23 : Will start optimizing nutrition and nutritiona l deficienci es and follow up.08/28/23: Will check Lyme testing, Nutritiona l deficienci es, comprehens marley stool evaluation , food sensitivit ies. Abdominal bloating 83585 9008 R14.0 11/13/23: Appears to be slowly improving. Will 4: Will treat for tyron, remove food sensitivit ies, remove gluten, and follow up in 2 months.08/27: Will check Lyme testing, Nutritiona l deficienci es, comprehens marley stool evaluation , food sensitivit ies. Unintentio nal weight gain 4826833751 31405 R63.5 11/13/23: Continue treatment for tyron. Will check in at next visit.10/01: Will treat for tyron, remove food sensitivit ies, remove gluten, and follow up in 2 months.08/27: Will check Lyme testing, Nutritiona l deficienci es, comprehens marley stool evaluation , food sensitivit ies. Tinnitus 44394264 H93.13 11/13/23: Improved. Will continue to monitor.02/14: Will start optimizing nutrition and nutritiona l deficienci es and follow up.08/28/23: Will check Lyme testing, Nutritiona l deficienci es, comprehens marley stool evaluation , food sensitivit ies. Depressive disorder 4808 9007 F32.A 11/13/23: No improvemen t yet. Will monitor.02/14: Will start optimizing nutrition and nutritiona l deficienci es and follow up.08/28/23: Will check Lyme testing, Nutritiona l deficienci es, comprehens marley stool evaluation , food sensitivit ies. Loss of hair 558495027 L 65.9 11/13/23: No improvemen t yet. Will monitor.02/14: Will start optimizing nutrition and nutritiona l deficienci es and follow up.08/28/23: Will check Lyme testing, Nutritiona l deficienci es, comprehens marley stool evaluation , food sensitivit ies. Fatigue 45190102 R53.83 11/13/23: No improvemen t yet. Will monitor.02/14: Will start optimizing nutrition and nutritiona l deficienci es and follow up.08/28/23: Will check Lyme testing, Nutritiona l deficienci es, comprehens marley stool evaluation , food sensitivit ies. Gastrointe stinal candidiasis 78479282 B37.82 11/13/23: Will repeat Nystatin for 4 weeks and then start herbal antifungal (GSE).10/01: Will treat with Nystatin and then Candibal. [address] [address] [facility] [address], [address] [place] [address] 11/17/2023 07:40:55 11/17/2023 12:03:07 Chronic constipation 001252645 K59.09 11/17/23: Pt has extensive history of constipati on; pt to optimize fiber/ hydration and avoid food sensitivit ies Abdominal bloating 12845 9008 R14.0 11/17/23: Working on tyron treatment, remove food sensitivit ies, remove gluten; slight improvemen t Unintentio nal weight gain 9607132320 04614 R63.5 11/17/23 Pt being treated for tyron, working on balancing diet, encouragin g to increase physical movement Fatigue 33152345 R53.83 11/17/23: Pt on tyron protocol and continuing to avoid food sensitivit ies; saw brief improvemen ts, but backslidin g slightly now Gastrointe stinal candidiasis 19731394 B37.82 11/17/23: pt on supplement s to help with tyron; emphasis on low sugar foods [address] [address] [facility] [address], [address] [place] [address] 01/05/2024 07:34:05 01/06/2024 07:52:17 Chronic constipation 411366446 K59.09 11/17/23: Pt has extensive history of constipati on; pt to optimize fiber/ hydration and avoid food sensitivit ies1 4: Pt experienci ng difficulty following structure in diet and uncertain of bowel habits Abdominal bloating 64795 9008 R14.0 11/17/23: Working on tyron treatment, remove food sensitivit ies, remove gluten; slight improvemen t1: Pt did another round of abx, has been taking candibal- taking 1 2x/day. Bloating still a challenge Unintentio nal weight gain 0637952256 17597 R63.5 11/17/23 Pt being treated for tyron, working on balancing diet, encouragin g to increase physical [id number] /14/24: High stress currently; discussed small goals and heavy metals Gastrointe stinal candidiasis 48195650 B37.82 11/17/23: pt on supplement s to help with tyron; emphasis on low sugar foods01/04: still working through candibal supplement s [address] [facility] [address], [address] [place] [address] 10/22/2024 08:27:03 10/22/2024 14:21:42 Chronic constipation 542705837 K59.09 11/21/24: Check SIBO test, food sensitivit ies, [facility] 4: Will repeat Nystatin for 4 weeks and then start herbal antifungal (GSE).10/01: Will treat for tyron and follow up in 2 months.08/27: Will check Lyme testing, Nutritiona l deficienci es, comprehens marley stool evaluation , food sensitivit ies. Idiopathic hypersomnia 6452523542 107 G47.11 11/21/24: Check SIBO test, food sensitivit ies, [facility] 4: Improved with yeast treatment. Will re-start treatment with Nystatin GSE d/t inability to tolerate Candibal and follow up.10/02/23 : Will start optimizing nutrition and nutritiona l deficienci es and follow up.08/28/23: Will check Lyme testing, Nutritiona l deficienci es, comprehens marley stool evaluation , food sensitivit ies. Abdominal bloating 70864 9008 R14.0 11/21/24: Check SIBO test, food sensitivit ies, [facility], Humap: Appears to be slowly improving. Will 4: Will treat for tyron, remove food sensitivit ies, remove gluten, and follow up in 2 months.08/27: Will check Lyme testing, Nutritiona l deficienci es, comprehens marley stool evaluation , food sensitivit ies. Unintentio nal weight gain 2534299695 46577 R63.5 11/21/24: Check SIBO test, food sensitivit ies, [facility], Humap: Continue treatment for tyron. Will check in at next visit.10/01: Will treat for tyron, remove food sensitivit ies, remove gluten, and follow up in 2 months.08/27: Will check Lyme testing, Nutritiona l deficienci es, comprehens marley stool evaluation , food sensitivit ies. Tinnitus 41882767 H93.13 11/21/24: Check SIBO test, food sensitivit ies, [facility], Humap: Improved. Will continue to monitor.02/14: Will start optimizing nutrition and nutritiona l deficienci es and follow up.08/28/23: Will check Lyme testing, Nutritiona l deficienci es, comprehens marley stool evaluation , food sensitivit ies. Depressive disorder 3548 9007 F32.A 11/21/24: Check SIBO test, food sensitivit ies, [facility], Humap: No improvemen t yet. Will monitor.02/14: Will start optimizing nutrition and nutritiona l deficienci es and follow up.08/28/23: Will check Lyme testing, Nutritiona l deficienci es, comprehens marley stool evaluation , food sensitivit ies. Fatigue 76801182 R53.83 11/21/24: Check SIBO test, food sensitivit ies, [facility], Humap: No improvemen t yet. Will monitor.02/14: Will start optimizing nutrition and nutritiona l deficienci es and follow up.08/28/23: Will check Lyme testing, Nutritiona l deficienci es, comprehens marley stool evaluation , food sensitivit ies. Gastrointe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
--- OUTSIDE RECORDS SUMMARY | 2025-01-31 13:08 | XMS_ITS ---
Author Name [facility] Organization Unknown History of Medication Use Medication Directions Dispensed Refills Start Date End Date Stat us betamethasone dipropionate augmented (DIPROLENE-AF) 0.05 % cream Apply topically. 12/11/2024 active traZODone (DESYREL) 50 MG tablet Take 1 tablet (50 mg total) by mouth nightly. 05/21/2024 active busPIRone (BUSPAR) 7.5 MG tablet Take 1 tablet (7.5 mg total) by mouth 3 (three) times a day. active cetirizine (ZyrTEC) 10 MG tablet Take 1 tablet (10 mg total) by mouth. active Desvenlafaxine ER (KHEDEZLA) 100 MG Tablet SR 24 hr Take 1 tablet by mouth. active Magnesium Citrate 100 MG Cap 600 mg daily. active Allergies Allergen Reaction Severity Comment Documented Date Source Statu s WHEAT ITCHING 12/27/2024 [facility] active ADHESIVES/TAPE RASH/DERMATITIS Takes my s kin off. Even heart monitor leads cause issue. Paper tape NOT ok after surgery 02/2502/25/2023 [facility] active OAT RASH/DERMATITIS 11/21/2021 [facility] activ e Problems Problem Status Onset Date Problem Type Date of Resoluti on Source Constipation, unspecified constipation type active EncounterDiagnosisAct [facility] Endometrioma of left ovary active EncounterDiagnosisAct [facility] Dysmenorrhea active EncounterDiagnosisAct [facility] Encounters Encounter Type Encounter Reason Primary Diagnosis Location Date [facility] 01/[facility] [facility] 01/07/2025 Ambulatory Deep endometriosis o f left ovary Deep endometriosis of left ovary [facility] 12/27/2024 Care Team Organization Name Specialty Phone Email Start Date End [facility] 12/27/[address] [facility] 10/18/2024
--- OUTSIDE RECORDS SUMMARY | 2025-01-31 13:08 | XMS_ITS | Encounter Summary ---
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 Name Role Phone Unknown Primary Care Provider [phone] Encounter Details Date Type Department Care Team ([facility] st Contact Info) Description 01/04/2025 Scanned Document [facility] [place] [phone] Brandon aLm MD [address] [place] [id number] Social History Tobacco Use Types Packs/Day Years [...] on file documented as of this encounter Visit Diagnoses Not on filedocumented in this encounter Care Teams Mulling Machine Operator Relationship Specialty Start Date End Date Unknown Unknow Provider Address PCP - General 10/18/24 documented as of this encounter
== END 2025-01-31 11:49 | disposition home or self-care (01) ==
LOC: HO.HMCHD 10:57
PROVIDERS: PCP Internal Medicine; Visit Provider Internal Medicine
DX: D69.3 Immune thrombocytopenic purpura (principal); R73.03 Prediabetes

== ENCOUNTER 2025-01-31 11:49 | Outpatient (REF) | payer OTHER, SELFPAY ==
[2025-01-31 12:59] LABS: MANUAL DIFF FLAG NO
[2025-01-31 13:05] LABS: Hematocrit 39.2 % (37.0-47.0); Hemoglobin 13.3 g/dl (12.0-16.0); Imm Gran Abs Auto 0.02 X10*3/uL (0.00-0.03); Imm Gran Pct Auto 0.2 % (0.0-0.4); Lymphocytes Absolute Auto 3.3 X10*3/uL (1.2-4.9); Mean Corpuscular HGB Conc 33.9 g/dl (31.0-35.0); Mean Corpuscular Hemoglobin 29.6 pg (27.0-33.0); Mean Corpuscular Volume 87.1 fL (80.0-98.0); NRBC Abs Auto 0.000 X10*3/uL (0.0-0.012); NRBC Pct Auto 0.0 /100WBC (0.0-0.2); Platelet Count 121 X10*3/uL (160-400); Red Blood Count 4.50 X10*6/uL (4.20-5.50); White Blood Count 9.1 X10*3/uL (4.8-10.8)
[2025-01-31 13:43] LABS: Alanine Aminotransferase 22 U/L (0-31); Albumin Level 5.1 g/dL (3.5-5.0); Alkaline Phosphatase 80 U/L (39-117); Anion Gap 11 (12-20); Aspartate Amino Transferase 21 U/L (5-31); Blood Urea Nitrogen 13 mg/dL (9-16); Calcium 9.9 mg/dL (8.4-10.2); Carbon Dioxide 24 mmol/L (22-29); Chloride 109 mmol/L (96-108); Estimated Glomerular Filt Rate > 60; Potassium 4.1 mmol/L (3.3-5.1); Sodium 140 mmol/L (135-145); Total Protein 7.9 g/dL (6.5-8.0)
--- OUTSIDE RECORDS SUMMARY | 2025-01-31 14:13 | XMS_ITS | Clinical Summary ---
Author Organization [facility] Address [address] [place] [phone] Phone Care Team Providers Care Personnel And Payroll Technician Name Role Phone Jing Coffey MD Primary Care Provider + Allergies Active Allergy Reactions Criticality Noted Date Comments Adhesive Rash with Blisters High 02/25/2023 Takes my skin off. Even heart monitor leads cause issue. Paper tape NOT ok after surgery 02/25 Oats Dermatitis,Itching,Rash Low 11/21/2021 Wheat Dermatitis,Itching,Rash Low 11/21/2021 Medications sertraline (ZOLOFT) 100 MG tablet Take 100 mg by mouth daily. Active traZODone (DESYREL) 50 MG tablet Take 50 mg by mouth nightly at bedtime. Active norethindrone-et hinyl estradiol (MICROGESTIN 04/12) 1-0.02 mg per tablet Take 1 tablet by mouth daily. 0.02 or 0.03mg- unknown? Active cyanocobalamin, vitamin B-12, (VITAMIN B-12) 1000 MCG tablet 1 Active vitamin E 200 UNIT capsule Take by mouth. 2 Active butalbital-aceta minophen-caffein e (FIORICET, ESGIC) 50-325-40 mg per tablet TAKE 2 TABLETS BY MOUTH THREE TIMES DAILY NEEDED FOR HEADACHE. NOT TO EXCEED 6 TABLETS DAILY 2 Active cholecalciferol (VITAMIN D3) 400 unit tablet Take 400 Int'l Units by mouth. 1 Active buPROPion (WELLBUTRIN XL) 300 MG ER 24 hr tablet Take 300 mg by mouth daily. Active NIFEdipine (ADALAT CC) 30 MG 24 hr tabletIndication s:s/p valentine bite and for circulation Take 30 mg by mouth daily. Indications: s/p valentine bite and for circulation Active gabapentin (NEURONTIN) 100 MG capsuleIndicatio ns:Macromastia Take 1-2 capsules (100-200 mg total) by mouth 3 (three) times a day for 14 days. If you pain is not well controlled by gabapentin 100mg TID, increase your dose to 200mg TID 84 capsule 3 Active oxyCODONE 5 MG immediate release tabletIndication s:Macromastia Take 1 tablet (5 mg total) by mouth every 6 (six) hours as needed. Partial fill ok 15 tablet 3 Active Active Problems Problem Noted Date Diagnosed Date Depression 02/24/2023 Family History Medical History Relation Comments Hypertension Father Hypertension Mother Seizures Paternal Grandfather Deep vein thrombosis Paternal Grandmother Hypertension Paternal Grandmother Relation Status Comments Father Mother Paternal Grandfather Paternal Grandmother Social History Tobacco Use Types Packs/Day Years Used Date Smoking Tobacco: Never Smokeless Tobacco: Never Tobacco Cessation:Counseling Given: Not Answered Alcohol Use Standard Drinks/Week Comments Not Currently 0 (1 standard drink = 0.6 oz pure alcohol) history alcoholism 12 years sobrity Education Answer Date Recorded Are you interested in more education? Not on karl e 07/20/2022 Are you concerned about learning? Not on file 07/20/2022 No 07/20/2022 No 07/20/2022 Digital Access Answer Date Recorded No 08/18/2022 No 08/18/2022 Reliable internet access at home? Not on file 08/18/2022 Device with a working camera? Not on file Intimate Partner Violence Answer Date R ecorded Are you denied basic needs s uch as food, clothing, or medical care? No 02/17/2023 In the past 12 months have y ou been in a relationship with a person who hurts, threatens, or tries to control you? No 02/17/2023 Are you denied basic needs s uch as food, clothing, or medical care? No 02/17/2023 In the past 12 months have y ou been in a relationship with a person who hurts, threatens, or tries to control you? 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 on file Not on file Not on file Last Filed Vital Signs Vital Sign Reading Time Taken Comments Blood Pressure 115/69 02/24/2023 10:15 AM EST Pulse 75 02/24/2023 10:15 AM EST Temperature 36.7 C (98 F) 02/24/2023 9:38 AM EST Respiratory Rate 15 02/24/2023 10:15 AM EST Oxygen Saturation 95% 02/24/2023 10:15 AM EST Inhaled Oxygen Concentration - - Weight 88.5 kg (195 lb) 02/24/2023 6:37 AM EST Height 165.1 cm (5' 5 ) 02/24/2023 6:37 AM EST Body Mass Index 32.45 02/24/2023 6:37 AM EST Plan of Treatment Health Maintenance Due Date Last Done Comments DEPRESSION SCREENING 1997 HEPATITIS C SCREENING 06/27/2003 HIV ONE-TIME SCREENING (18-65 YEARS) 06/27/2003 PAP SMEAR 2006 INFLUENZA VACCINE (#1) 2024 , 01/10/2020, 01/01/2019, Additional history exists COVID-19 VACCINE ( season) 2024 02/23/2021, 07/02/2020, 06/11/2020 SCREENING FOR DIABETES 02/24/2026 02/24/2023 Adult Td,Tdap Booster 01/03/2028 01/02/2018, 017 SMOKING STATUS SCREENING (Once After 26 Yrs) Completed 02/17/2023 HEPATITIS A VACCINES Aged Out No long er eligible based on patient's age to complete this topic HIB VACCINES Aged Out No longer eligi ble based on patient's age to complete this topic IPV VACCINES Aged Out No longer eligi ble based on patient's age to complete this topic MENINGOCOCCAL VACCINES (ACWY) Aged Out No longer eligible based on patient's age to complete this topic MENINGOCOCCAL VACCINES (B) Aged Out N o longer eligible based on patient's age to complete this topic PNEUMOCOCCAL VACCINES (0-49 years) Aged Out No longer eligible based on patient's age to complete this topic Medical Devices Not on file Insurance [employer] Member Subscriber Plan / Payer (Ef fective 2024-Present) Name:Nevaeh Horton Relation to Subscriber:Spouse Name:Bhupinder Horton Date of :1991 Address: [address] [place] [address] Payer ID:[id number] (NAIC) Type:PPO Address: [place] [phone] [employer] [place] [phone] [employer] BENEFITS ADMINISTRATORS [employer] BENEFITS ADMINISTRATORS [employer] BLUE BENEFITS ADMINISTRATORS Care Teams Personnel And Payroll Technician Relationship Specialty Start Date End Date Jing Coffey MD PCP - General Internal Medicine 08/10/18 Additional Source Comments The information contained in this document represents components of the legal health record. It is not the complete legal health record.[facility]
--- OUTSIDE RECORDS SUMMARY | 2025-01-31 14:14 | XMS_ITS | Encounter Summary ---
Author Organization [facility] Address [address] [address] Phone Care Team Providers Care High [employer] Chemistry Teacher Name Role Phone Jing Coffey MD Primary Care Provider + Reason for Referral * Physical Therapy (Routine) - Closed Specialty Diagnoses / Procedures Referred By Contac t Referred To Contact Physical Therapy Diagnoses Urinary incontinence, unspecified type Pelvic pain Low back pain, unspecified back pain laterality, unspecified chronicity, with sciatica presence unspecified System, Provider Not In, PhD [id number] [place] [address] Phone: tel: Referral ID Status Reason Start Date Expiration Date Visits Re quested Visits Authorized [id number] Closed 09/25/2018 09/21/2019 30 30 Encounter Details Date Type Department Care Team (Latest Contact Info) Description 08/10/2018 Transcribe Orders [facility] [address] [place] [address] Jing Coffey MD [address] [place] [phone] Urinary incontinence, unspecified type (Primary Dx); Pelvic pain; Low back pain, unspecified back pain laterality, unspecified chronicity, with sciatica presence unspecified Social History Tobacco Use Types Packs/Day Years Used Date Smoking Tobacco: Never Assessed Comments Unknown Sex and Gender Information Value Date Recorded Sex Assigned at Not on file Legal Sex Female 5:45 PM EST Gender Identity Not on file Sexual Orientation Not on file documented as of this encounter Plan of Treatment Not on file documented as of this encounter Procedures Procedure Name Priority Date/Time Associated Diagnosis Comments AMB REFERRAL TO [facility] PHYSICAL THERAPY Routine 09/28/2018 1:18 PM EDT Urinary incontinence, unspecified type Pelvic pain Low back pain, unspecified back pain laterality, unspecified chronicity, with sciatica presence unspecified documented in this encounter Results * Ambulatory referral to [facility] Physical Therapy (09/28/2018 1:18 PM EDT) us Provider Not In System PhD AMB [facility] REFERRALS Fin al Result documented in this encounter Visit Diagnoses Diagnosis Urinary incontinence, unspecified type- Primary Pelvic pain Low back pain, unspecified back pain laterality, unspecified chronicity, with sciatica presence unspecified documented in this encounter Care Teams High School Chemistry Teacher Relationship Specialty Start Date End Date Jing Coffey MD PCP - General Internal Medicine 08/10/18 documented as of this encounter Additional Source Comments The information contained in this document represents components of the legal health record. It is not the complete legal health record.[facility]
--- OUTSIDE RECORDS SUMMARY | 2025-01-31 14:14 | XMS_ITS | Encounter Summary ---
Author Organization [facility] Address [address] [facility] [address] [place] [phone] Phone Care Team Providers Care Conveyor System Dispatcher Name Role Phone Jing Coffey MD Primary Care Provider + Encounter Details Date Type Department Care Team (Late st Contact Info) Description 02/24/2023 Procedure Pass [facility] [address] [place] [phone] Social History Tobacco Use Types Packs/Day Years Used Date Smoking Tobacco: Never Smokeless Tobacco: Never Alcohol Use Standard Drinks/Week Comments [...] file Not on file Not on file documented as of this encounter Plan of Treatment Not on file documented as of this encounter Visit Diagnoses Not on filedocumented in this encounter Care Teams Conveyor System Dispatcher Relationship Specialty Start Date End Date Jing Coffey MD PCP - General Internal Medicine 08/10/18 documented as of this encounter Additional Source Comments The information contained in this document represents components of the legal health record. It is not the complete legal health record.[facility]
== END 2025-01-31 11:50 | disposition home or self-care (01) ==
LOC: HO.10HDL 11:49
PROVIDERS: Visit Provider Internal Medicine
DX: D69.3 Immune thrombocytopenic purpura (principal); R73.03 Prediabetes
CPT/HCPCS: 36415; 80053; 83036; 85025

== ENCOUNTER 2025-02-08 08:03 | Emergency (ER) | payer OTHER, SELFPAY ==
[2025-02-08 08:09] VITALS: BP 120/77; RESP 18; TEMP 36.6; O2SAT 98; BMI 32.4
--- NOTE | 2025-02-08 08:18 | ED.NAVMDI ---
HPI - Nausea/Vomiting/Diarrhea General Chief complaint: Nausea/Vomiting/Diarrhea Stated complaint: Nausea Vomiting Diarrhea Time Seen by Provider: 02/08/25 08:17 History of Present Illness ED Provider: Diane Castillo HPI Narrative: 39-year-old female with medical history significant for endometriosis, prediabetes, anemia, ITP, anxiety depression, chronic constipation, most recently started Wegovy for weight loss 3 days ago on 02/05/25, presents to the ED for evaluation of nausea and vomiting since yesterday evening at 4:00 p.m.. Patient reports that she vomited up her lunch from Friday afternoon aggressively. No hematemesis. Reports a decreased appetite since starting the medication. Endorsing active nausea, no vomiting. Denies any abdominal pain. No flank pain. No urinary complaints, denies hematuria, urgency or frequency, dysuria. Reports there is a chance of but she did not take a home test. No abnormal vaginal bleeding or discharge. No fever, chills. No chest pain or shortness of breath, palpitations. Was feeling in her usual state of health until the vomiting began. Reports she has had a total of 3 episodes of vomiting since yesterday evening at 4:00 p.m.. Related Data Home Medications ?Medication ?Instructions ?Recorded ?Confirmed norethindrone 1.5 mg-ethinyl 1 tab PO DAILY 07/14/23 estradiol 30 mcg(21)/iron 75 mg(7) tablet ( FE (28)) trazodone 50 mg tablet 50 mg PO BEDTIME PRN 07/14/23 01/31/25 betamethasone, augmented 0.05 % appl topical 01/31/25 01/31/25 topical cream buspirone 7.5 mg tablet 7.5 mg PO BID 01/31/25 01/31/25 cetirizine 10 mg tablet 10 mg PO DAILY PRN 01/31/25 01/31/25 desvenlafaxine succinate 100 mg 100 mg PO DAILY 01/31/25 01/31/25 tablet,extended release 24 hr desvenlafaxine succinate 50 mg 50 mg PO DAILY 01/31/25 01/31/25 tablet,extended release 24 hr naltrexone 4.5 mg capsule mg PO .QD 01/31/25 01/31/25 Previous Rx's ?Medication ?Instructions ?Recorded semaglutide (weight loss) 0.25 0.25 mg (0.5 mL) subcut QWEEK #2 mL 01/31/25 mg/0.5 mL subcutaneous pen injector (Wegovy) Allergies Allergy/AdvReac Type Severity Reaction Status Date / Time adhesive tape Allergy Rash Verified 02/08/25 08:10 oats Allergy Itching Verified 02/08/25 08:10 wheat Allergy Itching Verified 02/08/25 08:10 Review of Systems Review of Systems: ROS is otherwise negative unless mentioned in HPI. [facility] Past Medical History Medical History (Updated 02/08/25 @ 10:[address] [facility]) Endometriosis Prediabetes Anemia, unspecified Idiopathic thrombocytopenic purpura (ITP) Anxiety Depression Surgical History History of bilateral breast reduction surgery History of tonsillectomy History of loop electrical excision procedure (LEEP) History of lumpectomy of left breast Family History Family History (Updated 01/31/25 @ 09:34 by Jing Coffey MD) Mother Bicuspid aortic valve Borderline diabetes Primary hypertension Osteoporosis Sleep apnea Paternal Grandfather Stroke Skin cancer FH: prostate cancer Maternal Grandfather Alcoholism Paternal Grandmother Pulmonary embolism Social History Social History Housing: House Alcohol intake: former Patient Tobacco Use Status: Never used Tobacco Smoked in Last 30 Days: No e-Cigarette/Vaping Use: Never Used Use of substances other than those prescribed or required for medical reasons: No Advance Directives: Yes Advance Directives Information Provided: Yes Advance Directives on File: No Do you have a plan to hurt others: No Plan Patient : No service: No Current occupational status: employed 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 Constitutional: Well-appearing, NAD. Alert. Oriented X3. Eyes: EOMI. ENT: Pharynx normal. Neck: Normal inspection. Neck supple. CVS: Normal heart rate and rhythm. Pulses normal. Respiratory: No respiratory distress. Breath sounds normal. Abdomen: Soft and nontender. +BSx4. no CVA tendnerness bilaterally. Skin: Skin warm and dry. Normal skin color. Extremities: No lower extremity edema. Neuro: Oriented X 3. No motor deficit. Vital Signs: Vital Signs: Last Vital Signs Temp 98.5 F 02/08/25 10:15 Pulse 68 02/08/25 10:15 Resp 14 02/08/25 10:15 BP 122/74 02/08/25 10:15 Pulse Ox 97 02/08/25 10:15 O2 Del Method Room Air 02/08/25 10:15 BMI result Body Mass Index 32.4 Medications Administered Discontinued Medications Generic Name Dose Route Start Last Admin Trade Name Frecaren PRN Reason Stop Dose Admin Sodium Chloride 1,000 mls @ 999 mls/hr 02/08/25 08:27 02/08/25 09:57 Ns IV 02/08/25 09:27 Infused .Q1H1M ONE Infusion Ibuprofen 600 mg 02/08/25 10:08 02/08/25 10:16 Ibuprofen 600 Mg Tablet PO 02/08/25 10:09 600 mg ONCE ONE Administration Ondansetron HCl 4 mg 02/08/25 08:27 02/08/25 08:59 Ondansetron Hcl 4 Mg/2 Ml Vial IVPUSH 02/08/25 08:28 4 mg ONCE ONE Administration Medical Decision Making Medical Decision Making [facility] Narrative: Upon my assessment she appears well. Benign abdominal exam. Answering questions appropriately. No CVA tenderness bilaterally. Reports that the vomiting began acutely yesterday evening at 4:00 p.m., the 1st injection of Wegovy was 3 days prior. It is possibly related to the medication use, though also possibly underlying cystitis or viral pathology. We will obtain workup and reassess, given the absence of pain there is no indication for pain control in the ED but we will administer antiemetics and IV fluids. 0905-- platelet count decreasing at 116, in comparison to previous 8 days ago at 121. no indication for transfusion, no active bleeding, not on chemo, and not under 50. not a s/e of wegovy, as wegovy is not known to decrease platelet count. 0938--pending lipase level, lab work otherwise reassuring at this time. Reports improvement after antiemetic. Again in the setting of no abdominal pain there is no indication for imaging, abdominal exam remains benign. Patient to provide urinalysis, and p.o. trial prior to discharge. 1032-- tolerating p.o. comfortably while in the ED. She requested a dose of ibuprofen; she reports currently experiencing some menstrual cycle cramping in the lower abdomen. Good effect of ibuprofen. Lipase levels flat, labs overall reassuring. No indication for additional workup. Negative urinalysis. Negative . Vomiting and nausea most likely due to the Wegovy use. I did recommend at home she continues to use the Zofran as needed. Provided strict return precautions to the ED. Differential Diagnosis Differential Diagnoses: The differential diagnosis associated with the presentation includes Viral illness, gastroenteritis, bowel obstruction, medication reaction, , cystitis Admission/Observation Consideration of admission/observation: Escalation of care including admission/observation considered (passing PO challenge, not indicated for admission) Lab Data MDM Lab Attestation statement: I reviewed the patient's lab results. (plt downtrending with hx ITP and anemia, recommended f/u outpatient with heme. otherwise reassuring) 02/08/25 08:54 02/08/25 08:54 Labs: Lab Results 02/08/25 02/08/25 Range/Units 08:54 09:48 WBC 8.4 (4.8-10.8) X10*3/uL RBC 4.50 (4.20-5.50) X10*6/uL Hgb 13.4 (12.0-16.0) g/dl Hct 39.1 (37.0-47.0) % MCV 86.9 (80.0-98.0) fL MCH 29.8 (27.0-33.0) pg MCHC 34.3 (31.0-35.0) g/dl RDW 12.7 (11.0-16.0) % Plt Count 116 L (160-400) X10*3/uL MPV 12.3 (9.4-12.3) fL Immature Gran % (Auto) 0.2 (0.0-0.4) % Neut % (Auto) 69.8 (45-73) % Lymph % (Auto) 23.3 (20-40) % Whitfield % (Auto) 5.0 (2-11) % Eos % (Auto) 1.5 (0-4) % Baso % (Auto) 0.2 (0-2) % Lymph # (Auto) 2.0 (1.2-4.9) X10*3/uL [place]field # (Auto) 0.4 (0.1-1.2) X10*3/uL Eos # (Auto) 0.1 (0.0-0.4) X10*3/uL Baso # (Auto) 0.0 (0.0-0.2) X10*3/uL Abs Immat Gran (auto) 0.02 (0.00-0.03) X10*3/uL Absolute Neuts (auto) 5.9 (2.0-8.3) x10*3/uL Absolute Nucleated RBC 0.000 (0.0-0.012) X10*3/uL Nucleated RBC % (auto) 0.0 (0.0-0.2) /100WBC Sodium 139 (135-145) mmol/L Potassium 3.9 (3.3-5.1) mmol/L Chloride 107 (96-108) mmol/L Carbon Dioxide 24 (22-29) mmol/L Anion Gap 12 (12-20) BUN 11 (9-16) mg/dL Creatinine 0.82 (0.5-1.4) mg/dL Estim Creat Clear Calc 101.2 Estimated GFR > 60 Fasting Glucose 94 (60-99) mg/dL Calcium 9.2 D (8.4-10.2) mg/dL Total Bilirubin 0.5 (0.0-1.0) mg/dL Direct Bilirubin 0.1 (0.0-0.5) mg/dL AST 19 (5-31) U/L ALT 14 (0-31) U/L Alkaline Phosphatase 87 (39-117) U/L Total Protein 7.4 (6.5-8.0) g/dL Albumin 4.9 (3.5-5.0) g/dL Lipase 23 (8-78) U/L Beta HCG, Quant < 2 mIU/mL Urine Color Yellow Urine Appearance Clear Urine pH 7.0 (5.0-9.0) Ur Specific [place] <= 1.005 (1.005-1.025) Urine Protein Negative (Neg-Trace) mg/dL Urine Glucose (UA) Negative (Negative) mg/dL Urine Ketones 15 (Negative) mg/dL Urine Blood Negative (Negative) Urine Nitrite Negative (Negative) Ur Leukocyte Esterase Negative (Negative) Urine Test NEGATIVE (NEGATIVE) Independent Historian Clinical information obtained from an independent historian. History obtained from or confirmed by: Spouse External Record Review External record reviewed: Outpatient record and Prior outpatient labs (Lab work most recently completed 01/31/2025 showing low platelet count of 121, but normal LFTs at 21, 22.) Tests considered The following testing was considered but not selected: CT imaging of the abdomen and pelvis-- benign abdominal exam, any evidence of abdominal pain and reassuring lab work, not currently clinically indicated. Chronic Conditions Patient?s care impacted by: Other (ITP, anemia, endometriosis, constipation) Discharge Plan Discharge Clinical Impression: Low platelet count Nausea & vomiting Qualifiers: Vomiting type: unspecified Qualified Code(s): R11.2 - Nausea with vomiting, unspecified Patient Disposition: Home, Self-Care Instructions: Acute Nausea and Vomiting (DC), Thrombocytopenia (ED) Additional Instructions: As we discussed, your lab work today was overall reassuring. We discussed that your platelet count continues to trend downward, meaning it is decreased again, now at 116. Eight days ago you were 121. Please follow up with your concrete bucket unloader within the next few days. Otherwise, your lab work was overall reassuring. Your liver function tests, lipase level were both reassuring. The urinalysis showed no signs of infection. While in the ER we gave you IV fluids, and a dose of nausea medication. The nausea medicatio is called Zofran, and you have a prescription for this medication at home. Please continue to use this as prescribed. With any new, worsening complaints at any time, please seek re-evaluation in the ED. Prescriptions: No Action trazodone 50 mg tablet 50 mg PO BEDTIME PRN norethindrone-e.estradiol-iron [ ()] 1.5 mg-30 mcg (21)/75 mg (7) tablet 1 tab PO DAILY cetirizine 10 mg tablet 10 mg PO DAILY PRN betamethasone, augmented 0.05 % cream topical buspirone 7.5 mg tablet 7.5 mg PO BID desvenlafaxine succinate 50 mg tablet extended release 24 hr 50 mg PO DAILY desvenlafaxine succinate 100 mg tablet extended release 24 hr 100 mg PO DAILY naltrexone 4.5 mg capsule PO .QD Wegovy 0.25 mg/0.5 mL pen injector 0.25 mg subcut QWEEK Qty: 2 1RF Rx Instructions: administer weeks 1 through 4 of therapy Referrals: Jing Coffey MD [Primary Care Provider, Internal Medicine] Print Language: Slovenian
[2025-02-08 08:43] VITALS: BP 118/73; PULSE 67; RESP 16; TEMP 36.9; O2SAT 97
[2025-02-08 08:58] LABS: MANUAL DIFF FLAG NO
[2025-02-08 09:00] LABS: Hematocrit 39.1 % (37.0-47.0); Hemoglobin 13.4 g/dl (12.0-16.0); Imm Gran Abs Auto 0.02 X10*3/uL (0.00-0.03); Imm Gran Pct Auto 0.2 % (0.0-0.4); Lymphocytes Absolute Auto 2.0 X10*3/uL (1.2-4.9); Mean Corpuscular HGB Conc 34.3 g/dl (31.0-35.0); Mean Corpuscular Hemoglobin 29.8 pg (27.0-33.0); Mean Corpuscular Volume 86.9 fL (80.0-98.0); NRBC Abs Auto 0.000 X10*3/uL (0.0-0.012); NRBC Pct Auto 0.0 /100WBC (0.0-0.2); Platelet Count 116 X10*3/uL (160-400); Red Blood Count 4.50 X10*6/uL (4.20-5.50); White Blood Count 8.4 X10*3/uL (4.8-10.8)
[2025-02-08 09:22] LABS: Alanine Aminotransferase 14 U/L (0-31); Albumin Level 4.9 g/dL (3.5-5.0); Alkaline Phosphatase 87 U/L (39-117); Anion Gap 12 (12-20); Aspartate Amino Transferase 19 U/L (5-31); Blood Urea Nitrogen 11 mg/dL (9-16); Calcium 9.2 mg/dL (8.4-10.2); Carbon Dioxide 24 mmol/L (22-29); Chloride 107 mmol/L (96-108); Creatinine Clr Calc Pharmacy 101.2; Estimated Glomerular Filt Rate > 60; Potassium 3.9 mmol/L (3.3-5.1); Sodium 139 mmol/L (135-145); Total Protein 7.4 g/dL (6.5-8.0)
[2025-02-08 09:58] LABS: Appearance Urine Clear; Glucose Urine UA Negative (Negative); PH 7.0 (5.0-9.0); Specific Gravity - Urine <= 1.005 (1.005-1.025)
[2025-02-08 10:02] LABS: UPreg QC Valid YES
[2025-02-08 10:05] LABS: Lipase 23 U/L (8-78)
[2025-02-08 10:15] VITALS: BP 122/74; PULSE 68; RESP 14; TEMP 36.9; O2SAT 97
--- NOTE | 2025-02-08 10:18 | PC.NURSE ---
Patient PO trialled Patient was able to eat a package of ijeoma crackers without N/V Provider notified
[2025-02-08 10:57] VITALS: BP 122/74; PULSE 68; RESP 14; TEMP 36.9; O2SAT 97
--- OUTSIDE RECORDS SUMMARY | 2025-02-08 16:05 | XMS_ITS | Encounter Summary ---
Author Organization [facility] Address [address] [facility] [address] [place] [phone] Phone Care Team Providers Care Stockholder Name Role Phone Jing Coffey MD Primary Care Provider + Encounter Details Date Type Department Care Team (Late st Contact Info) Description 02/24/2023 Procedure Pass [facility] [address] [place] [id number] Social History Tobacco Use Types Packs/Day Years [...] on filedocumented in this encounter Care Teams Stockholder Relationship Specialty Start Date End Date Jing Coffey MD PCP - General Internal Medicine 08/10/18 documented as of this encounter Additional Source Comments The information contained in this document represents components of the legal health record. It is not the complete legal health record.[facility]
--- OUTSIDE RECORDS SUMMARY | 2025-02-08 16:05 | XMS_ITS | Encounter Summary ---
Author Organization [facility] Address [address] [address] Phone Care Team Providers Care Beater Engineer Helper Name Role Phone Jing Coffey MD Primary Care Provider + Reason for Referral * Physical Therapy (Routine) - Closed Specialty Diagnoses / Procedures Referred By Contac t Referred To Contact Physical Therapy Diagnoses Urinary incontinence, unspecified type Pelvic pain Low back pain, unspecified back pain laterality, unspecified chronicity, with sciatica presence unspecified System, Provider Not In, PhD [id number] [place] [address] Phone: tel: Referral ID Status Reason Start Date Expiration Date Visits Re quested Visits Authorized [id number] Closed 09/25/2018 09/21/2019 30 30 Encounter Details Date Type Department Care Team (Latest Contact Info) Description 08/10/2018 Transcribe Orders [facility] [address] [place] [address] Jing Coffey MD [address] [place] [id number] Urinary incontinence, unspecified type (Primary Dx); Pelvic [...] Date/Time Associated Diagnosis Comments AMB REFERRAL TO [facility] PHYSICAL THERAPY Routine 09/28/2018 1:18 PM EDT Urinary incontinence, unspecified type Pelvic pain Low back pain, unspecified back pain laterality, unspecified chronicity, with sciatica presence unspecified documented in this encounter Results * Ambulatory referral to [facility] Physical Therapy (09/28/2018 1:18 PM EDT) us Provider Not In System PhD AMB [facility] REFERRALS Fin al Result documented in this encounter Visit Diagnoses Diagnosis Urinary incontinence, unspecified type- Primary Pelvic pain Low back pain, unspecified back pain laterality, unspecified chronicity, with sciatica presence unspecified documented in this encounter Care Teams Beater Engineer Helper Relationship Specialty Start Date End Date Jign Coffey MD PCP - General Internal Medicine 08/10/18 documented as of this encounter Additional Source Comments The information contained in this document represents components of the legal health record. It is not the complete legal health record.[facility]
--- OUTSIDE RECORDS SUMMARY | 2025-02-08 16:05 | XMS_ITS | Clinical Summary ---
Author Organization [facility] Address [address] [facility] [place] [address] Phone Care Team Providers Care Technical Account Manager Name Role Phone Jing Coffey MD Primary [...] topic Medical Devices Not on file Insurance [employer] Member Subscriber Plan / Payer (Ef fective 2024-Present) Name:Nevaeh Horton Relation to Subscriber:Spouse Name:Bhupinder Horton Date of :1991 Address: [address] [place] [address] Payer ID:[id number] (NAIC) Type:PPO Address: [place] [phone] [employer] [place] [phone] [employer]EN[employer] [address] Care Teams Technical Account Manager Relationship Specialty Start Date End Date Jing Coffey MD PCP - General Internal Medicine 08/10/18 Additional Source Comments The information contained in this document represents components of the legal health record. It is not the complete legal health record.[facility]
--- OUTSIDE RECORDS SUMMARY | 2025-02-08 16:05 | XMS_ITS | Clinical Summary ---
Author Organization [facility] Address [address] [place] [address] Care Team Providers Care Post Acute Care Nurse Practitioner Name Role Phone Unknown Primary Care Provider [phone] Allergies Active Allergy Reactions Criticality Noted Date [...] Description 01/26/2025 1:30 PM EST Ancillary Procedure [facility] [address] [place] [phone] Provider, File Room 01/07/2025 8:05 AM EDT Ancillary Procedure [facility] [address] [place] [phone] Provider, File Room 01/04/2025 Scanned Document [facility] [address] [place] [phone] Brandon Lam MD 12/27/2024 1:00 PM EDT Office Visit Gynecologic Specialties at [facility] [address] [facility] [address] [place] [address] Brandon Lam MD Endometrioma of left [...] IMG DIGITIZE FILMS Final Resu lt [place] [phone] * MOY Archive for reference only MR (01/07/2025 8:05 AM EDT) Narrative [place] - 01/07/2025 8:03 AM EDT This order has been auto-finalized and does not contain a result. us File Room Provider IMG DIGITIZE FILMS Final Resu lt [place] [phone] from Last 3 Months Insurance PPO Care Teams Post Acute Care Nurse Practitioner Relationship Specialty Start Date End Date Unknown Unknow Provider Address PCP - General 10/18/24
--- OUTSIDE RECORDS SUMMARY | 2025-02-08 16:06 | XMS_ITS | Encounter Summary ---
Author Organization [facility] Address [address] [place] [address] Care Team Providers Care Financial Analyst Intern Name Role Phone Unknown Primary Care Provider [phone] Encounter Details Date Type Department Care Team ([facility] st Contact Info) Description 01/04/2025 Scanned Document [facility] [place] [phone] Brandon Lam MD [address] [place] [phone] Social History Tobacco Use Types Packs/Day Years [...] on filedocumented in this encounter Care Teams Financial Analyst Intern Relationship Specialty Start Date End Date Unknown Unknow Provider Address PCP - General 10/18/24 documented as of this encounter
== END 2025-02-08 11:00 | disposition home or self-care (01) ==
PROVIDERS: Nurse Practitioner; Emergency Provider Emergency Medicine; PCP Internal Medicine
DX: R11.2 Nausea with vomiting, unspecified (principal); D69.6 Thrombocytopenia, unspecified
CPT/HCPCS: 36415; 80048; 80076; 81003; 81025; 83690; 84702; 85025; 96361; 96374; 99284; 99285; J2405

== ENCOUNTER 2025-02-19 14:09 | Emergency (ER) | payer OTHER, SELFPAY ==
--- NOTE | ~2025-02-19 | CT_ITS ---
CLINICAL HISTORY: RLQ abd pain, tender CT abdomen and pelvis with contrast Comparison: None provided Findings: No consolidation of the imaged lung bases. 3 mm low-density lesion left lobe of the liver is nonspecific by CT. Mild periportal edema noted. Gallbladder wall thickening is nonspecific and may be due to underdistention. Adrenal glands and pancreas are partly obscured and otherwise unremarkable. Spleen measures at the upper limits of normal. No hydronephrosis. Small cystic structures of the kidneys too small to characterize by imaging. Small mesenteric and retroperitoneal lymph nodes are nonspecific and may be reactive. Portions of the appendix obscured. Small appendicolith present without findings of acute appendicitis (36 of series 5). No small bowel obstruction. Severe stool burden present, including the cecum. Fluid anterior to cecum is nonspecific and may reflect stranding from small omental infarction. Colitis and other inflammation considered less likely at this time (44 of series 3). Uterus is retroverted and mildly retroflexed. Mild wall thickening of the urinary bladder is nonspecific. Cystic structure of the left ovary measures [address] Bilateral adnexa measuring at the upper limits of normal. Mild free fluid in the pelvis nonspecific and may be reactive. Fluid from pelvic inflammatory disease and ruptured ovarian cysts also considered. Disc bulge at L5-S1. Mild facet arthropathy including lower lumbar spine. Mild subcutaneous edema is noted dependently. IMPRESSION: 1. Severe stool burden. No small bowel obstruction. 2. Appendicolith present without findings of acute appendicitis of the imaged appendix. 3. Mild fluid anterior to the cecum is nonspecific. Differential considerations include small and/or focal omental infarction. 4. Mild fluid in the pelvis nonspecific. 5. Wall thickening of the urinary bladder. 6. 2 mm low-density lesion in the left lobe liver is too small to characterize by imaging at this time. Please consider six-month follow-up with liver mass imaging. This document has been electronically signed by: Foreign Weiss MD on 02/19/2025 19:24:26
[2025-02-19 14:14] VITALS: BP 135/68; PULSE 76; RESP 18; TEMP 36.1; O2SAT 97; BMI 31.4
--- NOTE | 2025-02-19 14:18 | ED.ABDPAIN ---
HPI - Abdominal Pain General Chief Complaint: Abdominal Pain Stated Complaint: Stomach Pain Time Seen by Provider: 02/19/25 16:23 History of Present Illness ED Provider: yosi HPI narrative: 39 F with 1 d RLQ pain. Prior ov cyst. No VB or discharge. No flank pain. Denies n/v/diarrhea or constipation. Related Data Home Medications ?Medication ?Instructions ?Recorded ?Confirmed norethindrone 1.5 mg-ethinyl 1 tab PO DAILY 07/14/23 estradiol 30 mcg(21)/iron 75 mg(7) tablet (June FE (28)) trazodone 50 mg tablet 50 mg PO BEDTIME PRN 07/14/23 01/31/25 betamethasone, augmented 0.05 % appl topical 01/31/25 01/31/25 topical cream buspirone 7.5 mg tablet 7.5 mg PO BID 01/31/25 01/31/25 cetirizine 10 mg tablet 10 mg PO DAILY PRN 01/31/25 01/31/25 desvenlafaxine succinate 100 mg 100 mg PO DAILY 01/31/25 01/31/25 tablet,extended release 24 hr desvenlafaxine succinate 50 mg 50 mg PO DAILY 01/31/25 01/31/25 tablet,extended release 24 hr naltrexone 4.5 mg capsule mg PO .QD 01/31/25 01/31/25 Previous Rx's ?Medication ?Instructions ?Recorded semaglutide (weight loss) 0.25 0.25 mg (0.5 mL) subcut QWEEK #2 mL 01/31/25 mg/0.5 mL subcutaneous pen injector (Wegovy) polyethylene glycol 3350 17 17 g PO DAILY #119 grams 02/19/25 gram/dose oral powder (Miralax) Allergies Allergy/AdvReac Type Severity Reaction Status Date / Time adhesive tape Allergy Rash Verified 02/19/25 14:18 oats Allergy Itching Verified 02/19/25 14:18 wheat Allergy Itching Verified 02/19/25 14:18 PMFSH Past Medical History Medical History (Updated 02/20/25 @ 00:00 by Gretchen Hook) Endometriosis Prediabetes Anemia, unspecified Idiopathic thrombocytopenic purpura (ITP) Anxiety Depression Surgical History History of bilateral breast reduction surgery History of tonsillectomy History of loop electrical excision procedure (LEEP) History of lumpectomy of left breast Family History Family History (Updated 01/31/25 @ 09:34 by Jing Coffey MD) Mother Bicuspid aortic valve Borderline diabetes Primary hypertension Osteoporosis Sleep apnea Paternal Grandfather Stroke Skin cancer FH: prostate cancer Maternal Grandfather Alcoholism Paternal Grandmother Pulmonary embolism Social History Social History Housing: House Alcohol intake: former Patient Tobacco Use Status: Never used Tobacco e-Cigarette/Vaping Use: Never Used service: No Current occupational status: employed 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 Head: Atraumatic Eyes: Anicteric, Normal conjunctiva. ENT: Moist mucosa, no pallor. Neck: Supple. Respiratory: Breathing comfortably, No distress.Clear to auscultation bilaterally, symmetric chest expansion, No wheeze, rales, ronchi. Cardiovascular: Regular rate and rhythm. No murmurs or rub. Well perfused periphery, warm extremities. No edema. Abdominal: Soft, no objective distension. No palpable masses or obvious organomegaly. Mild to mod RLQ TTP, no guarding, no rebound tenderness or other peritoneal findings. : No flank tenderness. Neuro: Alert. Gross movement of all extremities intact. Vital signs: See flowsheet Vital Signs: Vital Signs - 24 hr 02/19/25 14:14 02/19/25 16:29 02/19/25 18:14 Temperature 96.9 F 98.3 F 98.1 F Pulse Rate 76 73 76 Respiratory Rate 18 16 16 Blood Pressure 135/68 135/77 133/76 Pulse Oximetry 97 99 100 Oxygen Delivery Method Room Air Room Air Room Air BMI result Body Mass Index 31.4 Course Course Course Narrative: This is a Rapid Medical Examination (RME) performed by Linda Kulkarni PA-C in triage. Full HPI, ROS, assessment and treatment plan per primary provider in the Main ED. Hx: 39 yo F here for eval of RLQ abdominal pain x yesterday, worsening this morning. constant. no radiation. denies N/V/D, urinary sx, vaginal bleeding/discharge. LMP 02/08. hx ovarian cysts. PE/vitals: +mcburney point tenderness. Plan: labs/ UA, preg, will need further imaging in back Medical Decision Making Medical Decision Making MDM Narrative: Medical Decision Making: [age] female with 1 day of atraumatic right quadrant pain or urinary symptoms no symptoms otherwise. Not an abrupt onset no suggestion clinically ovarian torsion. Limited bedside digital sales manager ultrasound with no free pelvic fluid or mass no obvious adnexal mass or large cyst CT performed no signs of acute appendicitis though there is a fecalith. There was some cecal edema large stool burden Preliminary Favored Differential Diagnosis: Constipation, appendicitis, adnexal pathology among additional considered etiologies Testing Interpreted Independently: ?See below for details Radiology or Lab testing Results Reviewed: IMPRESSION: 1. Severe stool burden. No small bowel obstruction. 2. Appendicolith present without findings of acute appendicitis of the imaged appendix. 3. Mild fluid anterior to the cecum is nonspecific. Differential considerations include small and/or focal omental infarction. 4. Mild fluid in the pelvis nonspecific. 5. Wall thickening of the urinary bladder. 6. 2 mm low-density lesion in the left lobe liver is too small to characterize by imaging at this time. Please consider six-month follow-up with liver mass imaging. Consults: ?See below for details Independent Historians/External Chart Reviews: ?See below for details Social Determinants of Health Impacting MDM/Planning: ?See below for details Lab Data 02/19/25 14:26 02/19/25 14:26 Labs: Lab Results 02/19/25 02/19/25 Range/Units 14:26 17:41 WBC 9.0 (4.8-10.8) X10*3/uL RBC 4.68 (4.20-5.50) X10*6/uL Hgb 13.6 (12.0-16.0) g/dl Hct 39.7 (37.0-47.0) % MCV 84.8 (80.0-98.0) fL MCH 29.1 (27.0-33.0) pg MCHC 34.3 (31.0-35.0) g/dl RDW 12.8 (11.0-16.0) % Plt Count 126 L (160-400) X10*3/uL MPV 12.4 H (9.4-12.3) fL Immature Gran % (Auto) 0.6 H (0.0-0.4) % Neut % (Auto) 61.3 (45-73) % Lymph % (Auto) 29.8 (20-40) % [place] % (Auto) 4.1 (2-11) % Eos % (Auto) 2.9 (0-4) % Baso % (Auto) 1.3 (0-2) % Lymph # (Auto) 2.7 (1.2-4.9) X10*3/uL [place] # (Auto) 0.4 (0.1-1.2) X10*3/uL Eos # (Auto) 0.3 (0.0-0.4) X10*3/uL Baso # (Auto) 0.1 (0.0-0.2) X10*3/uL Abs Immat Gran (auto) 0.05 H (0.00-0.03) X10*3/uL Absolute Neuts (auto) 5.5 (2.0-8.3) x10*3/uL Absolute Nucleated RBC 0.000 (0.0-0.012) X10*3/uL Nucleated RBC % (auto) 0.0 (0.0-0.2) /100WBC Sodium 140 (135-145) mmol/L Potassium 3.8 (3.3-5.1) mmol/L Chloride 107 (96-108) mmol/L Carbon Dioxide 23 (22-29) mmol/L Anion Gap 14 (12-20) BUN 12 (9-16) mg/dL Creatinine 0.85 (0.5-1.4) mg/dL Estim Creat Clear Calc 95.9 Estimated GFR > 60 Random Glucose 96 (60-115) mg/dL Calcium 9.5 (8.4-10.2) mg/dL Magnesium 2.1 (1.6-2.6) mg/dL Total Bilirubin 0.4 (0.0-1.0) mg/dL AST 22 (5-31) U/L ALT 23 (0-31) U/L Alkaline Phosphatase 84 (39-117) U/L C-Reactive Protein 0.53 H (< or = 0.50) mg/dL Total Protein 7.5 (6.5-8.0) g/dL Albumin 5.0 (3.5-5.0) g/dL Lipase 33 (8-78) U/L Beta HCG, Quant < 2 mIU/mL Urine Color Yellow Urine Appearance Clear Urine pH 5.5 (5.0-9.0) Ur Specific [place] 1.010 (1.005-1.025) Urine Protein Negative (Neg-Trace) mg/dL Urine Glucose (UA) Negative (Negative) mg/dL Urine Ketones Trace (Negative) mg/dL Urine Blood Trace H (Negative) Urine Nitrite Negative (Negative) Ur Leukocyte Esterase Negative (Negative) Urine RBC 0-2 (0-2) /HPF Urine WBC 0-5 (0-5) /HPF Ur Squamous Epith Cells 0-2 (0-2) /HPF Urine Bacteria 1+ (None Seen) Hyaline Casts 0-2 (0-2) /LPF Medications Administered Discontinued Medications Generic Name Dose Route Start Last Admin Trade Name Freq PRN Reason Stop Dose Admin Sodium Chloride 1,000 mls @ 999 mls/hr 02/19/25 18:15 02/19/25 20:11 Ns IV 02/19/25 19:15 Infused .Q1H1M LIANA Infusion Iohexol 85 ml 02/19/25 18:03 02/19/25 18:03 Iohexol 350 Mg/Ml 100 Ml Infus..Btl IV 02/19/25 18:04 85 ml ONCE ONE Administration Discharge Plan Discharge Clinical Impression: Constipation, Liver nodule Patient Disposition: Home, Self-Care Instructions: Constipation (DC) Additional Instructions: DISCHARGE DIAGNOSES: You were evaluated for abdominal pain in the right lower quadrant there is no clear cause identified but there is some nonspecific findings such as fluid around the cecum a part of your large intestine and significant constipation that may be contributing to your pain. Small liver nodule needs to be followed up six-month liver imaging see radiology report below HISTORY OF PRESENTATION: ?Abdominal pain EMERGENCY DEPARTMENT COURSE,TESTS, TREATMENTS: While in the ED today labs CT limited digital sales manager bedside ultrasound of the pelvic structures and urinalysis performed. DISCHARGE MEDICATIONS: ?[We have made no changes to your regular medication regimen] FOLLOW-UP: ?Call your primary or general physician soon as possible to discuss your symptoms, your ED visit and to discuss follow up plans Call your PCP for follow up INSTRUCTIONS ?& RETURN PRECAUTIONS: If any symptoms change first call your primary physician, if it is after-hours your primary doctors office should have a provider street contractor you can speak with. If the symptoms are severe or very concerning to you then call 911 or return to the ED. CT result IMPRESSION: 1. Severe stool burden. No small bowel obstruction. 2. Appendicolith present without findings of acute appendicitis of the imaged appendix. 3. Mild fluid anterior to the cecum is nonspecific. Differential considerations include small and/or focal omental infarction. 4. Mild fluid in the pelvis nonspecific. 5. Wall thickening of the urinary bladder. 6. 2 mm low-density lesion in the left lobe liver is too small to characterize by imaging at this time. Please consider six-month follow-up with liver mass imaging. Bandar Larios MD Emergency Physician [facility] Prescriptions: New polyethylene glycol 3350 [Miralax] 17 gram/dose powder 17 g PO DAILY Qty: 119 0RF No Action trazodone 50 mg tablet 50 mg PO BEDTIME PRN norethindrone-e.estradiol-iron [ ()] 1.5 mg-30 mcg (21)/75 mg (7) tablet 1 tab PO DAILY cetirizine 10 mg tablet 10 mg PO DAILY PRN betamethasone, augmented 0.05 % cream topical buspirone 7.5 mg tablet 7.5 mg PO BID desvenlafaxine succinate 50 mg tablet extended release 24 hr 50 mg PO DAILY desvenlafaxine succinate 100 mg tablet extended release 24 hr 100 mg PO DAILY naltrexone 4.5 mg capsule PO .QD Wegovy 0.25 mg/0.5 mL pen injector 0.25 mg subcut QWEEK Qty: 2 1RF Rx Instructions: administer weeks 1 through 4 of therapy Interventions: ED Discharge Assessment Last Done: 02/19/25 20:10 Discharge Date/Time: 02/19/25 20:12 Print Language: Greenlandic
--- OUTSIDE RECORDS SUMMARY | 2025-02-19 14:29 | XMS_ITS | Continuity of Care Document ---
Author Organization [facility] Address [address], [address] [place] [address] Care Team Providers Care Manager Plant Name Role Phone ANAM HOOKS Primary Care Provider [phone] Assessment Encounter Date Assessment Date Assessment LastModified by Organization Details LastModified Time 12/07/2024 12/07/2024 Spent >50% of 30 minute nutrition visit discussing Nutrition Plan of Care christine Not available 12/07/2024 10:11:27 Plan of Treatment Reminders Order Date Submit Date Provider Last Modified By Organization Details Last Modified Time Details Appointments Nutrition Virtual FollowUp 2024 11:00A M JONI ZAPIEN RD Not available Not available Not available Lab None recorded. Referral None recorded. Procedures None recorded. Surgeries None recorded. Imaging None recorded. Medication Orders None recorded. Patient TargetsNo targets recorded. Patient Instructions Encounter Date Encounter Id Patient Instructions Last Modified By Organization Details Last Modified Time 12/07/2024 [id number] Dear Nevaeh, It was great to chat [...] can be helpful in between meals for satiety/fullness /cravings -Focus on getting good quality sleep every night- 7-9 hours Please let me know if you have any questions. With gratitude, Joni Zapien, MS, RDN, LDN christine Not available 12/08/2024 16:37:02 f/u 1 month [email or web address] Not available 10:11:31 Reason for Referral None Reported. Results Created Date Observation Date Name Description Value Unit Range Abnormal Flag Note LastModifiedBy Organization Detail LastModifiedTime 11/25/1911/24/2024 CBC (INCL UDES DIFF/ PLT) white blood cell count 7.3 thous and/u L 3.8-10 .8 normal Not Available [facility] [address], [address], 11/24/2024 21:18:05 11/25/1911/24/2024 CBC (INCL UDES DIFF/ PLT) red blood cell count 4.26 kristy on/uL 3.80-5 .10 normal Not Available [facility] [address], [address], 11/24/2024 21:18:05 11/25/19 25 11/24/2024 CBC (INCL UDES DIFF/ PLT) hemoglobin 12.8 g/dL 11.7-1 5.5 normal Not Available [facility] [address], [address], 11/24/2024 21:18:05 11/25/1911/24/2024 CBC (INCL UDES DIFF/ PLT) hematocrit 38.2 % 35.0-4 5.0 normal Not Available [facility] [address], [address], 11/24/2024 21:18:05 11/25/1911/24/2024 CBC (INCL UDES DIFF/ PLT) MCV 89.7 fL 80.0-1 00.0 normal Not Available [facility] [address] [place], [place], [address], 11/24/2024 21:18:05 11/25/19 25 11/24/2024 CBC (INCL UDES DIFF/ PLT) MCH 30.0 pg 27.0-3 3.0 normal Not Available [facility] [address] [place], [place], [address], 11/24/2024 21:18:05 11/25/19 25 11/24/2024 CBC (INCL UDES DIFF/ PLT) MCHC 33.5 g/dL 32.0-3 6.0 normal For adult s, a sligh t decre ase in the calcu lated MCHC value (in the range of 30 to 32 g/dL) is most likel y not clini gricelda signi ficradha t; say er, it shoul d be inter prete d with cauti on in corre latio n with other red cell deidra eters and the patie nt's clini duane condi tion. Not Available [facility] [address] [place], [place], [address], 11/24/2024 21:18:05 11/25/19 25 11/24/2024 CBC (INCL UDES DIFF/ PLT) RDW 13.0 % 11.0-1 5.0 normal Not Available [facility] [address] [place], [place], [address], 11/24/2024 21:18:05 11/25/19 25 11/24/2024 CBC (INCL UDES DIFF/ PLT) platelet count 122 thous and/u L 140-40 0 low Not Available [facility] [address] [place], [place], [address], 11/24/2024 21:18:05 11/25/19 25 11/24/2024 CBC (INCL UDES DIFF/ PLT) MPV 13.0 fL 7.5-12 .5 high Not Available [facility] [address], [place], [address], 11/24/2024 21:18:05 11/25/19 25 11/24/2024 CBC (INCL UDES DIFF/ PLT) absolute neutrophils 3949 cells /uL 1500-7 800 normal Not Available [facility] [address], [place], [address], 11/24/2024 21:18:05 11/25/19 25 11/24/2024 CBC (INCL UDES DIFF/ PLT) absolute lymphocytes 2562 cells /uL 850-39 00 normal Not Available [facility] [address], [place], [address], 11/24/2024 21:18:05 11/25/19 25 11/24/2024 CBC (INCL UDES DIFF/ PLT) absolute monocytes 423 cells /uL 200-95 0 normal Not Available [facility] [address], [place], [address], 11/24/2024 21:18:05 11/25/19 25 11/24/2024 CBC (INCL UDES DIFF/ PLT) absolute eosinophils 292 cells /uL 15-500 normal Not Available [facility] [address], [place], [address], 11/24/2024 21:18:05 11/25/19 25 11/24/2024 CBC (INCL UDES DIFF/ PLT) absolute basophils 73 cells /uL 0-200 normal Not Available [facility] [address], [place], [address], 11/24/2024 21:18:05 11/25/19 25 11/24/2024 CBC (INCL UDES DIFF/ PLT) neutrophils 54.1 % normal Not Available [facility] [address] [place], [address], 11/24/2024 21:18:05 11/25/19 25 11/24/2024 CBC (INCL UDES DIFF/ PLT) lymphocytes 35.1 % normal Not Available [facility] [address], [place], [address], 11/24/2024 21:18:05 11/25/19 25 11/24/2024 CBC (INCL UDES DIFF/ PLT) monocytes 5.8 % normal Not Available [facility] [address], [place], [address], 11/24/2024 21:18:05 11/25/19 25 11/24/2024 CBC (INCL UDES DIFF/ PLT) eosinophils 4.0 % normal Not Available [facility] [address], [place], [address], 11/24/2024 21:18:05 11/25/19 25 11/24/2024 CBC (INCL UDES DIFF/ PLT) basophils 1.0 % normal Not Available [facility] [address], [place], [address], 11/24/2024 21:18:05 Result Notes None recorded. Problems Name Problem SNOMED Code Status Onset Date Resolution Date Notes Provider Name and Address Organization Details Recorded Time Postpart um depressi on 94581579 Completed 201702/25/2018 Linn Dodd NP [address] [facility], [address], [place], [address] , [place] - [facility] 4 13:15:53 Chronic constipa tion 211944370 Active 2023 Saw GI, no w/u done. Linn Dodd NP [address] [facility], [address], [place], [address] , [place] [facility] 4 13:09:06 Depressi ve disorder 91098630 Active 2023 Linn Dodd NP [address] [place] [address] Avenue, [address], [place], [address] , [place] [facility] 4 13:11:30 Anxiety 66384153 Active 2023 Linn Dodd NP [address] [place] [address], [address], [place], [address] , [place] [facility] 4 13:11:37 Tinnitus 20182257 Active 2023 Linn Dodd NP [address] [place] [address] Avenue, [address], [place], [address] , [place] [facility] 4 13:14:32 Unintent ional weight gain 35163531484 4104 Active 2023 Linn Dodd NP [address] [place] [address], [address], [place], [address] , [place] [facility] 4 13:15:05 Fatigue 07290526 Active 2023 Linn Dodd NP [address] [place] [address] Avenue, [address], [place], [address] , [place] [facility] 4 13:19:19 Idiopath ic hypersom vipin 52644647937 07 Active 2023 Linn Dodd NP [address] [place] [address], [address], [place], [address] , [place] [facility] 4 13:19:55 Abdomina l bloating 398293789 Active 2023 Linn Dodd NP [address] [place] [address], [address], [place], [address] , [place] [facility] 4 13:21:09 Eczema 59199710 Active 2023 Linn Dodd NP [address], [address], [place], [address] , [place] [facility] 4 13:21:51 Seasonal allergic rhinitis 304067863 Active 2023 Linn Dodd NP [address] [place] [address], [address], [place], [address] , [place] - [facility] 4 13:22:00 Raynaud' s disease 334642718 Active 2023 Secondar y to eduardo villalobos Linn Dodd NP [address] [place] [address], [address], [place], [address] , [place] [facility] 4 13:38:52 History of alcoholi sm 993835542 Completed 202308/28/2023 Removal Reason: 10/2010 Linn Dodd NP [address] [place] [address], [address], [place], [address] , [place] [facility] 4 13:39:23 Loss of hair 392227378 Active 2023 Linn Dodd NP [address] [place] [address], [address], [place], [address] , [place] [facility] 4 14:18:35 Reduced libido 4408122 Active 2023 Linn Dodd NP [address] [place] [address], [address], [place], [address] , [place] [facility] 4 14:18:52 Vitamin D deficien cy 98729527 Active 2023 Linn Dodd NP [address] [place] [address], [address], [place], [address] , [place] [facility] 4 14:26:42 Gastroin testinal candidia sis 82821291 Active 2023 Linn Dodd NP [address] [place] [address], [address], [place], [address] , [place] [facility] 4 08:15:29 Tick-bor ne relapsin g fever 33224481 Active 2023 Linn Dodd NP [address] [place] [address], [address], [place], [address] , [place] [facility] 4 08:30:30 Infectio n by Bernardino salazar christiana 026824601 Active 2023 Linn Dodd NP [address] [place] [address], [place] [address], [place], [address] , [facility] 4 08:31:17 Chocolat e cyst of ovary 702820095 Active 2024 Possible endometr iosis DANILO Barth [address] [place] [address], [place] [address], [place], [address] , [facility] - [facility] 5 09:07:07 Thromboc ytopenic disorder 399913847 Active 2024 DANILO Barth [address] [place] [address], [place] [address], [place], [address] , [facility] 5 18:33:17 Problem Notes None recorded. Procedures Surgical History Date Name Laterality Status Provider Name and Address Organization Details Recorded Time 03/24/19 25 Date of Last Pap Smear completed DANILO Barth [address] [place] [address], [facility] [address], [place], [address], [facility] - [facility] 10/22/2024 09:07:47 03/24/19 20 Remove tonsils and adenoids completed Linn Dodd NP [address] [place] [address], [place] [address], [place], [address], [facility] 08/28/2023 13:44:12 Breast reduction completed Susana Dodd NP [address] [place] [address], [place] [address], [place], [address], [facility] 08/28/2023 13:43:24 excision of fibroadenoma of breast completed Linn Dodd NP [address] [place] [address], [place], [address], [facility] 08/28/2023 13:43:38 Imaging Results None recorded. Procedure Notes None recorded. Medical Equipment None Reported. Allergies Allergen ID Allergen Name Allergen Category Reaction Reaction Severity Criticality Documentation Date Start Date Code Code System Note Provider Name and Address Organization Details Recorded Time 8270 wheat preparati on food,medi cation Not available Not available Not available 08/28/2023 35689 52 RxNorm Linn Dodd NP [address] [facility], [address], [place], [address], [facility] - [facility] 4 13:21:18 9045 oats preparati on food Not available Not available Not available 08/28/2023 83028 1 RxNorm Linn Dodd NP [address] [facility], [facility] [address], [place], [address], [facility] - [facility] 4 13:21:23 9046 barley extract food Not available Not available Not available 08/28/2023 82453 66 RxNorm Linn Dodd NP [address] [facility], [address], [place], [address], [facility] - [facility] 4 13:21:33 Medications Name Sig Start Date Stop Date Status Note LastModified by Organization Details LastModified Time compounded medication Take 1 pill nightly 2024 active Not Available Not Available Not Avai lable compounded medication Take 1 pill (1.5mg) at [...] Available Not Available nystatin 500,000 unit tablet Take 2 tablets twice a day by oral route for 30 days. 2024 active Not Available Not Available Not Avai lable Diflucan 100 mg tablet Take 1 tablet [...] completed Not Available Not Available Not Available .530 (28) 1.5 mg-30 mcg (21)/75 mg (7) tablet TAKE 1 TABLET BY MOUTH EVERY DAY active Not Available Not Available No t Available lactulose 10 gram/15 mL oral solution AFTER COLLECTIN G YOUR FIRST SAMPLE OF THE TRIOSMART KIT, DRINK SINGLE DOSE OF LACTULOSE 15ML [...] Not Available Not Available Not Available Vitals None Recorded Social History Question Answer Notes LastModified by Storyful Details LastModified Time Tobacco Smoking Status Never Smoker Linn Dodd NP [address] [place] [address], [address], [place], [address], [place] - [facility] 08/28/2023 13:33:41 What Is Your Level Of Caffeine Consumption? Moderate 1 Celsius/da y [email or web address] Information not available 10/22/2024 What Type Of Diet Are You Following? REGULAR Information not available 08/28/2023 Ancestry/Ethn icity Citizen Of [place], [place], Ukrainian, Sweedish [email or web address] Information not available 08/28/2023 How Much Tobacco Do You Smoke? No [email or web address] Information not available 08/28/2023 How Many Years Have You Smoked Tobacco? 0 [email or web address] Information not available 08/28/2023 Sex: Unknown Functional Status Question Answer Note LastModified by [employer] Details LastModified Time What is your level of alcohol consumption? None [email or web address] Information not available 08/28/2023 Are you currently employed? 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 [email or web address] Information not available 08/28/2023 What is your exercise level? Occasional [email or web address] Information not available 08/28/2023 Mental Status None [...] ICD10 Code Diagnosis IMO Codes Diagnosis Note 28608 DANILO Barth Office [address], [address] [place] [address] 11/29/2024 07:43:57 11/30/2024 10:00:28 Chronic constipation 631271209 K59.09 11/29/24: Cont Mg Citrate, plan to discuss GI health at next visit: Check SIBO test, food sensitivit ies, [facility] 4: Will repeat Nystatin for 4 weeks and then start herbal antifungal (GSE).10/01: Will treat for tyron and follow up in 2 months.08/27: Will check Lyme testing, Nutritiona l deficienci es, comprehens claus stool evaluation , food sensitivit ies. 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 Will re-start treatment with Nystatin GSE d/t inability to tolerate Candibal and follow up.10/02/23 : Will start optimizing nutrition and nutritiona l deficienci es and follow up.08/28/23: Will check Lyme testing, Nutritiona l deficienci es, comprehens claus stool evaluation , food sensitivit ies. Abdominal bloating 47716 9008 R14.0 11/29/24: SIBO test negative. Avoid whey x 6 months. Cont Mg Citrate. Plan to discuss stool test at next appt.: Check SIBO test, food sensitivit ies, [facility], Humap: Appears to be slowly improving. Will 4: Will treat for tyron, remove food sensitivit ies, remove gluten, and follow up in 2 months.08/27: Will check Lyme testing, Nutritiona l deficienci es, comprehens claus stool evaluation , food sensitivit ies. Unintentio nal weight gain 6919080352 01174 R63.5 11/21/24: Check SIBO test, food sensitivit ies, [facility], Humap: Continue treatment for tyron. Will check in at next visit.10/01: Will treat for tyron, remove food sensitivit ies, remove gluten, and follow up in 2 months.08/27: Will check Lyme testing, Nutritiona l deficienci es, comprehens claus stool evaluation , food sensitivit ies. Tinnitus 33923978 H93.13 11/29/24: On/off, cont to monitor. Check Bartonella FISH 5: Check SIBO test, food sensitivit ies, [facility], Humap: Improved. Will continue to monitor.02/14: Will start optimizing nutrition and nutritiona l deficienci es and follow up.08/28/23: Will check Lyme testing, Nutritiona l deficienci es, comprehens claus stool evaluation , food sensitivit ies. Depressive disorder 1998 9007 F32.A 11/29/24: Tx cheryl tam, support adrenal fatigue. Start Inositol/E strobal. Check Bartonella FISH 5: Check SIBO test, food sensitivit ies, [facility], Humap: No improvemen t yet. Will monitor.02/14: Will start optimizing nutrition and nutritiona l deficienci es and follow up.08/28/23: Will check Lyme testing, Nutritiona l deficienci es, comprehens claus stool evaluation , food sensitivit ies. Fatigue 99163865 R53.83 11/29/24: Stage 4 adrenal fatigue. Start AdrenaPlus BID, Tx candidiasi s. Discussed stress management .11/21/24: Check SIBO test, food sensitivit ies, [facility], Humap: No improvemen t yet. Will monitor.02/14: Will start optimizing nutrition and nutritiona l deficienci es and follow up.08/28/23: Will check Lyme testing, Nutritiona l deficienci es, comprehens claus stool evaluation , food sensitivit ies. Chocolate cyst of ovary 611257196 N80.109 29264 11/29/24: Start Inositol, Estrobal: Has appointmen t with endometrio sis specialist in December 2024 Trent thyroiditis 21 054531 E06.3 95362 11/29/24: TPO 49, trial gluten free 5: Check SIBO test, food sensitivit ies, [facility], Humap Candidiasis 51556251 B37 .9 05488 11/29/24: SIBO negative, 3+ whey. Tyron IgM+ 5: Check SIBO test, food sensitivit ies, [facility], Humap: Will repeat Nystatin for 4 weeks and then start herbal antifungal (GSE).10/01: Will treat with Nystatin and then Candibal. Dysmenorrhea 602619596 N 94.6 95994 11/29/24: Start Inositol, Estrobal. Meet with Joni for support with insulin resistance . [address] [place] Office [address] [facility], [address] [place] [address] 12/07/2024 07:47:32 12/09/2024 09:50:37 Chronic constipation 867015915 K59.09 Pt has extensive history of constipati on; pt to optimize fiber/ hydration. Taking magnesium citrate Abdominal bloating 44947 9008 R14.0 Pt does not know what is bloating/ what is weight gain or endometrio sis. Discussing digestion and lifestyle Unintentio nal weight gain 2562858766 77481 R63.5 Working on balancing diet, encouragin g to increase physical movement Health Concerns Section Related Observation LastModified by Organization Detai ls LastModified Time None Recorded Concern Status LastModified by Organization Details LastModified Time None Recorded Payers Encounter Date Sequence Insurance Name Policy Number Policy [place] Covered Member ID [place] Member ID Guarantor Name 12/07/2024 1 [employer] [facility] ([place]) [id number] Bhupinder Horton [id number] Nevaeh Horton Notes Date Note Type Note Provider Name and Address Organization Details Recorded Time 025 text/ht ml The visit was conducted [...] staying away from dairy. 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 12/08/2024 16:38:15 OBGyn Episode No OBEpisode recorded.
--- OUTSIDE RECORDS SUMMARY | 2025-02-19 14:29 | XMS_ITS | Clinical Summary ---
Author Organization [facility] Address [address] [place] [address] Phone Care Team Providers Care Him Coder Name Role Phone Jing Coffey MD Primary [...] topic Medical Devices Not on file Insurance [employer]MINISTRATORS Care Teams Him Coder Relationship Specialty Start Date End Date Jing Coffey MD PCP - General Internal Medicine 08/10/18 Additional Source Comments The information contained in this document represents components of the legal health record. It is not the complete legal health record.[facility]
--- OUTSIDE RECORDS SUMMARY | 2025-02-19 14:29 | XMS_ITS | Encounter Summary ---
Author Organization [facility] Address [address] [address] Phone Care Team Providers Care Mail Distribution Scheme Examiner Name Role Phone Jing Coffey MD Primary Care Provider + Reason for Referral * Physical Therapy (Routine) - Closed Specialty Diagnoses / Procedures Referred By Contac t Referred To Contact Physical Therapy Diagnoses Urinary incontinence, unspecified type Pelvic pain Low back pain, unspecified back pain laterality, unspecified chronicity, with sciatica presence unspecified System, Provider Not In, PhD [id number] [place] [address] Phone: tel: Referral ID Status Reason Start Date Expiration Date Visits Re quested Visits Authorized [id number] Closed 09/25/2018 09/21/2019 30 30 Encounter Details Date Type Department Care Team (Latest Contact Info) Description 08/10/2018 Transcribe Orders [facility] [address] [place] [address] Jing Coffey MD [address] [place] [address] [phone] Urinary incontinence, unspecified type (Primary Dx); Pelvic [...] Date/Time Associated Diagnosis Comments AMB REFERRAL TO [facility] PHYSICAL THERAPY Routine 09/28/2018 1:18 PM EDT Urinary incontinence, unspecified type Pelvic pain Low back pain, unspecified back pain laterality, unspecified chronicity, with sciatica presence unspecified documented in this encounter Results * Ambulatory referral to [facility] Physical Therapy (09/28/2018 1:18 PM EDT) us Provider Not In System PhD AMB [facility] REFERRALS Fin al Result documented in this encounter Visit Diagnoses Diagnosis Urinary incontinence, unspecified type- Primary Pelvic pain Low back pain, unspecified back pain laterality, unspecified chronicity, with sciatica presence unspecified documented in this encounter Care Teams Mail Distribution Scheme Examiner Relationship Specialty Start Date End Date Jing Coffey MD PCP - General Internal Medicine 08/10/18 documented as of this encounter Additional Source Comments The information contained in this document represents components of the legal health record. It is not the complete legal health record.[facility]
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
--- OUTSIDE RECORDS SUMMARY | 2025-02-19 14:29 | XMS_ITS | Data Portability ---
Author Organization [facility] - Jose Carter, Telehealth Address [address] [facility] [address] [place] [address] Care Team Providers Care Senior Mobile Developer Name Role Phone NEVA ANAM Primary Care Provider [phone] Assessment Encounter Date Assessment Date Assessment LastModified [...] with the supervising physician, Dr. Rikki Leonard. kiaser Not available 12/24/2024 07:03:44 01/06/2025 01/06/2025 Spent >50% of 30 minute nutrition visit discussing Nutrition Plan of Care christine Not available 01/06/2025 12:14:05 02/01/2025 02/01/2025 Patient presented for follow up of labs. Studies ordered as below. Discussed plan with patient, who expressed understanding. Follow up as noted below. >50% of this 30 minute visit was spent counselling and coordinating care. This case was discussed with the supervising physician, Dr. Rikki Leonard. kaiser Not available 01/31/2025 21:41:47 02/03/2025 02/03/2025 Spent >50% of 30 minute nutrition visit discussing Nutrition Plan of Care christine Not available 02/03/2025 13:14:07 Plan of Treatment Reminders Order Date Submit Date Provider Last Modified By Organization Details Last Modified Time Details Appointments Nutrition Virtual FollowUp 2024 11:00A M JONI [address] Not available Not available Not available Lab None recorded. Referral None recorded. Procedures None recorded. Surgeries None recorded. Imaging None recorded. Medication Orders compounde d medicatio n 2024 025 [facility], [address], [place], [address], 02/01/2025 17:51:17 nystatin 500,000 unit tablet 2024 025 [id number], [address], [place], [id number], 02/01/2025 17:50:00 compounde d medicatio n 2024 025 [facility], [address] [place], [address], 12/24/2024 10:54:10 Patient Targets Encounter Date Encounter Id Patient Goals Patient Target Last Modified By Organization Details Last Modified Time 12/24/2024 [id number] 1.) Unexplained weight gain/desire to lose weight 2.) potential endometriosis 3.) constipation ejankauskas Not available 12/24/2024 07:02:26 02/01/2025 [id number] 1.) Unexplained weight gain/desire to lose weight 2.) potential endometriosis 3.) constipation ejankauskas Not available 01/31/2025 21:41:53 Patient Instructions Encounter Date Encounter Id Patient Instructions Last Modified By Organization Details Last Modified Time 12/07/2024 [id number] Dear Nevaeh, It was great to chat [...] can be helpful in between meals for satiety/fullness/ cravings -Focus on getting good quality sleep every night- 7-9 hours Please let me know if you have any questions. With gratitude, Joni Colmenares, MS, RDN, LDN [email or web address] Not available 12/08/2024 16:37:02 f/u 1 month [email or web address] Not available 10:11:31 12/24/2024 [id number] Dear Nevaeh, It was wonderful to see [...] pills so you are only taking 1. ([facility]) GI Health/Constipati on - GI Effects stool Test with H.PYLORI: [...] email - Let's have you meet with Joni for support and guidance! Hormone Health/Possible Endometriosis - Continue Inositol 1 scoop at night - Continue Estrobal 2 capsules daily - Nutrition that can support hormone health: green tea, cruciferous veggies - Consider trying acupuncture for support with hormone health Insulin Resistance - Let's have you meet with Joni for additional nutrition support - The inositol [...] stop. - It's great you're meeting with Joni! Adrenal Health - Continue AdrenaPlus 1-2 capsule [...] first History of Bartonella Infection - Hold Wishnix Bartonella FISH test ($220)- will discuss after stool test/improving constipation Down the line: - Consider LDN, will continue to discuss - Mold reassessment/margaret tment (let's first focus [...] today s exam. 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 Appropriate follow up and [...] indication unless started elsewhere. kaiser Not available 12/24/2024 07:02:31 01/06/2025 [id number] Dear Nevaeh, It was great to chat [...] can be helpful in between meals for satiety/fullness/ cravings -Focus on getting good quality sleep every night- 7-9 hours -I'm glad to hear that sleep is going well Please let me know if you have any questions. With gratitude, Joni Cabezas, MS, RDN, LDN [email or web address] Not available 01/07/2025 12:53:10 f/u 1 month [email or web address] Not available 12:14:09 02/01/2025 [id number] Dear Nevaeh, It was wonderful to see you today! Please see our visit summary below. Our plan is: Nutrition: Eat a more [...] what does this look like for you? Prescription: LDN 4.5mg (refill sent to [facility]) GI Health/Constipati on - Start Ultrabiotic 1 capsule before bed - Start GI Alive 1 scoop daily (3 months) - Goal 25-30g/daily: Increase fiber rich foods such as: artichokes, legumes like lentils, beans and chickpeas, whole grains like wild rice, oats, quinoa, millet, buckwheat, dark leafy greens, quincy, hemp, ground flaxseeds, fruit with skin on it like apples, berries, figs, prunes, pears - Aim to avoid Whey for 6 months - Continue Magnesium Citrate 1 capsule at night, increase up to max 6 capsules daily, for goal 1 BM daily. Decrease if need for loose stool. - If constipation persists, can try: Motility Activator ([employer]) 2 capsules at night - Good hydration: at least 64oz - Consider Biocidin if constipation persists. Candidiasis - Start Nystatin 2 capsules twice daily - Consider next: Undecylenic Acid 2 caps daily, Leslee Mortensen - Please see attached Tyron diet pdf Hormone Health/Possible Endometriosis - Inositol 1 scoop at night - Estrobal 2 capsules daily - Nutrition that can support hormone health: green tea, cruciferous veggies - Consider trying acupuncture for support with hormone health Insulin Resistance - Let's have you meet with Joni for additional nutrition support - The inositol [...] stop. - It's great you're meeting with Joni! Adrenal Health - Continue AdrenaPlus 1-2 capsule [...] LDN, will continue to discuss - Mold reassessment/margaret tment (let's first focus on improve regular bowel movements as this is important for detox) Please schedule a 30 minute follow up appointment in 4-6 weeks In gratitude, Delphine saab Not available 02/01/2025 17:49:07 Educated the patient on the treatment options and the diagnosis. Discussed the risks and the benefits of the treatment plan. Discussed alternative treatment options. Discussed the side effects of the medications and herbal preparations initiated at today s exam. Discussed the potential skilled nursing complications with treatment. Appropriate follow up and [...] indication unless started elsewhere. kaiser Not available 02/01/2025 09:06:27 02/03/2025 [id number] Dear Nevaeh, It was great to chat with you! Please see our visit summary below. Dairy free yogurt at [facility] Cultured Stuartilla Almondmi Yogurt Alternative So Delicious Vegan, Dairy Free Unsweetened Plain Coconut Yogurt Alternative [employer] Dairy Free Cashew & Coconut Milk Yogurt Fiber -Quincy seeds -mix 1-2 tbs into DF yogurt or oatmeal -Pamela fiber-https://www .[employer]/p/suphairts_a cacia_bulk_nog/bu yh-tenyahhvi-ubmu ix-wrg-2-tummy-fi madeleine-pouches/ Boost your fiber to 25-30g/ day. Below is a link with different fiber sources. If you add a fruit or veggie to each meal or snack, you are well on your way there! Here are some examples of foods you could add to your meals: Breakfast: add 1c raspberries (8g fiber) or 1 oz of quincy seeds (10g fiber) Lunch: add 1 cup greens (~1g fiber), 1c carrots (3g fiber), 1/2 c green beans (2g fiber) Dinner: add 1 cup broccoli (5g fiber) Snack 1: 1 apple (5g fiber), 1 oz almonds (3g fiber) https://www.[facility].org/healthy -lifestyle/nutrit iyk-iho-vvglmao-e ating/in-depth/hi kx-vsuwg-ppmug/az t-[id number] Protein- Aim for ~90-100g for now B-7:30am-Egg white-12g protein 1/2 cup L- Chomps, apple, cheese stick, nut butter, egg whites, almonds D-salmon, turkey, chicken sausage, jambalaya mix Breakfast (~7:30 am) cup egg whites + 2 whole eggs ~24 g protein 1 cup of berries for fiber, you could add a scoop of DF yogurt Optional- Add BFree Foods, Gluten Free Keto High Protein Carb Friendly Tortilla Wraps for 11 more grams of fiber and 8g fiber! Lunch (mid-day) Chomps meat stick ~10 1 2 g protein Cheese stick (if doing diary) ~6-8 g Almonds, say cup ~6-7 g Apple for fiber Dinner [place], turkey, chicken sausage, beef ~4-5oz 25-30g protein Peas, beans 1/2 cup ~7g protein Quinoa-1/2 cup cooked= 4g protein Easy access ning: We can try Lose it! If you would like to add me as a friend, my email connected to the account is [email or web address] (LOL) [place]- Inbody scan. Call to schedule, your first one is free. Please let me know if you have any questions. With gratitude, Joni Cabezas, MS, RDN, LDN [email or web address] Not available 02/03/2025 20:26:25 f/u 1 month [email or web address] Not available 13:14:11 Reason for Referral None Reported. Results Created Date Observation Date Name Description Value Unit Range Abnormal Flag Note LastModifiedBy Organization Detail LastModifiedTime 11/25/1911/24/2024 CBC (INCL UDES DIFF/ PLT) white blood cell count 7.3 thous and/u L 3.8-10 .8 normal Not Available [facility] [address], [address], 11/24/2024 21:18:05 11/25/19 25 11/24/2024 CBC (INCL UDES DIFF/ PLT) red blood cell count 4.26 kristy on/uL 3.80-5 .10 normal Not Available [facility] [address], [address], 11/24/2024 21:18:05 11/25/19 25 11/24/2024 CBC (INCL UDES DIFF/ PLT) hemoglobin 12.8 g/dL 11.7-1 5.5 normal Not Available [facility] [address], [address], 11/24/2024 21:18:05 11/25/1911/24/2024 CBC (INCL UDES DIFF/ PLT) hematocrit 38.2 % 35.0-4 5.0 normal Not Available [facility] [address], [address], 11/24/2024 21:18:05 11/25/19 25 11/24/2024 CBC (INCL UDES DIFF/ PLT) MCV 89.7 fL 80.0-1 00.0 normal Not Available [facility] [address] [place], [address], 11/24/2024 21:18:05 11/25/19 25 11/24/2024 CBC (INCL UDES DIFF/ PLT) MCH 30.0 pg 27.0-3 3.0 normal Not Available [facility] [place] [facility] [address] [place], [place], [address], 11/24/2024 21:18:05 11/25/19 25 11/24/2024 CBC (INCL UDES DIFF/ PLT) MCHC 33.5 g/dL 32.0-3 6.0 normal For adult s, a sligh t decre ase in the calcu lated MCHC value (in the range of 30 to 32 g/dL) is most likel y not clini gricelda signi fican t; say er, it shoul d be inter prete d with cauti on in corre lat n with other red cell deidra eters and the patie nt's clini duane condi tion. Not Available [facility] [place] [facility] [address] [place], [place], [address], 11/24/2024 21:18:05 11/25/19 25 11/24/2024 CBC (INCL UDES DIFF/ PLT) RDW 13.0 % 11.0-1 5.0 normal Not Available [facility] [place] [address] [place], [place], [address], 11/24/2024 21:18:05 11/25/1911/24/2024 CBC (INCL UDES DIFF/ PLT) platelet count 122 thous and/u L 140-40 0 low Not Available [facility] [place] [facility] [address] [place], [place], [address], 11/24/2024 21:18:05 11/25/19 25 11/24/2024 CBC (INCL UDES DIFF/ PLT) MPV 13.0 fL 7.5-12 .5 high Not Available [facility] [place] [facility] [address], [place], [address], 11/24/2024 21:18:05 11/25/19 25 11/24/2024 CBC (INCL UDES DIFF/ PLT) absolute neutrophils 3949 cells /uL 1500-7 800 normal Not Available [facility] [place] [facility] [address], [place], [address], 11/24/2024 21:18:05 11/25/19 25 11/24/2024 CBC (INCL UDES DIFF/ PLT) absolute lymphocytes 2562 cells /uL 850-39 00 normal Not Available [facility] [place] [facility] [address], [place], [address], 11/24/2024 21:18:05 11/25/19 25 11/24/2024 CBC (INCL UDES DIFF/ PLT) absolute monocytes 423 cells /uL 200-95 0 normal Not Available [facility] [address], [place], [address], 11/24/2024 21:18:05 11/25/19 25 11/24/2024 CBC (INCL UDES DIFF/ PLT) absolute eosinophils 292 cells /uL 15-500 normal Not Available [facility] [address], [place], [address], 11/24/2024 21:18:05 11/25/19 25 11/24/2024 CBC (INCL UDES DIFF/ PLT) absolute basophils 73 cells /uL 0-200 normal Not Available [facility] [address], [place], [address], 11/24/2024 21:18:05 11/25/19 25 11/24/2024 CBC (INCL UDES DIFF/ PLT) neutrophils 54.1 % normal Not Available [facility] [place] [address], [place], [address], 11/24/2024 21:18:05 11/25/19 25 11/24/2024 CBC (INCL UDES DIFF/ PLT) lymphocytes 35.1 % normal Not Available [facility] [address], [address], 11/24/2024 21:18:05 11/25/19 25 11/24/2024 CBC (INCL UDES DIFF/ PLT) monocytes 5.8 % normal Not Available [facility] [place] [address], [address], 11/24/2024 21:18:05 11/25/19 25 11/24/2024 CBC (INCL UDES DIFF/ PLT) eosinophils 4.0 % normal Not Available [facility] [address], [address], 11/24/2024 21:18:05 11/25/19 25 11/24/2024 CBC (INCL UDES DIFF/ PLT) basophils 1.0 % normal Not Available [facility] [address], [address], 11/24/2024 21:18:05 Result Notes None recorded. Problems Name Problem SNOMED Code Status Onset Date Resolution Date Notes Provider Name and Address Organization Details Recorded Time Postpart um depressi on 93695761 Completed 201702/25/2018 Linn Dodd NP [address] [place] [address], [address], [place], [address] , [place] - [facility] 4 13:15:53 Chronic constipa tion 881589948 Active 2023 Saw GI, no w/u done. Linn Dodd NP [address] [place] [address], [address], [place], [address] , [place] - [facility] 4 13:09:06 Depressi ve disorder 11087838 Active 2023 Linn Dodd NP [address] [place] [address], [address], [place], [address] , [place] - [facility] 4 13:11:30 Anxiety 20423380 Active 2023 Linn Dodd NP [address] [place] [address], [address], [place], [address] , [place] [facility] 4 13:11:37 Tinnitus 64289196 Active 2023 Linn Dodd NP [address] [place] [address], [address], [place], [address] , [place] [facility] 4 13:14:32 Unintent ional weight gain 89375901820 4104 Active 2023 Linn Dodd NP [address] [place] [address], [address], [place], [address] , [place] [facility] 4 13:15:05 Fatigue 57342409 Active 2023 Linn Dodd NP [address] [place] [address], [address], [place], [address] , [place] [facility] 4 13:19:19 Idiopath ic hypersom vipin 06470122114 07 Active 2023 Linn Dodd NP [address] [place] [address], [address], [place], [address] , [place] [facility] 4 13:19:55 Abdomina l bloating 686460986 Active 2023 Linn Dodd NP [address] [place] [address], [address], [place], [address] , [place] [facility] 4 13:21:09 Eczema 57871165 Active 2023 Linn Dodd NP [address] [place] [address], [address], [place], [address] , [place] [facility] 4 13:21:51 Seasonal allergic rhinitis 421930953 Active 2023 Linn Dodd NP [address] [place] [address], [address], [place], [address] , [place] - [facility] 4 13:22:00 Raynaud' s disease 562159268 Active 2023 Secondar y to frostnaila e Linn Dodd NP [address] [place] [address], [address], [place], [address] , [place] - [facility] 4 13:38:52 History of alcoholi sm 865127356 Completed 202308/28/2023 Removal Reason: 10/2010 Linn Dodd NP [address] [place] [address], [address], [place], [address] , [place] - [facility] 4 13:39:23 Loss of hair 335059308 Active 2023 Linn Dodd NP [address] [place] [address], [address], [place], [address] , [place] - [facility] 4 14:18:35 Reduced libido 9908602 Active 2023 Linn Dodd NP [address] [place] [address], [address], [place], [address] , [place] - [facility] 4 14:18:52 Vitamin D deficien cy 31992726 Active 2023 Linn Dodd NP [address] [place] [address], [address], [place], [address] , [place] - [facility] 4 14:26:42 Gastroin testinal candidia sis 13609051 Active 2023 Linn Dodd NP [address] [place] [address], [address], [place], [address] , [place] - [facility] 4 08:15:29 Tick-bor ne relapsin g fever 37607374 Active 2023 Linn Dodd NP [address] [place] [address], [address], [place], [address] , [place] - [facility] 4 08:30:30 Infectio n by Bartonel la bacillif ormis 783324484 Active 2023 Linn Dodd NP [address] [place] [address], [address], [place], [address] , [facility] - [facility] 4 08:31:17 Chocolat e cyst of ovary 330988956 Active 2024 Possible endometr iosis DANILO Barth [address] [place] [address], [address], [place], [address] , [facility] 5 09:07:07 Thromboc ytopenic disorder 856554322 Active 2024 DANILO Barth [address] [place] [address], [address], [place], [address] , [facility] 5 18:33:17 Problem Notes None recorded. Procedures Surgical History Date Name Laterality Status Provider Name and Address Organization Details Recorded Time 03/24/19 25 Date of Last Pap Smear completed DANILO Barth [address] [place] [address], [address], [place], [address], [facility] 10/22/2024 09:07:47 03/24/19 20 Remove tonsils and adenoids completed Linn Dodd NP [address] [place] [address], [address], [place], [address], [facility] 08/28/2023 13:44:12 Breast reduction completed Susana Dodd NP [address] [place] [address], [place] [address], [place], [address], [facility] - [facility] 08/28/2023 13:43:24 excision of fibroadenoma of breast completed Linn Dodd NP [address] [place] [address], [address], [place], [address], [facility] 08/28/2023 13:43:38 Imaging Results None recorded. Procedure Notes None recorded. Medical Equipment None Reported. Allergies Allergen ID Allergen Name Allergen Category Reaction Reaction Severity Criticality Documentation Date Start Date Code Code System Note Provider Name and Address Organization Details Recorded Time 9044 wheat preparati on food,medi cation Not available Not available Not available 08/28/2023 80260 52 RxNorm Linn Dodd NP [address] [facility], [address], [place], [address], [facility] - [facility] 4 13:21:18 9045 oats preparati on food Not available Not available Not available 08/28/2023 54915 1 RxNorm Linn Dodd NP [address] [facility], [address], [place], [address], [facility] - [facility] 4 13:21:23 9046 barley extract food Not available Not available Not available 08/28/2023 74824 66 RxNorm Linn Dodd NP [address] [facility], [address], [place], [address], [facility] - [facility] 4 13:21:33 Medications Name Sig Start [...] Updated DateTime 12/24/2024 165.1 cm DANILO Barth [address] [facility], [address], [place], [address], [place] - [facility] 12/24/2024 10:08:17 Date Recorded Body height Provider Name an d Address Organization Details Last Updated DateTime 02/01/2025 165.1 cm DANILO Barth [address] [facility], [address], [place], [address], [place] - [facility] 02/01/2025 07:36:44 Social History Question Answer Notes LastModified by MustHaveMenus Details LastModified Time Tobacco Smoking Status Never Smoker Linn Dodd NP [address] [facility], [address], [place], [address], [place] - [facility] 08/28/2023 13:33:41 What Is Your Level Of Caffeine Consumption? Moderate 1 Celsius/da y [email or web address] Information not available 10/22/2024 What Type Of Diet Are You Following? REGULAR [email or web address] Information not available 08/28/2023 Ancestry/Ethn icity Maldivian, Greenlandic [place], [place]uran, Sweedish [email or web address] Information not available 08/28/2023 How Much Tobacco Do You Smoke? No Information not available 08/28/2023 How Many Years Have You Smoked Tobacco? 0 [email or web address] Information not available 08/28/2023 Sex: Unknown Functional Status Question Answer Note LastModified by Organizat ion Details LastModified Time What is your level of alcohol consumption? None [email or web address] Information not available 08/28/2023 Are you currently employed? 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 [email or web address] Information not available 08/28/2023 What is your exercise level? Occasional [email or web address] Information not available 08/28/2023 Mental Status None [...] ICD10 Code Diagnosis IMO Codes Diagnosis Note 60172 Delbert Leonard MD [facility] [address] [place] [address] 08/28/2023 13:05:10 08/28/2023 14:37:59 Chronic constipation 799587673 K59.09 08/28/23: Will check Lyme testing, Nutritiona l deficienci es, comprehens calus stool evaluation , food sensitivit ies. 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 Abdominal bloating 77115 9008 R14.0 08/28/23: Will check Lyme testing, Nutritiona l deficienci es, comprehens claus stool evaluation , food sensitivit ies. Unintentio nal weight gain 4244349544 61119 R63.5 08/28/23: Will check Lyme testing, Nutritiona l deficienci es, comprehens claus stool evaluation , food sensitivit ies. Tinnitus 97409692 H93.13 08/28/23: Will check Lyme testing, Nutritiona l deficienci es, comprehens claus stool evaluation , food sensitivit ies. Depressive disorder 3548 9007 F32.A 08/28/23: Will check Lyme testing, Nutritiona l deficienci es, comprehens claus stool evaluation , food sensitivit ies. Loss of hair 673470040 L 65.9 08/28/23: Will check Lyme testing, Nutritiona l deficienci es, comprehens claus stool evaluation , food sensitivit ies. Fatigue 48396579 R53.83 08/28/23: Will check Lyme testing, Nutritiona l deficienci es, comprehens claus stool evaluation , food sensitivit ies. Vitamin D deficiency 347 09433 E55.9 08/28/23: Will check Lyme testing, Nutritiona l deficienci es, comprehens claus stool evaluation , food sensitivit ies. Family his tory of diabetes mellitus 257366440 Z83.3 08/28/23: Will check Lyme testing, Nutritiona l deficienci es, comprehens claus stool evaluation , food sensitivit ies. 15439 Delbert Leonard MD [facility] [address] [place] [address] 10/02/2023 07:51:22 10/02/2023 09:30:23 Chronic constipation 060294880 K59.09 10/02/23: Will treat for tyron and follow up in 2 months.08/27: Will check Lyme testing, Nutritiona l deficienci es, comprehens claus stool evaluation , food sensitivit ies. Idiopathic hypersomnia 4007687743 107 G47.11 10/02/23: Will start optimizing nutrition and nutritiona l deficienci es and follow up.08/28/23: Will check Lyme testing, Nutritiona l deficienci es, comprehens claus stool evaluation , food sensitivit ies. Abdominal bloating 44048 9008 R14.0 10/02/23: Will treat for tyron, remove food sensitivit ies, remove gluten, and follow up in 2 months.08/27: Will check Lyme testing, Nutritiona l deficienci es, comprehens claus stool evaluation , food sensitivit ies. Unintentio nal weight gain 0580190775 96886 R63.5 10/02/23: Will treat for tyron, remove food sensitivit ies, remove gluten, and follow up in 2 months.08/27: Will check Lyme testing, Nutritiona l deficienci es, comprehens claus stool evaluation , food sensitivit ies. Tinnitus 66491113 H93.13 10/02/23: Will start optimizing nutrition and [...] claus stool evaluation , food sensitivit ies. Loss of hair [id number] L 65.9 10/02/23: Will start optimizing nutrition and nutritiona l deficienci es and follow up.08/28/23: Will check Lyme testing, Nutritiona l deficienci es, comprehens claus stool evaluation , food sensitivit ies. Fatigue 56641344 R53.83 10/02/23: Will start optimizing nutrition and nutritiona l deficienci es and follow up.08/28/23: Will check Lyme testing, Nutritiona l deficienci es, comprehens claus stool evaluation , food sensitivit ies. Gastrointe stinal candidiasis 08455845 B37.82 10/02/23: Will treat with Nystatin and then Candibal. 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 boulardi. Pt understood and agreed to hold off until nutritiona l deficienci es and thyroid are optimized. 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 boulardi. Pt understood and agreed to hold off until nutritiona l deficienci es and thyroid are optimized. [address] [place] [facility] [address] [place] [address] 10/17/2023 08:02:04 10/20/2023 08:07:17 Chronic constipation 888663698 K59.09 Pt has extensive history of constipati on; pt to increase physical movement, optimize fiber, and hydration Abdominal bloating 53839 9008 R14.0 Working on tyron treatment, remove food sensitivit ies, remove gluten Unintentio nal weight gain 0360861380 14462 R63.5 Pt being treated for tyron, working on balancing diet, encouragin g to increase physical movement Fatigue 21966197 R53.83 Will start optimizing nutrition and creating balanced meals Gastrointe stinal candidiasis 38221647 B37.82 pt on supplement s to help with tyron; emphasis on low sugar foods 16418 Delbert Leonard MD [place] [facility] [address] [place] [address] 11/13/2023 07:38:58 11/13/2023 09:14:45 Chronic constipation 114058572 K59.09 11/13/23: Will repeat Nystatin for 4 weeks and then start herbal antifungal (GSE).10/01: Will treat for tyron and follow up in 2 months.08/27: Will check Lyme testing, Nutritiona l deficienci es, comprehens claus stool evaluation , food sensitivit ies. Idiopathic hypersomnia 0082824615 107 G47.11 11/13/23: Improved with yeast treatment. Will re-start treatment with Nystatin GSE d/t inability to tolerate Candibal and follow up.10/02/23 : Will start optimizing nutrition and nutritiona l deficienci es and follow up.08/28/23: Will check Lyme testing, Nutritiona l deficienci es, comprehens claus stool evaluation , food sensitivit ies. Abdominal bloating 30976 9008 R14.0 11/13/23: Appears to be slowly improving. Will 4: Will treat for tyron, remove food sensitivit ies, remove gluten, and follow up in 2 months.08/27: Will check Lyme testing, Nutritiona l deficienci es, comprehens claus stool evaluation , food sensitivit ies. Unintentio nal weight gain 1195489575 02322 R63.5 11/13/23: Continue treatment for tyron. Will check in at next visit.10/01: Will treat for tyron, remove food sensitivit ies, remove gluten, and follow up in 2 months.08/27: Will check Lyme testing, Nutritiona l deficienci es, comprehens claus stool evaluation , food sensitivit ies. Tinnitus 55841018 H93.13 11/13/23: Improved. Will continue to monitor.02/14: Will start optimizing nutrition and nutritiona l deficienci es and follow up.08/28/23: Will check Lyme testing, Nutritiona l deficienci es, comprehens claus stool evaluation , food sensitivit ies. Depressive disorder 3548 9007 F32.A 11/13/23: No improvemen t yet. Will monitor.02/14: Will start optimizing nutrition and nutritiona l deficienci es and follow up.08/28/23: Will check Lyme testing, Nutritiona l deficienci es, comprehens claus stool evaluation , food sensitivit ies. Loss of hair 343589543 L 65.9 11/13/23: No improvemen t yet. Will monitor.02/14: Will start optimizing nutrition and nutritiona l deficienci es and follow up.08/28/23: Will check Lyme testing, Nutritiona l deficienci es, comprehens claus stool evaluation , food sensitivit ies. Fatigue 79753873 R53.83 11/13/23: No improvemen t yet. Will monitor.02/14: Will start optimizing nutrition and nutritiona l deficienci es and follow up.08/28/23: Will check Lyme testing, Nutritiona l deficienci es, comprehens claus stool evaluation , food sensitivit ies. Gastrointe stinal candidiasis 35062716 B37.82 11/13/23: Will repeat Nystatin for 4 weeks and then start herbal antifungal (GSE).10/01: Will treat with Nystatin and then Candibal. [address] [place] [facility] [address] [place] [address], [address] [place] [address] 11/17/2023 07:40:55 11/17/2023 12:03:07 Chronic constipation 231567460 K59.09 11/17/23: Pt has extensive history of constipati on; pt to optimize fiber/ hydration and avoid food sensitivit ies Abdominal bloating 19068 9008 R14.0 11/17/23: Working on tyron treatment, remove food sensitivit ies, remove gluten; slight improvemen t Unintentio nal weight gain 4265512752 32449 R63.5 11/17/23 Pt being treated for tyron, working on balancing diet, encouragin g to increase physical movement Fatigue 58150162 R53.83 11/17/23: Pt on tyron protocol and continuing to avoid food sensitivit ies; saw brief improvemen ts, but backslidin g slightly now Gastrointe stinal candidiasis 47779855 B37.82 11/17/23: pt on supplement s to help with tyron; emphasis on low sugar foods [address] [place] [facility] [address], [address] [place] [address] 01/05/2024 07:34:05 01/06/2024 07:52:17 Chronic constipation 196172870 K59.09 11/17/23: Pt has extensive history of constipati on; pt to optimize fiber/ hydration and avoid food sensitivit ies1 4: Pt experienci ng difficulty following structure in diet and uncertain of bowel habits Abdominal bloating 16961 9008 R14.0 11/17/23: Working on tyron treatment, remove food sensitivit ies, remove gluten; slight improvemen t1: Pt did another round of abx, has been taking candibal- taking 1 2x/day. Bloating still a challenge Unintentio nal weight gain 3083071066 47609 R63.5 11/17/23 Pt being treated for tyron, working on balancing diet, encouragin g to increase physical [id number] /14/24: High stress currently; discussed small goals and heavy metals Gastrointe stinal candidiasis 25791075 B37.82 11/17/23: pt on supplement s to help with tyron; emphasis on low sugar foods01/04: still working through candibal supplement s [address], [address] [place] [address] 10/22/2024 08:27:03 10/22/2024 14:21:42 Chronic constipation 098461820 K59.09 11/21/24: Check SIBO test, food sensitivit ies, [facility] 4: Will repeat Nystatin for 4 weeks and then start herbal antifungal (GSE).10/01: Will treat for tyron and follow up in 2 months.6/6 /24: Will check Lyme testing, Nutritiona l deficienci es, comprehens claus stool evaluation , food sensitivit ies. Idiopathic hypersomnia 3124874472 107 G47.11 11/21/24: Check SIBO test, food sensitivit ies, [facility] 4: Improved with yeast treatment. Will re-start treatment with Nystatin GSE d/t inability to tolerate Candibal and follow up.10/02/23 : Will start optimizing nutrition and nutritiona l deficienci es and follow up.08/28/23: Will check Lyme testing, Nutritiona l deficienci es, comprehens claus stool evaluation , food sensitivit ies. Abdominal bloating 53910 9008 R14.0 11/21/24: Check SIBO test, food sensitivit ies, [facility], Humap: Appears to be slowly improving. Will 4: Will treat for tyron, remove food sensitivit ies, remove gluten, and follow up in 2 months.08/27: Will check Lyme testing, Nutritiona l deficienci es, comprehens claus stool evaluation , food sensitivit ies. Unintentio nal weight gain 2891406247 77644 R63.5 11/21/24: Check SIBO test, food sensitivit ies, [facility], Humap: Continue treatment for tyron. Will check in at next visit.10/01: Will treat for tyron, remove food sensitivit ies, remove gluten, and follow up in 2 months.08/27: Will check Lyme testing, Nutritiona l deficienci es, comprehens claus stool evaluation , food sensitivit ies. Tinnitus 48436236 H93.13 11/21/24: Check SIBO test, food sensitivit ies, [facility], Humap: Improved. Will continue to monitor.02/14: Will start optimizing nutrition and nutritiona l deficienci es and follow up.08/28/23: Will check Lyme testing, Nutritiona l deficienci es, comprehens claus stool evaluation , food sensitivit ies. Depressive disorder 0572 9007 F32.A 11/21/24: Check SIBO test, food sensitivit ies, [facility], Humap: No improvemen t yet. Will monitor.02/14: Will start optimizing nutrition and nutritiona l deficienci es and follow up.08/28/23: Will check Lyme testing, Nutritiona l deficienci es, comprehens claus stool evaluation , food sensitivit ies. Fatigue 28921607 R53.83 11/21/24: Check SIBO test, food sensitivit ies, [facility], Humap: No improvemen t yet. Will monitor.02/14: Will start optimizing nutrition and nutritiona l deficienci es and follow up.08/28/23: Will check Lyme testing, Nutritiona l deficienci es, comprehens claus stool evaluation , food sensitivit ies. Gastrointe stinal candidiasis 62684720 B37.82 11/21/24: Check SIBO test, food sensitivit ies, [facility], Humap: Will repeat Nystatin for 4 weeks and then start herbal antifungal (GSE).10/01: Will treat with Nystatin and then Candibal. Chocolate cyst of ovary 737570955 N80.109 36547 10/18/24: Jagdish thyroiditis 21 304007 E06.3 26088 11/21/24: Check SIBO test, food sensitivit ies, [facility], [facility]ap [address] [facility] [address] [facility], [address] [place] [address] 11/29/2024 07:43:57 11/30/2024 10:00:28 Chronic constipation 931788938 K59.09 11/29/24: Cont Mg Citrate, plan to discuss GI health at next visit: Check SIBO test, food sensitivit ies, [facility] 4: Will repeat Nystatin for 4 weeks and then start herbal antifungal (GSE).10/01: Will treat for tyron and follow up in 2 months.08/27: Will check Lyme testing, Nutritiona l deficienci es, comprehens claus stool evaluation , food sensitivit ies. Idiopathic hypersomnia 6751091459 107 G47.11 11/29/24: Tx candidiasi s, plan [...] evaluation , food sensitivit ies. Abdominal bloating 61488 9008 R14.0 11/29/24: SIBO test negative. Avoid [...] food sensitivit ies. Unintentio nal weight gain 4610763214 51525 R63.5 11/21/24: Check SIBO test, food sensitivit ies, [facility], Humap: Continue treatment for tyron. Will check in at next visit.10/01: Will treat for tyron, remove food sensitivit ies, remove gluten, and follow up in 2 months.08/27: Will check Lyme testing, Nutritiona l deficienci es, comprehens claus stool evaluation , food sensitivit ies. Tinnitus 53073663 H93.13 11/29/24: On/off, cont to monitor. Check Bartonella FISH 5: Check SIBO test, food sensitivit ies, [facility], Humap: Improved. Will continue to monitor.02/14: Will start optimizing nutrition and nutritiona l deficienci es and follow up.08/28/23: Will check Lyme testing, Nutritiona l deficienci es, comprehens claus stool evaluation , food sensitivit ies. Depressive disorder 3548 9007 F32.A 11/29/24: Tx cheryl tam, support adrenal fatigue. Start Inositol/E strobal. Check Bartonella FISH 5: Check SIBO test, food sensitivit ies, [facility], Humap: No improvemen t yet. Will monitor.02/14: Will start optimizing nutrition and nutritiona l deficienci es and follow up.08/28/23: Will check Lyme testing, Nutritiona l deficienci es, comprehens claus stool evaluation , food sensitivit ies. Fatigue 72518611 R53.83 11/29/24: Stage 4 adrenal fatigue. Start AdrenaPlus BID, Tx cheryl tam. Discussed stress management .11/21/24: Check SIBO test, food sensitivit ies, [facility], Humap: No improvemen t yet. Will monitor.02/14: Will start optimizing nutrition and nutritiona l deficienci es and follow up.08/28/23: Will check Lyme testing, Nutritiona l deficienci es, comprehens claus stool evaluation , food sensitivit ies. Chocolate cyst of ovary 029637144 N80.109 99827 11/29/24: Start Inositol, Estrobal: Has appointmen t with endometrio sis specialist in December 2024 Jagdish thyroiditis 21 363557 E06.3 96012 11/29/24: TPO 49, trial gluten free 5: Check SIBO test, food sensitivit ies, [facility], Humap Candidiasis 51061637 B37 .9 17164 11/29/24: SIBO negative, 3+ whey. Tyron IgM+ 5: Check SIBO test, food sensitivit ies, [facility], Humap: Will repeat Nystatin for 4 weeks and then start herbal antifungal (GSE).10/01: Will treat with Nystatin and then Candibal. Dysmenorrhea 963023137 N 94.6 82243 11/29/24: Start Inositol, Estrobal. Meet with Joni for support with insulin resistance . [address] [place] [facility] [address], [address] [place] [address] 12/07/2024 07:47:32 12/09/2024 09:50:37 Chronic constipation 273312282 K59.09 Pt has extensive history of constipati on; pt to optimize fiber/ hydration. Taking magnesium citrate Abdominal bloating 23849 9008 R14.0 Pt does not know what is bloating/ what is weight gain or endometrio sis. Discussing digestion and lifestyle Unintentio nal weight gain 6383130170 55369 R63.5 Working on balancing diet, encouragin g to increase physical movement [address] [address] [place] [facility] [address], [address] [place] [address] 12/24/2024 09:48:33 12/24/2024 11:00:57 Chronic constipation 803696975 K59.09 12/24/24: Minimal improvemen t with Mg [...] evaluation , food sensitivit ies. Idiopathic hypersomnia 5852784443 107 G47.11 12/24/24: Improved minimally, relying on [...] evaluation , food sensitivit ies. Abdominal bloating 31920 9008 R14.0 12/24/24: Minimal improvemen t with Mg Citrate, about to be at 5 cap daily. SIBO negative. Check stool test. Start MCT oil. May be d/t inflammati on d/t possible endometrio sis. Limits gluten. Met with joni.: SIBO test negative. Avoid whey x 6 [...] food sensitivit ies. Unintentio nal weight gain 3638673880 78530 R63.5 12/24/24: Met with joni- eats pretty healthy. Focus on treating underlying sources [...] stool evaluation , food sensitivit ies. Tinnitus 80661690 H93.13 11/29/24: On/off, cont to monitor. Check Bartonella FISH 5: Check SIBO test, food sensitivit ies, [facility], Humap: Improved. Will continue to monitor.02/14: Will start optimizing nutrition and nutritiona l deficienci es and follow up.08/28/23: Will check Lyme testing, Nutritiona l deficienci es, comprehens claus stool evaluation , food sensitivit ies. Depressive disorder 9508 9007 F32.A 12/24/24: Cont current plan, will monitor.11/29/24: Tx antonii s, support adrenal fatigue. Start Inositol/E strobal. Check Bartonella FISH 5: Check SIBO test, food sensitivit ies, [facility], Humap: No improvemen t yet. Will monitor.02/14: Will start optimizing nutrition and nutritiona l deficienci es and follow up.08/28/23: Will check Lyme testing, Nutritiona l deficienci es, comprehens claus stool evaluation , food sensitivit ies. Fatigue 22519482 R53.83 12/24/24: Cont below plan. Check stool [...] claus stool evaluation , food sensitivit ies. Candidiasis 88627863 B37 .9 40171 12/24/24: Completed diflucan, didn't notice any changes. [...] and then Candibal. Chocolate cyst of ovary 907922677 N80.109 08666 12/24/24: Meets with specialist next week, continue inositol/e strobal11/29: Start Inositol, Estrobal: Has appointmen t with endometrio sis specialist in December 2024 Jagdish thyroiditis 21 736482 E06.3 06780 12/24/24: Cont gluten free, start LD11/29/24: TPO 49, trial gluten free 5: Check SIBO test, food sensitivit ies, [facility], [facility] Dysmenorrhea 391562985 N 94.6 46802 12/24/24: Continue Inositol, Estrobal. Will follow up appt with endometrio sis specialist on 12/29. 5: Start Inositol, Estrobal. Meet with Joni for support with insulin resistance . [address] [place] [facility] [address] [facility], [address] [place] [address] 01/06/2025 07:36:19 01/12/2025 12:12:53 Chronic constipation 373868943 K59.09 Pt has extensive history of constipati on; pt to optimize fiber/ hydration. Taking magnesium citrate Abdominal bloating 25814 9008 R14.0 Pt does not know what is bloating/ what is weight gain or endometrio sis. Discussing digestion and lifestyle. Meeting with Delphine wiley weight gain 6137497307 14400 R63.5 Working on balancing diet, encouragin g to increase physical movement. [place] [address] [address] [place] [facility] [address] [place] [address] 02/01/2025 07:33:31 02/02/2025 08:37:10 Chronic constipation 844667406 K59.09 02/01/25: Mg citrate 3 caps per day, unclear frequency. Start Nystatin, ultrabioti c, GI alive. Consider Biocidin, Undecyleni c Acid down the line if needed.12/24/24: Minimal improvemen t with Mg Citrate, about [...] evaluation , food sensitivit ies. Idiopathic hypersomnia 4400218516 107 G47.11 02/01/25: noticed some improvemen t lately, able to work more styeil05/3 /25: Improved minimally, relying on caffeine. Will monitor- [...] evaluation , food sensitivit ies. Abdominal bloating 27420 9008 R14.0 02/01/25: Start above GI treatment- will monitor.: Minimal improvemen t with Mg Citrate, about to be at 5 cap daily. SIBO negative. Check stool test. Start MCT oil. May be d/t inflammati on d/t possible endometrio sis. Limits gluten. Met with joni.: SIBO test negative. Avoid whey x 6 [...] food sensitivit ies. Unintentio nal weight gain 0746303971 92666 R63.5 02/01/25: Has noticed clothes have been fitting more loosely since starting LDN and face less puffy. No weight loss yet. will jvxiufo45/ 3/25: Met with federica alan pretty healthy. Focus [...] claus stool evaluation , food sensitivit ies. [facility] 04458891 H93.13 11/29/24: On/off, cont to monitor. Check Bartonella FISH 5: Check SIBO test, food sensitivit ies, [facility], Humap: Improved. Will continue to monitor.02/14: Will start optimizing nutrition and nutritiona l deficienci es and follow up.08/28/23: Will check Lyme testing, Nutritiona l deficienci es, comprehens claus stool evaluation , food sensitivit ies. Depressive disorder 9845 4667 F32.A 02/01/25: A lot more focused since starting LDN, mood fluctuates , has been better this PMS cycle: Cont current plan, will monitor.11/29/24: Tx candidiasi s, support adrenal fatigue. Start Inositol/E strobal. Check Bartonella FISH 5: Check SIBO test, food sensitivit ies, [facility], Humap: No improvemen t yet. Will monitor.02/14: Will start optimizing nutrition and nutritiona l deficienci es and follow up.08/28/23: Will check Lyme testing, Nutritiona l deficienci es, comprehens claus stool evaluation , food sensitivit ies. Fatigue 44232209 R53.83 02/01/25: improved some starting LDN. Will monitor.: Cont below plan. Check stool test. Start [...] claus stool evaluation , food sensitivit ies. Candidiasis 35678354 B37 .9 24084 02/01/25: Start Nystatin, plan to discuss starting Undecyleni c Acid at next visit. Did not tolerate Candibal. No significan t improvemen t with Diflucan. Discussed importance of tyron diet.: Completed diflucan, didn't notice any changes. Hold [...] and then Candibal. Chocolate cyst of ovary 257328216 N80.109 41391 02/01/25: Repeat U/s with no cyst. Met with specialist - said she could monitor or go ahead with surgery. Patient chose to monitor for now as sxs have improved some.: Meets with specialist next week, continue inositol/e strobal11/29: Start Inositol, Estrobal: Has appointmen t with endometrio sis specialist in December 2024 Jagdish thyroiditis 21 084616 E06.3 23030 02/01/25: Doing well on LDN 4.5mg, [id number] /3/25: Cont gluten free, start LD11/29/24: TPO 49, trial gluten free 5: Check SIBO test, food sensitivit ies, [facility], [facility]ap Dysmenorrhea 691821541 N 94.6 47787 02/01/25: Less PMS sxs this current cycle, will fdbearb59/ 3/25: Continue Inositol, Estrobal. Will follow up appt with endometrio sis specialist on 12/29. 5: Start Inositol, Estrobal. Meet with Joni for support with insulin resistance . [address] [place] [facility] [address] [facility], [address] [place] [address] 02/03/2025 07:35:54 02/04/2025 08:33:19 Chronic constipation 155382257 K59.09 Pt has extensive history of constipati on; pt to optimize fiber/ hydration. Taking magnesium citrate Abdominal bloating 75672 9008 R14.0 Pt does not know what is bloating/ what is weight gain or endometrio sis. Discussing digestion and lifestyle. Meeting with Delphine wiley weight gain [id number] 30551 R63.5 Working on balancing diet, encouragin g to increase physical movement. Has started walking more, meeting with a service dog trainer, and starting Wegov[employer] soon Health Concerns Section Related Observation LastModified by Organization Detai ls LastModified Time None Recorded Concern Status LastModified by Organization Details LastModified Time None Recorded Advance Directives Directive None Recorded Payers Insurance Date Sequence Insurance Name Policy Number Policy [place] Covered Member ID [place] Member ID Guarantor Name 02/07/2025 1 [employer] [facility] [place] [id number] Bhupinder Horton [id number] Nevaeh Horton 12/27/2024 2 [place]: [place] ([place]) Bhupinder Horton [id number] Nevaeh Horton 11/15/2024 2 [place] [place] Bhupinder Horton [id number] Nevaeh Horton 12/28/2024 1 [employer] [facility] ([place] [id number] Bhupinder Horton [id number] Nevaeh Horton Notes Date Note Type [...] to do it. Emphasized giving herself some eivn and focusing on small thingsLots of caffeine, [...] mixed nuts and freeze dried fruits at [facility] that she cannot have her fbfrbvPczvl-Dadflj-Bpjn of a wild card , vishal rice, [...] E, zyrtecNystatinTHENCandibalGentle IronZincPGXCilantroGI Alive 1 scoopAnti-depressant JONI COLMENARES, RD [address] [facility], [address], [place], [address], [facility] 12/08/2024 16:38:15 025 [...] dairy, does eat cheese sticks. Met with Joni- went well, she's already doing a lot [...] cat who has been a ray of [employer], had done a lot for the family. Recently scratched badly by cat at [facility]. Hormone Health/Chocolate cyst/Possible Endometriosis- Has appt to [...] elevated 16-OH, low 4-OHQuest BW- CoQ10 0.88, [place] 2.8, Tyron IgM 1.2, Vit D 42, [...] Off OCP since 08/2023. Lasts 4-7days, Regular [id number]. +PMS- cramping, emotional, severe irritability prior to period.Libido: No sex > 1-2yr. Thought libido, but also relationship dynamics. Seeing sex therapist. H/o pain with sex, had evaluated at [facility] and had pelvic floor PT.Relationships: , seeing [...] FT3, zincLyme: Positive TBRF, positive Bartonella henslaePositive VS1Kbqsddv IgMHigh AAFood sensitivities: 3+ yogurt, 2+ whey, [...] Vitamin D, Vitamin E, zyrtec DANILO Barth [address] [place] [address], [address], [place], [address], [facility] 12/24/2024 10:52:46 025 [...] [facility] cannot have her rsdjvnFamsr-Saidov-Vysx of a wild card , vishal rice, [...] E, zyrtecNystatinTHENCandibalGentle IronZincPGXCilantroGI Alive 1 scoopAnti-depressant JONI COLMENARES, RD [address] [facility], [address], [place], [address], [facility] 01/07/2025 12:54:03 025 text/ht ml The visit was conducted with the use of interactive audio and video telecommunications that permits real time communication between patient and provider. The patient provided verbal consent for a virtual visit and was contacted while at home. This call was conducted from the [facility]. This case was discussed with the supervising physician, Dr. Rikki Leonard.02/01/25:Changes since last visit: Chocolate cyst/Possible Endometriosis- Dr. Wahl said we could do what she prefers- repeat U/S or do surgery. Did repeat U/S and cyst no longer visualized. Plan to continue monitoring for now. Not feeling like an emergency for her at the moment bc sxs are tolerable. Told her hormonal med could help.Hormone Health-will be starting OCP ()LDN- On 4.5mg. libido improved, clothes feel looser, friend told her face looks less puffy. 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 PCP monitor.Weight gain- Clothes looser now. Noticed Llumen device told her she is only burning carbs, but not fats. Lumen results correlate with IR score with labs per pt. Dx wegovy by PCP- hasn't started yet.Constipation- unclear frequency. 3 cap magnesium citrate daily- BM 4-5 days/week. Daily bloatingEnergy-improved energy for work. Does still like lying in bed.Depression/Anxiety-a lot more focused since starting LDN. Mood has been okay. Currently PMSing, could be worse.Movement-SweatingNew Allergies- no changes. got silicone wedding band. Labs:GI Effects- elevated methane, ?low stomach acid, +1 yeast, no lactobacillus 12/24/24:Changes since last visit:- No changes, the [...] dairy, does eat cheese sticks. Met with Joni- went well, she's already doing a lot [...] family. [facility] Hormone Health/Chocolate cyst/Possible Endometriosis- Has appt to [...] elevated 16-OH, low 4-OHQuest BW- CoQ10 0.88, [place] 2.8, Tyron IgM 1.2, Vit D 42, [...] products. Prior products had many irritants per [employer] ning, once switching hair growing well.5.)Tinnitus- has returned. Doesn't remember what helped in the past. Has sensory sensitivities and bothers her often. No prior concussion.6.)Constipation- more significant, only able to have BM (smooth move tea, does cause cramping). BM 2x/week. No changes in gut health since last year.7.)Bloating- has daily/frequently8.)Weight gain- has gained weight, current 193lb, 190lb 08/2023. Using llDogSpotn device to track metabolizm- mainly stays in [...] Off OCP since 08/2023. Lasts 4-7days, Regular [id number]. +PMS- cramping, emotional, severe irritability prior to period.Libido: No sex > 1-2yr. Thought libido, but also relationship dynamics. Seeing sex therapist. H/o pain with sex, had evaluated at [facility] and had pelvic floor PT.Relationships: , seeing [...] FT3, zincLyme: Positive TBRF, positive Bartonella henslaePositive HC0Hxaeqbv IgMHigh AAFood sensitivities: 3+ yogurt, 2+ whey, [...] Vitamin D, Vitamin E, zyrtec DANILO Barth [address] [place] [address], [address], [place], [address], [place] - [facility] 02/01/2025 17:49:58 025 text/ht ml The visit was conducted with the use of interactive audio and video telecommunications that permits real time communication between patient and provider. The patient provided verbal consent for a virtual visit and was contacted while at home. 01/03/25PT was going to be continuing, but was charged $136 each timeNow is working out 2x/ week with a football coach that she sees (starting gently)-easing inMet w/ pcp and was prescribed a GLP-1-has not started taking it yetNot currently trackingUsual for mealsMarinated beef B/L-granny hickman apples, almond butter, or 2 scrambled eggs, gouda cheese sticks, high protein yogurt from aldi---adds lots of quincy seeds, chompsD-protein---salmon filet, frozen steamed veggie, vishal rice, popcorn 01/06/25Started some PT-it has been pretty good. [...] easyEats a [facility]: allergy to wheat, [...] foods, mostly staying away from dairy. 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 02/03/2025 20:28:13 OBGyn Episode No OBEpisode recorded.
--- OUTSIDE RECORDS SUMMARY | 2025-02-19 14:29 | XMS_ITS | Continuity of Care Document ---
Author Organization [facility] - [facility] Office Address [address], [address] [place] [address] Care Team Providers Care Terra Cotta Roofer Name Role Phone NEVAAANM Gonzalez Primary Care Provider Assessment Encounter Date Assessment Date Assessment LastModified by Organization Details LastModified Time 01/06/2025 01/06/2025 Spent >50% of 30 minute [...] Modified By Organization Details Last Modified Time 01/06/2025 [id number] Dear Nevaeh, It was great to chat [...] available 12:14:09 Reason for Referral None Reported. Problems Name Problem SNOMED Code Status Onset Date Resolution Date Notes Provider Name and Address Organization Details Recorded Time Postpart um depressi on 43439240 Completed 201702/25/2018 Linn Dodd NP [address] [place] [address], [address], [place], [address] , [place] - [facility] 4 13:15:53 Chronic constipa tion 699795211 Active 2023 Saw GI, no w/u done. Linn Dodd NP [address] [place] [address], [address], [place], [address] , [place] [facility] 4 13:09:06 Depressi ve disorder 29775480 Active 2023 Linn Dodd NP [address] [place] [address], [address], [place], [address] , [place] [facility] 4 13:11:30 Anxiety 70923704 Active 2023 Linn Dodd NP [address] [place] [address], [address], [place], [address] , [place] [facility] 4 13:11:37 Tinnitus 27257833 Active 2023 Linn Dodd NP [address] [place] [address], [address], [place], [address] , [place] - [facility] 4 13:14:32 Unintent ional weight gain 91958451091 4104 Active 2023 Linn Dodd NP [address] [place] [address], [address], [place], [address] , [place] - [facility] 4 13:15:05 Fatigue 40908405 Active 2023 Linn Dodd NP [address] [place] [address], [address], [place], [address] , [place] - [facility] 4 13:19:19 Idiopath ic hypersom vipin 36423345479 07 Active 2023 Linn Dodd NP [address] [place] [address], [address], [place], [address] , [place] - [facility] 4 13:19:55 Abdomina l bloating 257721469 Active 2023 Linn Dodd NP [address] [place] [address], [address], [place], [address] , [place] - [facility] 4 13:21:09 Eczema 60653965 Active 2023 Linn Dodd NP [address] [place] [address], [address], [place], [address] , [place] - [facility] 4 13:21:51 Seasonal allergic rhinitis 052468456 Active 2023 Linn Dodd NP [address] [place] [address], [address], [place], [address] , [place] - [facility] 4 13:22:00 Raynaud' s disease 671202423 Active 2023 Secondar y to frostbit e Linn Dodd NP [address] [place] [address], [address], [place], [address] , [place] - [facility] 4 13:38:52 History of alcoholi sm 773353152 Completed 202308/28/2023 Removal Reason: 10/2010 Linn Dodd NP [address] [place] [address], [address], [place], [address] , [place] [facility] 4 13:39:23 Loss of hair 709892925 Active 2023 Linn Dodd NP [address] [place] [address], [place] [address], [place], [address] , [facility] - [facility] 4 14:18:35 Reduced libido 3431276 Active 2023 Linn Dodd NP [address] [place] [address], [place] [address], [place], [address] , [facility] 4 14:18:52 Vitamin D deficien cy 71474505 Active 2023 Linn Dodd NP [address] [place] [address], [place] [address], [place], [address] , [facility] - [facility] 4 14:26:42 Gastroin testinal candidia sis 89256338 Active 2023 Linn Dodd NP [address] [place] [address], [place] [address], [place], [address] , [facility] - [facility] 4 08:15:29 Tick-bor ne relapsin g fever 32962443 Active 2023 Linn Dodd NP [address] [place] [address], [place] [address], [place], [address] , [facility] - [facility] 4 08:30:30 Infectio n by Bartonel la bacillif ormis 523194412 Active 2023 Linn Dodd NP [address] [place] [address], [place] [address], [place], [address] , [facility] 4 08:31:17 Chocolat e cyst of ovary 813147325 Active 2024 Possible endometr iosis DANILO Barth [address] [place] [address], [place] [address], [place], [address] , [facility] - [facility] 5 09:07:07 Thromboc ytopenic disorder 529759589 Active 2024 DANILO Barth [address] [place] [address], [place] [address], [place], [address] , [facility] - [facility] 18:33:17 Problem Notes None recorded. Procedures Surgical History Date Name Laterality Status Provider Name and Address Organization Details Recorded Time 03/24/19 25 Date of Last Pap Smear completed DANILO Barth [address] [place] [address], [facility] [address], [place], [address], [facility] - [facility] 10/22/2024 09:07:47 03/24/19 20 Remove tonsils and adenoids completed Linn Dodd NP [address] [place] [address], [facility] [address], [place], [address], [facility] - [facility] 08/28/2023 13:44:12 Breast reduction completed Susana Dodd NP [address] [place] [address], [facility] [address], [place], [address], [facility] 08/28/2023 13:43:24 excision of fibroadenoma of breast completed Linn Dodd NP [address] [place] [address], [facility] [address], [place], [address], [facility] - [facility] 08/28/2023 13:43:38 Imaging Results None recorded. Procedure Notes None recorded. Medical Equipment None Reported. Allergies Allergen ID Allergen Name Allergen Category Reaction Reaction Severity Criticality Documentation Date Start Date Code Code System Note Provider Name and Address Organization Details Recorded Time 9044 wheat preparati on food,medi cation Not available Not available Not available 08/28/2023 45469 52 Lety Dodd NP [address] [place] [address], [facility] [address], [place], [address], [facility] - [facility] 13:21:18 9045 oats preparati on food Not available Not available Not available 08/28/2023 36520 1 Lety Dodd NP [address] [place] [address], [facility] [address], [place], [address], [facility] - [facility] 13:21:23 9046 barley extract food Not available Not available Not available 08/28/2023 06430 66 Lety Dodd NP [address] [place] [address], [address], [place], [address] , [facility] - [facility] 4 13:21:33 Medications [...] Time Tobacco Smoking Status Never Smoker Linn Dodd, HEVER [address] [facility], [address], [place], [address], [place] - [facility] 08/28/2023 13:33:41 What Is Your Level Of Caffeine Consumption? Moderate 1 Celsius/da y [email or web address] Information not available 10/22/2024 What Type Of Diet Are You Following? REGULAR [email or web address] Information not available 08/28/2023 Ancestry/Ethn icity Nepali, Polish [place], Cookie, Sweedish Information not available 08/28/2023 How Much Tobacco Do You Smoke? No [email or web address] Information not available 08/28/2023 How Many Years Have You Smoked Tobacco? 0 [email or web address] Information not available 08/28/2023 Sex: Unknown Functional Status Question Answer Note LastModified by Organizat ion Details LastModified Time What is your level of alcohol consumption? None [email or web address] Information not available 08/28/2023 Are you currently employed? 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 [email or web address] Information not available 08/28/2023 What is your exercise level? Occasional [email or web address] Information not available 08/28/2023 Mental Status None [...] ICD10 Code Diagnosis IMO Codes Diagnosis Note [address] [place] [facility] [address] [facility], [address] [place] [address] 12/07/2024 07:47:32 12/09/2024 09:50:37 Chronic constipation 947803497 K59.09 Pt has extensive history of constipati on; pt to optimize fiber/ hydration. Taking magnesium citrate Abdominal bloating 88819 9008 R14.0 Pt does not know what is bloating/ what is weight gain or endometrio sis. Discussing digestion and lifestyle Unintentio nal weight gain 1678909081 91205 R63.5 Working on balancing diet, encouragin g to increase physical movement 67155 DANILO Barth [place] [facility] [address], [address] [place] [address] 12/24/2024 09:48:33 12/24/2024 11:00:57 Chronic constipation 134855333 K59.09 12/24/24: Minimal improvemen t with Mg [...] evaluation , food sensitivit ies. 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 Abdominal bloating 21861 9008 R14.0 12/24/24: Minimal improvemen t with [...] food sensitivit ies. Unintentio nal weight gain 4731332824 10227 R63.5 12/24/24: Met with federica alan pretty [...] stool evaluation , food sensitivit ies. Tinnitus 60676382 H93.13 11/29/24: On/off, cont to monitor. Check Bartonella FISH 5: Check SIBO test, food sensitivit ies, [facility] labs, Humap: Improved. Will continue to monitor.02/14: Will start optimizing nutrition and nutritiona l deficienci es and follow up.08/28/23: Will check Lyme testing, Nutritiona l deficienci es, comprehens claus stool evaluation , food sensitivit ies. Depressive disorder 8205 9007 F32.A 12/24/24: Cont current plan, will [...] stool evaluation , food sensitivit ies. Fatigue 77012219 R53.83 12/24/24: Cont below plan. Check stool [...] stool evaluation , food sensitivit ies. Candidiasis 62898906 B37 .9 21972 12/24/24: Completed diflucan, didn't notice any changes. [...] and then Candibal. Chocolate cyst of ovary 069784363 N80.109 78779 12/24/24: Meets with specialist next week, continue inositol/e strobal11/29: Start Inositol, Estrobal: Has appointmen t with endometrio sis specialist in December 2024 Trent thyroiditis 21 321930 E06.3 40667 12/24/24: Cont gluten free, start LD11/29/24: TPO 49, trial gluten free 5: Check SIBO test, food sensitivit ies, [facility] labs, Humap Dysmenorrhea 834961609 N 94.6 43721 12/24/24: Continue Inositol, Estrobal. Will follow up appt with endometrio sis specialist on 12/29. 5: Start Inositol, Estrobal. Meet with Joni for support with insulin resistance . [address] [place] [facility] [address], [address] [place] [address] 01/06/2025 07:36:19 01/12/2025 12:12:53 Chronic constipation 658525302 K59.09 Pt has extensive history of constipati on; pt to optimize fiber/ hydration. Taking magnesium citrate Abdominal bloating 44472 9008 R14.0 Pt does not know what is bloating/ what is weight gain or endometrio sis. Discussing digestion and lifestyle. Meeting with Delphine wiley weight gain [id number] 46308 R63.5 Working on balancing diet, encouragin g to increase physical movement. Has started walking more and going to PT Health Concerns Section Related Observation LastModified by Organization Detai ls LastModified Time None Recorded Concern Status LastModified by Organization Details LastModified Time None Recorded Payers Encounter Date Sequence Insurance Name Policy Number Policy Madison Covered Member ID Madison Member ID Guarantor Name 01/06/2025 1 [employer]AH [employer] [facility] (PPO) [id number] Bhupinder Horton [id number] Nevaeh Horton Notes Date Note Type [...] at desk-8or 9am-6pm, doing contacting notesTypical Day:Breakfast-joeyny vick apples X2, 3 eggs, seasonings, cooking sprayeats mixed nuts and freeze dried fruits at [facility] that she cannot have her hrllgxKzyak-Tqvwkz-Bzpx of a wild card , vishal rice, [...] Alive 1 scoopAnti-depressant JONI COLMENARES, RD [address] [facility], [address], [place], [address], [facility] - [facility] 01/07/2025 12:54:03 OBGyn Episode No OBEpisode recorded.
--- OUTSIDE RECORDS SUMMARY | 2025-02-19 14:29 | XMS_ITS | Clinical Summary ---
Author Organization [facility] Address [address] [place] [address] Care Team Providers Care Lift Supervisor Name Role Phone Unknown Primary Care Provider [phone] Allergies Active Allergy Reactions Criticality Noted Date [...] Description 01/26/2025 1:30 PM EST Ancillary Procedure [facility] [address] [place] [address] Provider, File Room 01/07/2025 8:05 AM EDT Ancillary Procedure [facility] [address] [place] [address] Provider, File Room 01/04/2025 Scanned Document [facility] [address] [place] [address] Brandon Lam MD 12/27/2024 1:00 PM EDT Office Visit [facility] [address] [facility] [address] [place] [address] Brandon Lam MD Endometrioma of left ovary (Primary Dx); Constipation, unspecified constipation type; Dysmenorrhea from Last 3 Months Family History Medical [...] , 01/01/2019, Additional history exists COVID-19 Vaccine ( season) 2024 02/23/2021, 07/02/2020, 06/11/2020 HPV Vaccines [...] IMG DIGITIZE FILMS Final Resu lt SCOTTIE [phone] * MOY Archive for reference only MR (01/07/2025 8:05 AM EDT) Narrative SCOTTIE - 01/07/2025 8:03 AM EDT This order has been auto-finalized and does not contain a result. us File Room Provider IMG DIGITIZE FILMS Final Resu lt SCOTTIE [phone] from Last 3 Months Insurance PPO Care Teams Lift Supervisor Relationship Specialty Start Date End Date Unknown Unknow Provider Address PCP - General 10/18/24
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
--- OUTSIDE RECORDS SUMMARY | 2025-02-19 14:29 | XMS_ITS | Encounter Summary ---
Author Organization [facility] Address [address] [facility] [address] [place] [id number] Phone Care Team Providers Care Electrician Locomotive Name Role Phone Jing Coffey MD Primary Care Provider + Encounter Details Date Type Department Care Team (Late st Contact Info) Description 02/24/2023 Procedure Pass [facility] [address] [place] [phone] Social History Tobacco Use Types Packs/Day Years [...] on filedocumented in this encounter Care Teams Electrician Locomotive Relationship Specialty Start Date End Date Jing Coffey MD PCP - General Internal Medicine 08/10/18 documented as of this encounter Additional Source Comments The information contained in this document represents components of the legal health record. It is not the complete legal health record.[facility]
--- OUTSIDE RECORDS SUMMARY | 2025-02-19 14:29 | XMS_ITS | Encounter Summary ---
Author Organization [facility] Address [address] [place] [address] Care Team Providers Care Outsole Handler Name Role Phone Unknown Primary Care Provider [phone] Encounter Details Date Type Department Care Team ([facility] st Contact Info) Description 01/04/2025 Scanned Document [facility] [place] [phone] Brandon Lam MD [address] [place] [address] Social History Tobacco Use Types Packs/Day Years [...] on filedocumented in this encounter Care Teams Outsole Handler Relationship Specialty Start Date End Date Unknown Unknow Provider Address PCP - General 10/18/24 documented as of this encounter
--- OUTSIDE RECORDS SUMMARY | 2025-02-19 14:30 | XMS_ITS | Continuity of Care Document ---
Author Organization [facility] Address [address], [address] [place] [address] Care Team Providers Care Miter Cutter Name Role Phone ANAM HOOKS Primary Care Provider Assessment Encounter Date Assessment Date Assessment LastModified by Organization Details LastModified Time 02/03/2025 02/03/2025 Spent >50% of 30 minute [...] Modified By Organization Details Last Modified Time 02/03/2025 [id number] Dear Nevaeh, It was great to chat with you! Please see our visit summary below. Dairy free yogurt at [facility] Cultured Vanilla Almondmi Yogurt Alternative So Delicious Vegan, Dairy Free Unsweetened Plain Coconut Yogurt Alternative [employer] Dairy Free Cashew & Coconut Milk Yogurt Fiber -Quincy seeds -mix 1-2 tbs into DF yogurt or oatmeal -Pamela fiber-https://ynes Solvoyocom/p/suplmt s_acacia_bulk_no g/bulk-prebiotic -mrnkzn-qme-6-tu ipi-opztr-mjmgtd s/ Boost your fiber to 25-30g/ day. Below is a link with different fiber sources. If you add a fruit or veggie to each meal or snack, you are well on your way there! Here are some examples of foods you could add to your meals: Breakfast: add 1c raspberries (8g fiber) or 1 oz of qiuncy seeds (10g fiber) Lunch: add 1 cup greens (~1g fiber), 1c carrots (3g fiber), 1/2 c green beans (2g fiber) Dinner: add 1 cup broccoli (5g fiber) Snack 1: 1 apple (5g fiber), 1 oz almonds (3g fiber) https://www.[facility]/healt hy-lifestyle/nut hozmzc-gxh-qedyv hy-eating/in-dep th/upih-shkfi-rx ods/art-58620377 Protein- Aim for ~90-100g for now B-7:30am-Egg [...] cup ~6-7 g Apple for fiber Dinner [place], turkey, chicken sausage, beef ~4-5oz 25-30g protein Peas, beans 1/2 cup ~7g protein Quinoa-1/2 cup cooked= 4g protein Easy access ning: We can try Lose it! If you would like to add me as a friend, my email connected to the account is [email or web address] alfredo (NICO) Don- Inbody scan. Call to schedule, your first one is free. Please let me know if you have any questions. With gratitude, Joni Cabezas, MS, RDN, LDN christine Not available 02/03/2025 20:26:25 f/u 1 month christine Not available 13:14:11 Reason for Referral None Reported. Results Created Date Observation Date Name Description Value Unit Range Abnormal Flag Note LastModifiedBy Organization Detail LastModifiedTime Result Notes None recorded. Problems Name Problem SNOMED Code Status Onset Date Resolution Date Notes Provider Name and Address Organization Details Recorded Time Postpart um depressi on 05193461 Completed 201702/25/2018 Linn Dodd NP [address] [place] [address], [place] [address], [place], [address] , [place] [facility] 4 13:15:53 Chronic constipa tion 376786279 Active 2023 Saw GI, no w/u done. Linn Dodd NP [address] [place] [address], [facility] [address], [place], [address] , [place] [facility] 4 13:09:06 Depressi ve disorder 82825536 Active 2023 Linn Dodd NP [address] [place] [address], [facility] [address], [place], [address] , [place] [facility] 4 13:11:30 Anxiety 18339058 Active 2023 Linn Dodd NP [address] [place] [address], [place] [address], [place], [address] , [place] [facility] 4 13:11:37 Tinnitus 58333508 Active 2023 Linn Dodd NP [address] [place] [address], [place] [address], [place], [address] , [place] [facility] 4 13:14:32 Unintent ional weight gain 69859826670 4104 Active 2023 Linn Dodd NP [address] [place] [address], [place] [address], [place], [address] , [place] [facility] 4 13:15:05 Fatigue 37982945 Active 2023 Linn Dodd NP [address] [place] [address], [facility] [address], [place], [address] , [place] [facility] 4 13:19:19 Idiopath ic hypersom vipin 64896287873 07 Active 2023 Linn Dodd NP [address] [place] [address], [facility] [address], [place], [address] , [place] [facility] 4 13:19:55 Abdomina l bloating 254964545 Active 2023 Linn Dodd NP [address] [place] [address], [address], [place], [address] , [place] [facility] 4 13:21:09 Eczema 94003788 Active 2023 Linn Dodd NP [address] [place] [address], [place] [address], [place], [address] , [place] [facility] 4 13:21:51 Seasonal allergic rhinitis 337447238 Active 2023 Linn Dodd NP [address] [place] [address], [place] [address], [place], [address] , [place] [facility] 4 13:22:00 Raynaud' s disease 722746944 Active 2023 Secondar y to frostbit e Linn Dodd NP [address] [place] [address], [place] [address], [place], [address] , [place] [facility] 4 13:38:52 History of alcoholi sm 899380736 Completed 202308/28/2023 Removal Reason: 10/2010 Linn Dodd NP [address] [place] [address], [facility] [address], [place], [address] , [place] [facility] 4 13:39:23 Loss of hair 368066484 Active 2023 Linn Dodd NP [address] [place] [address], [facility] [address], [place], [address] , [place] [facility] 4 14:18:35 Reduced libido 5595378 Active 2023 Linn Dodd NP [address] [place] [address], [address], [place], [address] , [facility] - [facility] 4 14:18:52 Vitamin D deficien cy 55900641 Active 2023 Linn Dodd NP [address] [place] [address], [facility] [address], [place], [address] , [facility] - [facility] 4 14:26:42 Gastroin testinal candidia sis 13155691 Active 2023 Linn Dodd NP [address] [place] [address], [facility] [address], [place], [address] , [facility] 4 08:15:29 Tick-bor ne relapsin g fever 87475499 Active 2023 Linn Dodd NP [address] [place] [address], [place] [address], [place], [address] , [facility] - [facility] 4 08:30:30 Infectio n by Bartonel la bacillif ormis 304020288 Active 2023 Linn Dodd NP [address] [place] [address], [facility] [address], [place], [address] , [facility] 4 08:31:17 Chocolat e cyst of ovary 323395099 Active 2024 Possible endometr iosis DANILO Barth [address] [place] [address], [facility] [address], [place], [address] , [facility] 5 09:07:07 Thromboc ytopenic disorder 677813922 Active 2024 DANILO Barth [address] [place] [address], [facility] [address], [place], [address] , [facility] - [facility] 5 18:33:17 Problem Notes None recorded. Procedures Surgical History Date Name Laterality Status Provider Name and Address Organization Details Recorded Time 03/24/19 Date of Last Pap Smear completed DANILO Barth [address] [place] [address], [facility] [address], [place], [address], [facility] 10/22/2024 09:07:47 03/24/19 20 Remove tonsils and adenoids completed Linn Dodd NP [address] [facility], [address], [place], [address], [facility] - [facility] 08/28/2023 13:44:12 Breast reduction completed Susana Dodd NP [address] [facility], [address], [place], [address], [facility] 08/28/2023 13:43:24 excision of fibroadenoma of breast completed Linn Dodd NP [address] [facility], [address], [place], [address], [facility] 08/28/2023 13:43:38 Imaging Results None recorded. Procedure Notes None recorded. Medical Equipment None Reported. Allergies Allergen ID Allergen Name Allergen Category Reaction Reaction Severity Criticality Documentation Date Start Date Code Code System Note Provider Name and Address Organization Details Recorded Time 9044 wheat preparati on food,medi cation Not available Not available Not available 08/28/2023 61537 52 RxNorm Linn Dodd NP [address] [facility], [address], [place], [address], [facility] 4 13:21:18 9045 oats preparati on food Not available Not available Not available 08/28/2023 65098 1 RxFabian Dodd NP [address] [place] [address], [address], [place], [address], [facility] 4 13:21:23 9046 barley extract food Not available Not available Not available 08/28/2023 20960 66 RxNojordi Dodd NP [address] [facility], [address], [place], [address], [facility] 4 13:21:33 Medications Name Sig Start [...] completed Not Available Not Available Not Available Junel FE 1.5/30 (28) 1.5 mg-30 mcg (21)/75 mg [...] Smoking Status Never Smoker Linn Dodd, HEVER [address] [place] [address], [address], [place], [address], [facility] - [facility] 08/28/2023 13:33:41 What Is Your Level Of Caffeine Consumption? Moderate 1 Celsius/da y [email or web address] Information not available 10/22/2024 What Type Of Diet Are You Following? REGULAR [email or web address] Information not available 08/28/2023 Ancestry/Ethn icity Faroese, Brazilian [place], [place], Sweedish [email or web address] Information not available 08/28/2023 How Much Tobacco Do You Smoke? No [email or web address] Information not available 08/28/2023 How Many Years Have You Smoked Tobacco? 0 [email or web address] Information not available 08/28/2023 Sex: Unknown Functional Status Question Answer Note LastModified by Organizat ion Details LastModified Time What is your level of alcohol consumption? None [email or web address] Information not available 08/28/2023 Are you currently employed? 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 [email or web address] Information not available 08/28/2023 What is your exercise level? Occasional [email or web address] Information not available 08/28/2023 Mental Status None [...] ICD10 Code Diagnosis IMO Codes Diagnosis Note [id number] [place] [facility] [address] [facility], [address] [place] [address] 01/06/2025 07:36:19 01/12/2025 12:12:53 Chronic constipation 620228355 K59.09 Pt has extensive history of constipati on; pt to optimize fiber/ hydration. Taking magnesium citrate Abdominal bloating 09422 9008 R14.0 Pt does not know what is bloating/ what is weight gain or endometrio sis. Discussing digestion and lifestyle. Meeting with Delphine wiley weight gain [id number] 44536 R63.5 Working on balancing diet, encouragin g to increase physical movement. [place] [address] DANILO Barth [place] [facility] [address] [place] [address] 02/01/2025 07:33:31 02/02/2025 08:37:10 Chronic constipation 635763258 K59.09 02/01/25: Mg citrate 3 caps per [...] evaluation , food sensitivit ies. 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 Will [...] evaluation , food sensitivit ies. Abdominal bloating 21283 9008 R14.0 02/01/25: Start above GI treatment- [...] food sensitivit ies. Unintentio nal weight gain 5317395285 65439 R63.5 02/01/25: Has noticed clothes have been fitting more loosely since starting LDN and face less puffy. No weight loss yet. will [email or web address]/ 3/25: Met with federica alan pretty healthy. [...] stool evaluation , food sensitivit ies. Tinnitus 10831791 H93.13 11/29/24: On/off, cont to monitor. Check Bartonella FISH 5: Check SIBO test, food sensitivit ies, [facility], Humap: Improved. Will continue to monitor.02/14: Will start optimizing nutrition and nutritiona l deficienci es and follow up.08/28/23: Will check Lyme testing, Nutritiona l deficienci es, comprehens claus stool evaluation , food sensitivit ies. Depressive disorder 3500 3876 F32.A 02/01/25: A lot more focused since starting LDN, mood fluctuates , has been better this PMS cycle: Cont current plan, will monitor.11/29/24: Tx victorinaiasi s, support adrenal fatigue. Start Inositol/E strobal. Check Bartonella FISH 5: Check SIBO test, food sensitivit ies, [facility] labs, Humap: No improvemen t yet. Will monitor.02/14: Will start optimizing nutrition and nutritiona l deficienci es and follow up.08/28/23: Will check Lyme testing, Nutritiona l deficienci es, comprehens claus stool evaluation , food sensitivit ies. Fatigue 07983145 R53.83 02/01/25: improved some starting LDN. Will [...] stool evaluation , food sensitivit ies. Candidiasis 06166216 B37 .9 31352 02/01/25: Start Nystatin, plan to discuss starting [...] and then Candibal. Chocolate cyst of ovary 011820003 N80.109 49527 02/01/25: Repeat U/s with no cyst. Met with specialist - said she could monitor or go ahead with surgery. Patient chose to monitor for now as sxs have improved some.: Meets with specialist next week, continue inositol/e strobal11/29: Start Inositol, Estrobal: Has appointmen t with endometrio sis specialist in December 2024 Ternt thyroiditis 21 245692 E06.3 93766 02/01/25: Doing well on LDN 4.5mg, [email or web address] /3/25: Cont gluten free, start LD11/29/24: TPO 49, trial gluten free 5: Check SIBO test, food sensitivit ies, [facility], Humap Dysmenorrhea 121731620 N 94.6 97678 02/01/25: Less PMS sxs this current cycle, will ecytvxd99/ 3/25: Continue Inositol, Estrobal. Will follow up appt with endometrio sis specialist on 12/29. 5: Start Inositol, Estrobal. Meet with Joni for support with insulin resistance . [address] [place] [facility] [address] [facility], [address] [place] [address] 02/03/2025 07:35:54 02/04/2025 08:33:19 Chronic constipation 476514527 K59.09 Pt has extensive history of constipati on; pt to optimize fiber/ hydration. Taking magnesium citrate Abdominal bloating 09551 9008 R14.0 Pt does not know what is bloating/ what is weight gain or endometrio sis. Discussing digestion and lifestyle. Meeting with Delphine wiley weight gain [id number] 95558 R63.5 Working on balancing diet, encouragin g to increase physical movement. Has started walking more, meeting with a strainer mill operator, and starting Wegovy soon Health Concerns Section Related Observation LastModified by Organization Detai ls LastModified Time None Recorded Concern Status LastModified by Organization Details LastModified Time None Recorded Payers Encounter Date Sequence Insurance Name Policy Number Policy Madison Covered Member ID Madison Member ID Guarantor Name 02/03/2025 1 [employer] [facility] ([place]) [id number] Bhupinder Horton [id number] Nevaeh Horton Notes Date Note Type [...] is working out 2x/ week with a riding coach that she sees (starting gently)-easing inMet [...] easyEats a lot of frozen foods from [employer] she's done so far: allergy to wheat, [...] staying away from dairy. 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 02/03/2025 20:28:13 OBGyn Episode No OBEpisode recorded.
--- OUTSIDE RECORDS SUMMARY | 2025-02-19 14:30 | XMS_ITS | Continuity of Care Document ---
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 Studies ordered as below. Discussed plan with patient, who expressed understanding. Follow up as noted below. >50% of this 30 minute visit was spent counselling and coordinating care. This case was discussed with the supervising physician, Dr. Rikki Leonard. [facility] Not available 01/31/2025 21:41:47 Plan of Treatment Reminders Order Date Submit Date Provider Last Modified By Organization Details Last Modified Time Details Appointments Nutrition Virtual FollowUp 2024 11:00A Beka COL[address]ES [address] Not available Not available Not available Lab None recorded. Referral None recorded. Procedures None recorded. Surgeries None recorded. Imaging None recorded. Medication Orders compounde d medicatio n 2024 025 [facility], [address], [place], [address], 02/01/2025 17:51:17 nystatin 500,000 unit tablet 2024 025 [id number], [address], [place], [id number], 02/01/2025 17:50:00 Patient Targets Encounter Date Encounter Id Patient Goals Patient Target Last Modified By Organization Details Last Modified Time 02/01/2025 [id number] 1.) Unexplained weight gain/desire to lose weight 2.) potential endometriosis 3.) constipation [facility] Not available 01/31/2025 21:41:53 Patient Instructions Encounter Date Encounter Id Patient Instructions Last Modified By Organization Details Last Modified Time 02/01/2025 [id number] Dear Nevaeh, It was wonderful to see [...] you? Prescription: LDN 4.5mg (refill sent to [facility]) GI Health/Constipati on - Start Ultrabiotic 1 [...] at today s exam. Discussed the potential fdc complications with treatment. Appropriate follow up and [...] started elsewhere. [facility] Not available 02/01/2025 09:06:27 Reason for Referral None Reported. Results Created Date Observation Date Name Description Value Unit Range Abnormal Flag Note LastModifiedBy Organization Detail LastModifiedTime Result Notes None recorded. Problems Name Problem SNOMED Code Status Onset Date Resolution Date Notes Provider Name and Address Organization Details Recorded Time Postpart um depressi on 37230072 Completed 201702/25/2018 Linn Dodd NP [address] [place] [address], [address] [address], [place], [address] , [facility] 4 13:15:53 Chronic constipa tion 164697388 Active 2023 Saw GI, no w/u done. Linn Dodd NP [address] [place] [address], [address] [address], [place], [address] , [place] [facility] 4 13:09:06 Depressi ve disorder 52256355 Active 2023 Linn Dodd NP [address] [place] [address], [address] [address], [place], [address] , [place] [facility] 4 13:11:30 Anxiety 33050643 Active 2023 Linn Dodd NP [address] [place] [address], [address] [address], [place], [address] , [place] [facility] 4 13:11:37 Tinnitus 86971932 Active 2023 Linn Dodd NP [address] [place] [address], [facility] [address], [place], [address] , [place] [facility] 4 13:14:32 Unintent ional weight gain 81342266030 4104 Active 2023 Linn Dodd NP [address] [place] [address], [facility] [address], [place], [address] , [place] [facility] 4 13:15:05 Fatigue 43975513 Active 2023 Linn Dodd NP [address] [place] [address], [address], [place], [address] , [facility] 4 13:19:19 Idiopath ic hypersom vipin 41822075517 07 Active 2023 Linn Dodd NP [address] [place] [address], [address] [address], [place], [address] , [place] [facility] 4 13:19:55 Abdomina l bloating 114447541 Active 2023 Linn Dodd NP [address] [place] [address], [facility] [address], [place], [address] , [place] [facility] 4 13:21:09 Eczema 83040252 Active 2023 Linn Dodd NP [address] [place] [address], [facility] [address], [place], [address] , [place] [facility] 4 13:21:51 Seasonal allergic rhinitis 093838720 Active 2023 Linn Dodd NP [address] [place] [address], [facility] [address], [place], [address] , [place] [facility] 4 13:22:00 Raynaud' s disease 423980099 Active 2023 Secondar y to frostbit e Linn Dodd NP [address] [place] [address], [address], [place], [address] , [place] [facility] 4 13:38:52 History of alcoholi sm 834073743 Completed 202308/28/2023 Removal Reason: 10/2010 Linn Dodd NP [address] [place] [address], [facility] [address], [place], [address] , [place] [facility] 4 13:39:23 Loss of hair 712687142 Active 2023 Linn Dodd NP [address] [place] [address], [facility] [address], [place], [address] , [place] [facility] 4 14:18:35 Reduced libido 6141401 Active 2023 Linn Dodd NP [address] [place] [address], [facility] [address], [place], [address] , [facility] 4 14:18:52 Vitamin D deficien cy 05700759 Active 2023 Linn Dodd NP [address] [place] [address], [facility] [address], [place], [address] , [facility] 4 14:26:42 Gastroin testinal candidia sis 65694679 Active 2023 Linn Dodd NP [address] [place] [address], [facility] [address], [place], [address] , [facility] 4 08:15:29 Tick-bor ne relapsin g fever 91785113 Active 2023 Linn Dodd NP [address] [place] [address], [facility] [address], [place], [address] , [facility] 4 08:30:30 Infectio n by Bartonel adeola neil ormis 480894360 Active 2023 Linn Dodd NP [address] [place] [address], [address], [place], [address] , [facility] 4 08:31:17 Chocolat e cyst of ovary 208095444 Active 2024 Possible endometr iosis DANILO Barth [address] [facility], [address], [place], [address] , [facility] 5 09:07:07 Thromboc ytopenic disorder 776746300 Active 2024 DANILO Barth [address] [facility], [address], [place], [address] , [facility] 18:33:17 Problem Notes None recorded. Procedures Surgical History Date Name Laterality Status Provider Name and Address Organization Details Recorded Time 03/24/19 25 Date of Last Pap Smear completed DANILO Barth [address] [place] [address], [address], [place], [address], [facility] 10/22/2024 09:07:47 03/24/19 20 Remove tonsils and adenoids completed Linn Dodd NP [address] [place] [address], [address], [place], [address], [facility] 08/28/2023 13:44:12 Breast reduction completed Susana Dodd NP [address] [place] [address], [address], [place], [address], [facility] 08/28/2023 13:43:24 excision of fibroadenoma of breast completed Linn Dodd NP [address] [place] [address], [address], [place], [address], [facility] 08/28/2023 13:43:38 Imaging Results None recorded. Procedure Notes None recorded. Medical Equipment None Reported. Allergies Allergen ID Allergen Name Allergen Category Reaction Reaction Severity Criticality Documentation Date Start Date Code Code System Note Provider Name and Address Organization Details Recorded Time 9044 wheat preparati on food,medi cation Not available Not available Not available 08/28/2023 60531 52 RxFabian Dodd NP [address] [facility], [address], [place], [address], [facility] 13:21:18 9045 oats preparati on food Not available Not available Not available 08/28/2023 01764 1 RxNojordi Dodd HEVER [address] [facility], [address], [place], [address], [facility] 4 13:21:23 9046 barley extract food Not available Not available Not available 08/28/2023 91388 66 RxNorm Linn Dodd, HEVER [address] [facility], [address], [place], [address], [facility] 4 13:21:33 Medications [...] completed Not Available Not Available Not Available .08/20 (28) 1.5 mg-30 mcg (21)/75 mg (7) [...] Updated DateTime 02/01/2025 165.1 cm DANILO Barth [address] [place] [address], [address], [place], [address], [place] [facility] 02/01/2025 07:36:44 Social History Question Answer Notes LastModified by Organizat [employer] Details LastModified Time Tobacco Smoking Status Never Smoker Linn Dodd, HEVER [address] [facility], [address], [place], [address], [facility] 08/28/2023 13:33:41 What Is Your Level Of Caffeine Consumption? Moderate 1 Celsius/da y [email or web address] Information not available 10/22/2024 What Type Of Diet Are You Following? REGULAR [email or web address] Information not available 08/28/2023 Ancestry/Ethn icity Sami, Hebrew Taiwanese, Rwandan, Sweedish [email or web address] Information not available 08/28/2023 How Much Tobacco Do You Smoke? No [email or web address] Information not available 08/28/2023 How Many Years Have You Smoked Tobacco? 0 [email or web address] Information not available 08/28/2023 Sex: Unknown Functional Status Question Answer Note LastModified by Organizat ion Details LastModified Time What is your level of alcohol consumption? None [email or web address] Information not available 08/28/2023 Are you currently employed? 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 [email or web address] Information not available 08/28/2023 What is your exercise level? Occasional [email or web address] Information not available 08/28/2023 Mental Status None [...] ICD10 Code Diagnosis IMO Codes Diagnosis Note [address] [place] [facility] [address], [address] [place] [address] 01/06/2025 07:36:19 01/12/2025 12:12:53 Chronic constipation 233129148 K59.09 Pt has extensive history of constipati on; pt to optimize fiber/ hydration. Taking magnesium citrate Abdominal bloating 52703 9008 R14.0 Pt does not know what is bloating/ what is weight gain or endometrio sis. Discussing digestion and lifestyle. Meeting with Delphine wiley weight gain [id number] 36527 R63.5 Working on balancing diet, encouragin g to increase physical movement. [place] [address] DANILO Barth [place] [facility] [address] [place] [address] 02/01/2025 07:33:31 02/02/2025 08:37:10 Chronic constipation 507103104 K59.09 02/01/25: Mg citrate 3 caps per [...] evaluation , food sensitivit ies. 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 Will [...] evaluation , food sensitivit ies. Abdominal bloating 17144 9008 R14.0 02/01/25: Start above GI treatment- [...] food sensitivit ies. Unintentio nal weight gain [id number] 79537 R63.5 02/01/25: Has noticed clothes have been fitting more loosely since starting LDN and face less puffy. No weight loss yet. will / 3/25: Met with joni- waqas pretty healthy. Focus on treating underlying sources [...] stool evaluation , food sensitivit ies. Tinnitus 67603670 H93.13 11/29/24: On/off, cont to monitor. Check Bartonella FISH 5: Check SIBO test, food sensitivit ies, [facility] labs, Humap: Improved. Will continue to monitor.02/14: Will start optimizing nutrition and nutritiona l deficienci es and follow up.08/28/23: Will check Lyme testing, Nutritiona l deficienci es, comprehens claus stool evaluation , food sensitivit ies. Depressive disorder 3543 9007 F32.A 02/01/25: A lot more focused since starting LDN, mood fluctuates , has been better this PMS cycle: Cont current plan, will monitor.11/29/24: Tx cheryl tam, support adrenal fatigue. Start Inositol/E strobal. Check Bartonella FISH 5: Check SIBO test, food sensitivit ies, [facility] labs, Humap: No improvemen t yet. Will monitor.02/14: Will start optimizing nutrition and nutritiona l deficienci es and follow up.08/28/23: Will check Lyme testing, Nutritiona l deficienci es, comprehens claus stool evaluation , food sensitivit ies. Fatigue 80682774 R53.83 02/01/25: improved some starting LDN. Will [...] stool evaluation , food sensitivit ies. Candidiasis 77372602 B37 .9 87981 02/01/25: Start Nystatin, plan to discuss starting [...] and then Candibal. Chocolate cyst of ovary 498509739 N80.109 60661 02/01/25: Repeat U/s with no cyst. Met with specialist - said she could monitor or go ahead with surgery. Patient chose to monitor for now as sxs have improved some.: Meets with specialist next week, continue inositol/e strobal11/29: Start Inositol, Estrobal: Has appointmen t with endometrio sis specialist in December 2024 Jagdish thyroiditis 21 578394 E06.3 83533 02/01/25: Doing well on LDN 4.5mg, [email or web address] /3/25: Cont gluten free, start LD11/29/24: TPO 49, trial gluten free 5: Check SIBO test, food sensitivit ies, [facility], Humap Dysmenorrhea 171289506 N 94.6 83882 02/01/25: Less PMS sxs this current cycle, will pilwdew05/ 3/25: Continue Inositol, Estrobal. Will follow up appt with endometrio sis specialist on 12/29. 5: Start Inositol, Estrobal. Meet with Joni for support with insulin resistance . Health Concerns Section Related Observation LastModified by Organization Dettariq ls LastModified Time None Recorded Concern Status LastModified by Organization Details LastModified Time None Recorded Payers Encounter Date Sequence Insurance Name Policy Number Policy Madison Covered Member ID Madison Member ID Guarantor Name 02/01/2025 1 [employer] [facility] ([place] [id number] Bhupinder Horton [id number] Nevaeh Horton Notes Date Note Type Note Provider Name and Address Organization Details Recorded Time 02/01/2025 text/html The visit was conducted with the use of interactive audio and video telecommunications that permits real time communication between patient and provider. The patient provided verbal consent for a virtual visit and was contacted while at home. This call was conducted from the [facility]. This case was discussed with the supervising physician, Dr. Rikki Leonard.02/01/25:Change s since last visit: Chocolate cyst/Possible Endometriosis- Dr. 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 PCP monitor.Weight gain- Clothes looser now. Noticed Llumen device told her she is only burning carbs, but not fats. Lumen results correlate with IR score with labs per pt. Dx wegovy by PCP- hasn't started yet.Constipation- unclear frequency. 3 cap magnesium citrate daily- BM 4-5 days/week. Daily bloatingEnergy-improved energy for work. Does still like lying in bed.Depression/Anxiety- a lot more focused since starting LDN. Mood has been okay. Currently PMSing, could be worse.Movement-Sweating New Allergies- no changes. got silicone wedding band. Labs:GI Effects- elevated methane, ?low stomach acid, +1 yeast, no lactobacillus 12/24/24:Changes since last visit:- No changes, the same- Meeting with hematology this afternoon, endometriosis specialist on Friday.- Feels very inflamed GI Health/Constipation/Blo ating- Up to 4 cap Mg citrate, plans [...] cat who has been a ray of Family-Mingle, had done a lot for the family. [...] elevated 16-OH, low 4-OHQuest BW- CoQ10 0.88, [place] 2.8, Tyron IgM 1.2, Vit D 42, [...] Off OCP since 08/2023. Lasts 4-7days, Regular [id number]. +PMS- cramping, emotional, severe irritability prior to period.Libido: No sex > 1-2yr. Thought libido, but also relationship dynamics. Seeing sex therapist. H/o pain with sex, had evaluated at [facility] and had pelvic floor PT.Relationships: , seeing [...] FT3, zincLyme: Positive TBRF, positive Bartonella henslaePositive YH4Occvmax IgMHigh AAFood sensitivities: 3+ yogurt, 2+ whey, [...] Nutrifoil, B12, Vitamin D, Vitamin E, zyrtec DAINLO Barth [address] [place] [address], [address], [place], [address], [place] [facility] 02/01/2025 17:49:58 OBGyn Episode No OBEpisode recorded.
[2025-02-19 14:31] LABS: MANUAL DIFF FLAG NO
[2025-02-19 14:36] LABS: Hematocrit 39.7 % (37.0-47.0); Hemoglobin 13.6 g/dl (12.0-16.0); Imm Gran Abs Auto 0.05 X10*3/uL (0.00-0.03); Imm Gran Pct Auto 0.6 % (0.0-0.4); Lymphocytes Absolute Auto 2.7 X10*3/uL (1.2-4.9); Mean Corpuscular HGB Conc 34.3 g/dl (31.0-35.0); Mean Corpuscular Hemoglobin 29.1 pg (27.0-33.0); Mean Corpuscular Volume 84.8 fL (80.0-98.0); NRBC Abs Auto 0.000 X10*3/uL (0.0-0.012); NRBC Pct Auto 0.0 /100WBC (0.0-0.2); Platelet Count 126 X10*3/uL (160-400); Red Blood Count 4.68 X10*6/uL (4.20-5.50); White Blood Count 9.0 X10*3/uL (4.8-10.8)
[2025-02-19 14:52] LABS: Alanine Aminotransferase 23 U/L (0-31); Albumin Level 5.0 g/dL (3.5-5.0); Alkaline Phosphatase 84 U/L (39-117); Anion Gap 14 (12-20); Aspartate Amino Transferase 22 U/L (5-31); Blood Urea Nitrogen 12 mg/dL (9-16); Calcium 9.5 mg/dL (8.4-10.2); Carbon Dioxide 23 mmol/L (22-29); Chloride 107 mmol/L (96-108); Creatinine Clr Calc Pharmacy 95.9; Estimated Glomerular Filt Rate > 60; Lipase 33 U/L (8-78); Magnesium 2.1 mg/dL (1.6-2.6); Potassium 3.8 mmol/L (3.3-5.1); Sodium 140 mmol/L (135-145); Total Protein 7.5 g/dL (6.5-8.0)
[2025-02-19 16:29] VITALS: BP 135/77; PULSE 73; RESP 16; TEMP 36.8; O2SAT 99
[2025-02-19 17:48] LABS: Appearance Urine Clear; Glucose Urine UA Negative (Negative); PH 5.5 (5.0-9.0); Specific Gravity - Urine 1.010 (1.005-1.025); UMIC TRIGGER UACC YES
[2025-02-19] MEDS: iohexoL 350 MG/ML 100 ML INFUS..BTL 85 ML IV (18:03)
[2025-02-19 18:14] VITALS: BP 133/76; PULSE 76; RESP 16; TEMP 36.7; O2SAT 100
[2025-02-19 20:10] VITALS: BP 134/82; PULSE 86; RESP 18; TEMP 36.9; O2SAT 99
== END 2025-02-19 20:12 | disposition home or self-care (01) ==
PROVIDERS: Physician Assistant Medical; Emergency Provider Emergency Medicine; PCP Internal Medicine
DX: R10.31 Right lower quadrant pain (principal); K59.00 Constipation, unspecified; K76.9 Liver disease, unspecified; R93.3 Abnormal findings on diagnostic imaging of other parts of digestive tract
CPT/HCPCS: 36415; 74177; 76857; 80053; 81001; 83690; 83735; 84702; 85025; 86140; 96360; 96361; 99284; 99285; Q9967

== ENCOUNTER → 2025-02-19 17:30 | Outpatient (BNV) | payer OTHER, SELFPAY | PROVIDERS: Emergency Provider Emergency Medicine; PCP Internal Medicine; Visit Provider Radiology Neuroradiology | DX: K38.1 Appendicular concretions (principal); N32.89 Other specified disorders of bladder | CPT/HCPCS: 74177 ==

== ENCOUNTER 2025-02-25 13:04 | Outpatient (AMB) | payer OTHER, SELFPAY ==
--- NOTE | 2025-02-25 13:05 | MHC.PC.OV ---
Vital Signs 02/25/25 13:08 Height 5 ft 6 in Weight 189 lb 4 oz BMI 30.5 BP 104/74 Blood Pressure Location Lt brachial Position Sitting Respiration 16 Pulse 76 Pulse Source Pulse Oximeter Temp 97.1 F Temp Source Temporal Artery Scan Pulse Oximetry (%) 98 Oxygen Delivery Method Room Air Intake Visit Reasons: Hospital follow up Switch Operators Supervisor Required: No Accompanied by: Self / Same As Patient Allergies adhesive tape Allergy (Verified 02/25/25 13:06) Rash oats Allergy (Verified 02/25/25 13:06) Itching wheat Allergy (Verified 02/25/25 13:06) Itching Medication List - Last Reconciled 02/25/25 by Jing Coffey MD betamethasone, augmented 0.05 % appl topical buspirone 7.5 mg PO BID cetirizine 10 mg PO DAILY desvenlafaxine succinate ER 100 mg PO DAILY desvenlafaxine succinate ER 50 mg PO DAILY naltrexone mg PO .QD norethindrone-e.estradiol-iron 1.5 mg-30 mcg (21)/75 mg (7) ( FE 1.5/ (28)) 1 tab PO DAILY nystatin 1,000,000 units PO BID polyethylene glycol 3350 (Miralax) 17 grams PO DAILY semaglutide (weight loss) (Wegovy) 0.25 mg (0.5 mL) subcut QWEEK trazodone 50 mg PO BEDTIME Tobacco use date assessed: 01/31/25 Dental Screening Dental Screen Date: 01/31/25 HPI HPI Comments History of Present Illness Details The patient is a 39 year old female presenting with for follow-up on a recent Emergency Department visit for severe abdominal pain and for management of her weight loss medication. Endometriosis: The patient has a history of endometriosis and recently presented to the emergency department with a severe, twisting, and tangled abdominal pain sensation, which she also described as a tearing feeling upon standing. A CT scan at that time showed inflammation near the bladder and rectal area. She is under the care of a specialist, in [place], and is contemplating surgical intervention, though she has concerns regarding the potential extent of the surgery, recovery time Constipation and Abdominal Pain: She was found to have severe stool on a recent CT scan. She self-treated with multiple doses of MiraLax, senna laxative chocolate, and Smooth Move tea, which led to a bowel movement. Since then, she has been having daily liquid stools. The initial constipation and abdominal pain episode occurred after starting a new weight loss medication. Liver Cyst: A recent CT scan revealed an incidental finding of a 2 mm cyst-like lesion on the liver. Ovarian Cyst: A CT scan showed a cyst on her ovary. Weight Management: The patient is taking a weight loss injection and is currently on her third shot of the starting dose. She initially experienced severe nausea for two weeks after her first shot. She reports no nausea with her most recent shot. She reports having gained weight since her first visit but notes her clothes feel looser. Following her episode of severe constipation, she is now eating smaller portions and drinking more slowly. [facility] Medical History (Updated 02/25/25 @ 17:58 by Jing Coffey MD) Hepatic cyst Endometriosis Prediabetes Anemia, unspecified Idiopathic thrombocytopenic purpura (ITP) Anxiety Depression Surgical History History of bilateral breast reduction surgery History of tonsillectomy History of loop electrical excision procedure (LEEP) History of lumpectomy of left breast Family History (Updated 01/31/25 @ 09:34 by Jing Coffey MD) Mother Bicuspid aortic valve Borderline diabetes Primary hypertension Osteoporosis Sleep apnea Paternal Grandfather Stroke Skin cancer FH: prostate cancer Maternal Grandfather Alcoholism Paternal Grandmother Pulmonary embolism Social History Housing: House Alcohol intake: former Patient Tobacco Use Status: Never used Tobacco e-Cigarette/Vaping Use: Never Used service: No Current occupational status: employed 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 1. Little interest or pleasure in doing things: not at all 2. Feeling down, depressed, or hopeless: not at all 3. Trouble falling or staying asleep, or sleeping too much: not at all 4. Feeling tired or having little energy: several days 5. Poor appetite or overeating: not at all 6. Feeling bad about yourself - or that you are a failure or have let yourself or your family down: several days 7. Trouble concentrating on things, such as reading the newspaper or watching television: not at all 8. Moving or speaking so slowly that other people could have noticed. Or the opposite - being so fidgety or restless that you have been moving around a lot more than usual: not at all 9. Thoughts that you would be better off or of hurting yourself in some way: not at all Total score: 2 Depression Screening Interpretation: Negative Depression Screening Done: Yes 45442 - PHQ-9 Billing: Yes Source: Developed by Drs. Mendoza Child, Catia Nuñez, Jay Jay Cardona and colleagues, with an educational pantera from [email or web address] AUDIT C Alcohol Use Questionnaire (AUDIT-C) 1. How often do you have a drink containing alcohol?: Never 3. How often do you have six or more drinks on one occasion?: Never Total Score: 0 Review of Systems Narrative Review of Systems - Gastrointestinal: per hpi - Genitourinary: Denies symptoms of a urinary tract infection. Physical exam (Primary Care) Vital Signs: Last Vital Signs Temp 97.1 F 02/25/25 13:08 Pulse 76 02/25/25 13:08 Resp 16 02/25/25 13:08 BP 104/74 02/25/25 13:08 Pulse Ox 98 02/25/25 13:08 Oxygen Delivery Method Room Air 02/25/25 13:08 BMI result Body Mass Index 30.5 Tobacco/Smoking Status: Tobacco use Status Tobacco use date assessed 01/31/25 02/25/25 13:13 Patient Tobacco Use Status Never used Tobacco 02/25/25 13:13 e-Cigarette/Vaping Use Never Used 02/25/25 13:13 PHQ-9: PHQ-9 Score PHQ-9: Total score 2 02/25/25 13:13 Depression Screening Interpretation: Negative Narrative Physical Exam - Cardiovascular: Regular rate and rhythm. - A soft heart murmur is present, unchanged from prior exam. - Pulmonary: Lungs are clear to auscultation bilaterally. - Abdomen: Soft and non-tender to palpation and percussion. - Bowel sounds are normal. Coding Level of Care Code Est Pt Level 4 (19805) Complex visit Add On G2211 Diagnoses Endometriosis N80.9 Constipation, unspecified constipation type K59.00 Constipation type: unspecified constipation type Hepatic cyst K76.89 Additional Codes PHQ-9 - 76770 - PHQ-9 Billing: Yes ([id number]) Assessment & Plan Assessment & Plan (1) Endometriosis: Code(s): N80.9 - Endometriosis, unspecified Category: Medical (2) Constipation: Code(s): K59.00 - Constipation, unspecified Category: Medical Qualifiers: Constipation type: unspecified constipation type Qualified Code(s): K59.00 - Constipation, unspecified (3) Hepatic cyst: Code(s): K76.89 - Other specified diseases of liver Category: Medical Plan Assessment and Plan 1. Endometriosis - She will continue follow-up with her specialist 2. Constipation and Diarrhea - The patient had severe constipation, likely exacerbated by her new weight loss medication, which she successfully treated with ldri-zvw-ubptlkg laxatives. - Plan is to monitor her bowel movements and ensure she maintains adequate hydration. 3. Incidental Liver Cyst - A 2 mm liver cyst was noted on CT. - A follow-up liver ultrasound is planned in 6 months for monitoring. 4. Weight Management and Medication Side Effects - The patient is on a weight loss injection and experienced initial severe nausea, which has now resolved. - A prescription for the next dosage strength (0.5 mg) will be sent to the pharmacy. - The plan is for a slower titration schedule of 4-6 weeks to improve tolerance. 5. Incidental Splenomegaly - The patient's spleen was noted to be on the upper limit of normal size on CT. - She will follow up at her scheduled hematology appointment to discuss this and her platelets. Plan - A liver ultrasound will be scheduled in approximately 6 months to monitor the incidental liver cyst. - A new prescription for the 0.5 mg dose of her injectable weight loss medication will be sent to the pharmacy. - The patient will titrate her weight loss medication dose slowly, increasing every 4 to 6 weeks as tolerated, and will report any significant side effects. - The patient is to continue eating smaller portions and monitor for dehydration due to liquid stools. - The patient will keep her scheduled appointment with hematology to discuss borderline splenomegaly and thrombocytopenia. Discussion Notes We reviewed the management of her injectable weight loss medication. Given her initial severe nausea, I will send a prescription for the next dose (0.5 mg) but advised a slower titration schedule of every 4-6 weeks to improve tolerability. I reinforced that she should not take if she has severe side effects and should contact the office if they occur. Patient Instructions - We will arrange for you to have a follow-up liver ultrasound in about 6 months. - I am sending a new prescription for the next dose (0.5 mg) of your weight loss shot to your pharmacy. - You will increase your dose more slowly, every 4 to 6 weeks, to help prevent nausea. - Make sure to drink plenty of fluids to stay hydrated, especially while you are having loose stools. - Keep your scheduled appointment with the stamping machine operator. Orders: Orders US abdomen limited 6 Months K76.89 - Other specified diseases of liver Medications: New semaglutide (weight loss) (Wegovy) administer weeks 5 through 8 of therapy 0.5 mg (0.5 mL) subcut QWEEK 2 mL 1RF Discontinued semaglutide (weight loss) (Wegovy) administer weeks 1 through 4 of therapy Discontinued Reason: Doctor's Order 0.25 mg (0.5 mL) subcut QWEEK 2 mL 1RF
[2025-02-25 13:08] VITALS: BP 104/74; PULSE 76; RESP 16; TEMP 36.2; O2SAT 98; BMI 30.5
--- OUTSIDE RECORDS SUMMARY | 2025-02-25 17:01 | XMS_ITS | Encounter Summary ---
Author Organization [facility] Address [address] [facility] [address] [place] [phone] Phone Care Team Providers Care Stock Ranch Supervisor Name Role Phone Jing Coffey MD Primary Care Provider + Encounter Details Date Type Department Care Team (Late st Contact Info) Description 02/24/2023 Procedure Pass [facility] [place] [facility] [address] [place] [phone] Social History Tobacco Use Types Packs/Day Years [...] on filedocumented in this encounter Care Teams Stock Ranch Supervisor Relationship Specialty Start Date End Date Jing Coffey MD PCP - General Internal Medicine 08/10/18 documented as of this encounter Additional Source Comments The information contained in this document represents components of the legal health record. It is not the complete legal health record.[facility]
--- OUTSIDE RECORDS SUMMARY | 2025-02-25 17:01 | XMS_ITS | Clinical Summary ---
Author Organization [facility] Address [address] [place] [id number] Care Team Providers Care Hair Spring Winder Name Role Phone Unknown Primary Care Provider [phone] Allergies Active Allergy Reactions Criticality Noted Date [...] Description 01/26/2025 1:30 PM EST Ancillary Procedure [facility] [address] [place] [phone] Provider, File Room 01/07/2025 8:05 AM EDT Ancillary Procedure [facility] [address] [place] [phone] Provider, File Room 01/04/2025 Scanned Document [facility] at [facility] [address] [place] [phone] Brandon Lam MD 12/27/2024 1:00 PM EDT Office Visit [facility] [address] [facility] [address] [place] [address] Brandon Lam MD Endometrioma of left [...] IMG DIGITIZE FILMS Final Resu lt SCOTTIE [phone] * MOY Archive for reference only MR (01/07/2025 8:05 AM EDT) Narrative SCOTTIE - 01/07/2025 8:03 AM EDT This order has been auto-finalized and does not contain a result. us File Room Provider IMG DIGITIZE FILMS Final Resu lt SCOTTIE [phone] from Last 3 Months Insurance PPO Care Teams Hair Spring Winder Relationship Specialty Start Date End Date Unknown Unknow Provider Address PCP - General 10/18/24
--- OUTSIDE RECORDS SUMMARY | 2025-02-25 17:01 | XMS_ITS | Clinical Summary ---
Author Organization [facility] Address [address] [place] [phone] Phone Care Team Providers Care Air Conditioning Installer Supervisor Name Role Phone Jing Coffey MD [...] topic Medical Devices Not on file Insurance [employer]ISTRAT[employer]IST[employer]ISTR[employer] Versium ADMINISTRATORS Mechanology ADMINISTRATORS [employer] ADMINISTRATORS Care Teams Air Conditioning Installer Supervisor Relationship Specialty Start Date End Date Jing Coffey MD PCP - General Internal Medicine 08/10/18 Additional Source Comments The information contained in this document represents components of the legal health record. It is not the complete legal health record.[facility]
--- OUTSIDE RECORDS SUMMARY | 2025-02-25 17:01 | XMS_ITS | Encounter Summary ---
Author Organization [facility] Address [address] [address] Phone Care Team Providers Care Toy Stuffer Name Role Phone Jing Coffey MD Primary Care Provider + Reason for Referral * Physical Therapy (Routine) - Closed Specialty Diagnoses / Procedures Referred By Contac t Referred To Contact Physical Therapy Diagnoses Urinary incontinence, unspecified type Pelvic pain Low back pain, unspecified back pain laterality, unspecified chronicity, with sciatica presence unspecified System, Provider Not In, PhD [id number] [place] [address] Phone: tel: Referral ID Status Reason Start Date Expiration Date Visits Re quested Visits Authorized [id number] Closed 09/25/2018 09/21/2019 30 30 Encounter Details Date Type Department Care Team (Latest Contact Info) Description 08/10/2018 Transcribe Orders [facility] [address] [place] [address] Jing Coffey MD [address] [place] [phone] Urinary incontinence, unspecified type (Primary Dx); Pelvic [...] Date/Time Associated Diagnosis Comments AMB REFERRAL TO [facility] Routine 09/28/2018 1:18 PM EDT Urinary incontinence, unspecified type Pelvic pain Low back pain, unspecified back pain laterality, unspecified chronicity, with sciatica presence unspecified documented in this encounter Results * Ambulatory referral to [facility] (09/28/2018 1:18 PM EDT) us Provider Not In System PhD AMB [facility] REFERR[facility] Fin al Result documented in this encounter Visit Diagnoses Diagnosis Urinary incontinence, unspecified type- Primary Pelvic pain Low back pain, unspecified back pain laterality, unspecified chronicity, with sciatica presence unspecified documented in this encounter Care Teams Toy Stuffer Relationship Specialty Start Date End Date Jing Coffey MD PCP - General Internal Medicine 08/10/18 documented as of this encounter Additional Source Comments The information contained in this document represents components of the legal health record. It is not the complete legal health record.[facility]
--- OUTSIDE RECORDS SUMMARY | 2025-02-25 17:01 | XMS_ITS | Encounter Summary ---
Author Organization [facility] Address [address] [place] [address] Care Team Providers Care Rn Invasive Name Role Phone Unknown Primary Care Provider [phone] Encounter Details Date Type Department Care Team ([facility] st Contact Info) Description 01/04/2025 Scanned Document [facility] [place] [phone] Brandon Lam MD [address] [place] [id number] Social History Tobacco Use Types Packs/Day Years [...] on filedocumented in this encounter Care Teams Rn Invasive Relationship Specialty Start Date End Date Unknown Unknow Provider Address PCP - General 10/18/24 documented as of this encounter
== END 2025-02-25 13:44 | disposition home or self-care (01) ==
LOC: HO.HMCHD 13:05
PROVIDERS: PCP Internal Medicine; Visit Provider Internal Medicine
DX: N80.9 Endometriosis, unspecified (principal); K59.00 Constipation, unspecified; K76.89 Other specified diseases of liver

== ENCOUNTER → 2025-02-25 13:04 | Outpatient (BNVA) | payer OTHER, SELFPAY | PROVIDERS: PCP Internal Medicine; Visit Provider Internal Medicine | DX: N80.9 Endometriosis, unspecified (principal); K59.00 Constipation, unspecified; K76.89 Other specified diseases of liver | CPT/HCPCS: 96127 ==

== ENCOUNTER → 2025-03-14 14:15 | Outpatient (BNV) | payer OTHER, SELFPAY | PROVIDERS: PCP Internal Medicine; Referring Provider Internal Medicine; Visit Provider Nurse Practitioner Family | DX: D69.3 Immune thrombocytopenic purpura (principal); D72.820 Lymphocytosis (symptomatic); K76.9 Liver disease, unspecified | CPT/HCPCS: 99204 ==